=== PATIENT | female | born 1940 | race Caucasian/White ===

== ENCOUNTER 2020-02-20 11:49 | Observation (INO) | payer MEDICARE ==
[~2020-02-20] VITALS: Ht 152 cm; Wt 70.9 kg
[2020-02-20 12:03] LABS: BASOPHILS % (AUTO) 1 % (0-10); EOSINOPHILS # (AUTO) 0.3 10^3/uL (0.0-0.3); EOSINOPHILS % (AUTO) 5 % (0-10); HEMATOCRIT 30 % (35-52); HEMOGLOBIN 9.8 G/DL (11.5-16.0); LYMPHOCYTES # (AUTO) 1.1 X 10^3 (1.0-4.0); LYMPHOCYTES % (AUTO) 20 % (12-44); MEAN CORPUSCULAR HEMOGLOBIN 29 PG (25-34); MEAN CORPUSCULAR HGB CONC 32 G/DL (32-36); MEAN CORPUSCULAR VOLUME 91 FL (80-99); MEAN PLATELET VOLUME 9.4 FL (7.4-10.4); MONOCYTES # (AUTO) 0.6 X 10^3 (0.0-1.0); MONOCYTES % (AUTO) 11 % (0-12); NEUTROPHILS # (AUTO) 3.5 X 10^3 (1.8-7.8); NEUTROPHILS % (AUTO) 64 % (42-75); PLATELET COUNT 289 10^3/uL (130-400); RED CELL DISTRIBUTION WIDTH 12.7 % (10.0-14.5); WHITE BLOOD COUNT 5.5 10^3/uL (4.3-11.0)
[2020-02-20 12:10] LABS: ALBUMIN 3.9 GM/DL (3.2-4.5); CHLORIDE 104 MMOL/L (98-107); POTASSIUM 4.6 MMOL/L (3.6-5.0); SODIUM 136 MMOL/L (135-145)
--- NOTE | 2020-02-20 12:10 | ED Head Injury ---
General Chief Complaint: Trauma-Non Activation Stated Complaint: FALL Nursing Triage Note: FALL AT [facility] AFTER DIZZINESS Source: patient Exam Limitations: no limitations History of Present Illness Date Seen by Provider: Feb 20, 2020 Time Seen by Provider: 12:08 Initial Comments To ER by EMS from [facility] with reports of a fall and subsequent head injury. She was at [facility] when she began to feel hot and dizzy and then collapsed. Reportedly she was unresponsive for about 5 minutes afterwards. Upon EMS arrival she was nauseated. She did vomit in route to the hospital and was given Zofran which resolved her nausea. She does have persistent dizziness. No headache. No neck pain. No other injury. She does not remember falling. She denies any palpitations chest pain or shortness of breath preceding the fall or after the fall. Location Injury Occurred: [facility] Occurred: just prior to arrival Severity: moderate Associated Systoms: Nausea/Vomiting Allergies and Home Medications Allergies Coded Allergies: No Known Drug Allergies (Unverified , 02/20/20) Patient Home Medication List Home Medication List Reviewed: Yes Review of Systems Review of Systems Constitutional: see HPI Eyes: No Symptoms Reported Ears, Nose, Mouth, Throat: no symptoms reported Respiratory: no symptoms reported Cardiovascular: no symptoms reported Gastrointestinal: nausea, vomiting Genitourinary: no symptoms reported Musculoskeletal: no symptoms reported Skin: no symptoms reported Psychiatric/Neurological: No Symptoms Reported; Denies Headache Endocrine: No Symptoms Reported Hematologic/Lymphatic: No Symptoms Reported Past Jobgfst-Jpeejc-Hetcjt Hx Patient Social History Alcohol Use: Denies Use Recreational Drug Use: No Smoking Status: Never a Smoker Recent Hopitalizations: No Physical Abuse: No Sexual Abuse: No Seasonal Allergies Seasonal Allergies: Yes Physical Exam Vital Signs Vital Signs - First Documented 02/20/20 11:49 Temp 36.5 Pulse 67 Resp 17 B/P (MAP) 160/87 (111) Pulse Ox 97 Capillary Refill : Height, Weight, BMI Height: '" Weight: lbs. oz. kg; BMI Method: General Appearance: WD/WN, no apparent distress, other (alert. Converses with us appropriately. No bleeding scalp wound.) HEENT: PERRL/EOMI, normal ENT inspection, TMs normal, other (no Briones sign no hemotympanum) Neck: non-tender, full range of motion; No tender lateral, No tender midline Cardiovascular: regular rate, rhythm, no murmur Respiratory: normal breath sounds, no respiratory distress, no accessory muscle use Gastrointestinal: normal bowel sounds, non tender, soft Extremities: normal range of motion, non-tender Psychiatric: alert, oriented x 3 [place] Coma Score Best Eye Response: (4) Open Spontaneously Best Verbal Response: (5) Oriented Best Motor Response: (6) Obeys Commands [place] Total: 15 Progress/Results/Core Measures Results/Orders Lab Results Laboratory Tests Test 02/20/20 11:55 02/20/20 12:30 Range/Units White Blood Count 5.5 4.3-11.0 10^3/uL Red Blood Count 3.36 L 4.35-5.85 10^6/uL Hemoglobin 9.8 L 11.5-16.0 G/DL Hematocrit 30 L 35-52 % Mean Corpuscular Volume 91 80-99 FL Mean Corpuscular Hemoglobin 29 25-34 PG Mean Corpuscular Hemoglobin Concent 32 32-36 G/DL Red Cell Distribution Width 12.7 10.0-14.5 % Platelet Count 289 130-400 10^3/uL Mean Platelet Volume 9.4 7.4-10.4 FL Neutrophils (%) (Auto) 64 42-75 % Lymphocytes (%) (Auto) 20 12-44 % Monocytes (%) (Auto) 11 0-12 % Eosinophils (%) (Auto) 5 0-10 % Basophils (%) (Auto) 1 0-10 % Neutrophils # (Auto) 3.5 1.8-7.8 X 10^3 Lymphocytes # (Auto) 1.1 1.0-4.0 X 10^3 Monocytes # (Auto) 0.6 0.0-1.0 X 10^3 Eosinophils # (Auto) 0.3 0.0-0.3 10^3/uL Basophils # (Auto) 0.0 0.0-0.1 10^3/uL Sodium Level 136 135-145 MMOL/L Potassium Level 4.6 3.6-5.0 MMOL/L Chloride Level 104 98-107 MMOL/L Carbon Dioxide Level 19 L 21-32 MMOL/L Anion Gap 13 5-14 MMOL/L Blood Urea Nitrogen 29 H 7-18 MG/DL Creatinine 1.89 H 0.60-1.30 MG/DL Estimat Glomerular Filtration Rate 26 BUN/Creatinine Ratio 15 Glucose Level 209 H 70-105 MG/DL Calcium Level 8.9 8.5-10.1 MG/DL Corrected Calcium 9.0 8.5-10.1 MG/DL Total Bilirubin 0.3 0.1-1.0 MG/DL Aspartate Amino Transf (AST/SGOT) 11 5-34 U/L Alanine Aminotransferase (ALT/SGPT) 6 0-55 U/L Alkaline Phosphatase 41 40-136 U/L Troponin I < 0.028 <0.028 NG/ML Total Protein 6.4 6.4-8.2 GM/DL Albumin 3.9 3.2-4.5 GM/DL Urine Color YELLOW Urine Clarity CLEAR Urine pH 6.0 5-9 Urine Specific [place] 1.020 1.016-1.022 Urine Protein NEGATIVE NEGATIVE Urine Glucose (UA) NEGATIVE NEGATIVE Urine Ketones NEGATIVE NEGATIVE Urine Nitrite NEGATIVE NEGATIVE Urine Bilirubin NEGATIVE NEGATIVE Urine Urobilinogen 0.2 < = 1.0 MG/DL Urine Leukocyte Esterase NEGATIVE NEGATIVE Urine RBC (Auto) NEGATIVE NEGATIVE Urine RBC NONE /HPF Urine WBC RARE /HPF Urine Squamous Epithelial Cells 2-5 /HPF Urine Crystals NONE /LPF Urine Bacteria NEGATIVE /HPF Urine Casts NONE /LPF Urine Mucus NEGATIVE /LPF Urine Culture Indicated NO My Orders Orders - RACHELLE BLACKMAN APRN Cbc With Automated Diff (02/20/20 11:56) Comprehensive Metabolic Panel (02/20/20 11:56) Ua Culture If Indicated (02/20/20 11:56) Troponin I (02/20/20 11:56) Ekg Tracing (02/20/20 11:56) Ct Head/Cervical Spine Wo (02/20/20 11:56) Chest 1 View, Ap/Pa Only (02/20/20 11:56) Lactated Ringers (Lr 1000 Ml Iv Solution (02/20/20 12:30) Vital Signs/I&O 02/20/20 11:49 Temp 36.5 Pulse 67 Resp 17 B/P (MAP) 160/87 (111) Pulse Ox 97 Diagnostic Imaging Diagonstic Imaging: Xray, CT Comments NAME: YADI REDDING MED REC#: [id number] PT STATUS: REG ER : 1940 PHYSICIAN: RACHELLE BLACKMAN APRN ADMIT DATE: 02/20/20/ER Draft Date of Exam:02/20/20 CT HEAD/CERVICAL SPINE WO PROCEDURE: CT head and CT cervical spine without contrast. TECHNIQUE: Multiple contiguous axial images were obtained through the brain and cervical spine without the use of intravenous contrast. Sagittal and coronal reformations through the cervical spine were then performed. Auto Exposure Controls were utilized during the CT exam to meet ALARA standards for radiation dose reduction. INDICATION: Fall. Syncope. FINDINGS: CT HEAD: There is mild cortical atrophy. are not dilated. Diffuse bilateral periventricular white matter changes. There is a 10 mm area of decreased density more focally in the mid right centrum semi-ovale. Brainstem appears normal. Pituitary is not enlarged. No intracranial hemorrhage. Basal cisterns are clear. The mastoid air cells are clear. Paranasal sinuses are clear where visualized. IMPRESSION: 1. No acute intracranial abnormalities demonstrated. 2. Diffuse white matter changes with more focal area of decreased signal in the mid centrum semi-ovale measuring 10 mm which may represent old lacunar infarct. No previous studies for comparison. If clinically warranted MRI of the brain with evaluate further for acuity. CT CERVICAL SPINE: Sagittal and coronal reformatted images. There is good alignment. Body height is well-maintained. Advanced degenerative disc disease noted from C3 through C7. There is considerable loss of disc space height at C3-C4, C4-C5 C5-C6 and C6-C7. Mild hypertrophic endplate changes without significant stenosis noted. The odontoid intact with moderate degenerative change. The right lobe of the thyroid does appear to be significantly enlarged, concern of large nodule. IMPRESSION: 1. Advanced degenerative cervical disc disease throughout as described with no acute changes demonstrated. 2. Concern of thyroid nodule on the right. Dictated on workstation # [id number] Dict: 02/20/20 1238 Trans: 02/20/20 1254 CV [id number] Interpreted by: RHODA MCNAMARA MD Electronically signed by: Chest x-ray shows cardiomegaly but no other abnormality. Departure Communication (Admissions) Time/Spoke to Admitting Phy: 13:37 1254-still alert and oriented. Reviewed home med list, not on oral antic oagulants. Labs unremarkable except for some kidney dysfunction which they started on the BUN/creatinine ratio was believed to be chronic likely an effect of diabetes rather than a prerenal cause. No vomiting here. Awaiting CT report. Orthostatic vital signs being obtained now. 1337-there was no orthostatic hypotension during our orthostatic blood pressure checks. Spoke with Dr. Mcdaniels, we'll admit consult Dr. Underwood. Impression Primary Impression: Syncope and collapse Additional Impression: Concussion Disposition: ADMITTED INPATIENT Condition: Stable Admissions Decision to Admit Reason: Admit from ER (General) Decision to Admit/Date: Feb 20, 2020 Time/Decision to Admit Time: 13:37 Departure-Patient Inst. Decision time for Depature: 12:58 Patient Instructions: Syncope (Fainting) (DC) Add. Discharge Instructions: 1. Call your doctor tomorrow to make an appointment to be seen for follow-up. Return to ER for any recurrent symptoms or other concerns. All discharge instructions reviewed with patient and/or family. Voiced understanding. Copy Copies To 1: MADI MCDANIELS PETER J APRN Feb 20, 2020 12:10
[2020-02-20 12:11] LABS: CALCIUM 8.9 MG/DL (8.5-10.1)
[2020-02-20 12:12] LABS: GLUCOSE 209 MG/DL (70-105); TOTAL PROTEIN 6.4 GM/DL (6.4-8.2)
[2020-02-20 12:13] LABS: CARBON DIOXIDE 19 MMOL/L (21-32)
[2020-02-20 12:14] LABS: BILIRUBIN,TOTAL 0.3 MG/DL (0.1-1.0)
[2020-02-20 12:16] LABS: ALKALINE PHOSPHATASE 41 U/L (40-136); CREATININE SERUM 1.89 MG/DL (0.60-1.30); GFR ESTIMATED 26
[2020-02-20 12:17] LABS: BUN/CREATININE RATIO 15
[2020-02-20 12:19] LABS: ALANINE AMINOTRANSFERASE 6 U/L (0-55)
[2020-02-20] MEDS ORDERED: LACTATED RINGERS 1,000 ML IV SCH (12:30)
--- NOTE | 2020-02-20 12:34 | Diagnostic Imaging Report ---
INDICATION: Syncope with fall. FINDINGS: Portable AP chest. The lungs are well-aerated and clear. Heart upper limits of normal. Aorta is atherosclerotic. No evidence of pulmonary edema or hilar adenopathy. No pneumothorax or pleural effusion. No bony abnormalities. IMPRESSION: Mild cardiomegaly without acute change. Dictated by: Dictated on workstation # [id number]
[2020-02-20 12:37] LABS: BILIRUBIN,URINE NEGATIVE (NEGATIVE); CLARITY,URINE CLEAR; COLOR,URINE YELLOW; GLUCOSE, URINE (UA) NEGATIVE (NEGATIVE); KETONES,URINE NEGATIVE (NEGATIVE); LEUKOCYTE ESTERASE ,URINE NEGATIVE (NEGATIVE); NITRITE,URINE NEGATIVE (NEGATIVE); PROTEIN,URINE NEGATIVE (NEGATIVE)
[2020-02-20 12:44] LABS: BACTERIA,URINE NEGATIVE /HPF; WBC,URINE RARE /HPF
--- NOTE | 2020-02-20 12:54 | Diagnostic Imaging Report ---
PROCEDURE: CT head and CT cervical spine without contrast. TECHNIQUE: Multiple contiguous axial images were obtained through the brain and cervical spine without the use of intravenous contrast. Sagittal and coronal reformations through the cervical spine were then performed. Auto Exposure Controls were utilized during the CT exam to meet ALARA standards for radiation dose reduction. INDICATION: Fall. Syncope. FINDINGS: CT HEAD: There is mild cortical atrophy. The ventricles Are not dilated. Diffuse bilateral periventricular white matter changes. There is a 10 mm area of decreased density more focally in the mid right centrum semi-ovale. Brainstem appears normal. Pituitary is not enlarged. No intracranial hemorrhage. Basal cisterns are clear. The mastoid air cells are clear. Paranasal sinuses are clear where visualized. IMPRESSION: 1. No acute intracranial abnormalities demonstrated. 2. Diffuse white matter changes with more focal area of decreased signal in the mid centrum semi-ovale measuring 10 mm which may represent old lacunar infarct. No previous studies for comparison. If clinically warranted MRI of the brain with evaluate further for acuity. CT CERVICAL SPINE: Sagittal and coronal reformatted images. There is good alignment. Body height is well-maintained. Advanced degenerative disc disease noted from C3 through C7. There is considerable loss of disc space height at C3-C4, C4-C5 C5-C6 and C6-C7. Mild hypertrophic endplate changes without significant stenosis noted. The odontoid intact with moderate degenerative change. The right lobe of the thyroid does appear to be significantly enlarged, concern of large nodule. IMPRESSION: 1. Advanced degenerative cervical disc disease throughout as described with no acute changes demonstrated. 2. Concern of thyroid nodule on the right. Dictated by: Dictated on workstation # [id number]
--- NOTE | 2020-02-20 13:20 | NUR ---
DR JUSTIN HERE TO SEE PT
[2020-02-20 13:51] VITALS: BP_SYST 143; BP_SYST 159; BP_DIAS 61; BP_DIAS 70
--- NOTE | 2020-02-20 14:10 | NUR ---
YADI REDDING Rafi admitted to room 421-1, with an admitting diagnosis of SYNCOPE, on 02/20/20 from ED via , accompanied by STAFF. YADI REDDING introduced to surroundings, call light, bed controls, phone, TV, temperature control, lights, meal times, smoking policy, visitor policy, side rail policy, bathrooms and showers. Patient Rights given to patient in the handbook. YADI REDDING verbalizes understanding that [facility] is not responsible for the loss or damage to any personal effects or valuables that are kept in the patients posession during their hospitalization. The following Patient Care Plans were discussed with the PT: Discharge Planning, PAIN, AND SYNCOPE. YADI REDDING verbalizes understanding of Interdisciplinary Patient Education. Patient and/or family were informed about the Rapid Response Team and its purpose.
[2020-02-20 14:13] VITALS: BP 171/72
--- NOTE | 2020-02-20 14:21 | Consultation-Cardiology ---
HPI-Cardiology Cardiology Consultation: Date of Consultation 02/20/20 Date of Admission Attending Physician Sindhu Webster DO Admitting Physician Sindhu Webster DO Consulting Physician Shruthi UNDERWOOD MD HPI: Time Seen by a Provider: 13:00 Chief Complaint: Syncope this is a 79-year-old lady who denies any past cardiac history. She was brought by emergency services from the [facility] where she passed out. According to the patient she hada small breakfast. She was not dehydrated. She was standing in the [employer] and became dizzy and passed out. She denies having any chest pain or shortness of breath before passing out. She does not remember how long she was passed out. Other people told the EMS that she was out for a few minutes. Her blood pressure was stable. She was not orthostatic in the ER. CT scanof the head does not show any acute head or cervical injury. She has history of diabetes. She denies active smoking. Pertinent family history is negative. As mentioned earlier she denied chest pain or shortness of breath. Review of Systems-Cardiology Review of Systems Constitutional: As described under HPI; No As described under HPI, No no symptoms reported, No chills, No fever, No lightheadedness Eyes: No As described under HPI, No no symptoms reported, No blindness, No blurred vision, No contact lenses, No drainage, No decreased acuity, No foreign body sensation, No pain, No vision change Ears/Nose/Throat: No As described under HPI, No no symptoms reported, No chronic hearing loss, No ear discharge, No ear pain, No nasal drainage, No ulcerations Respiratory: No no symptoms reported; As described under HPI; No As described under HPI, No cough, No orthopnea, No shortness of breath, No SOB with excertion Cardiovascular: No no symptoms reported; As described under HPI; No As described under HPI, No chest pain, No edema, No irregular heart rate, No lightheadedness, No palpitations; syncope Gastrointestinal: No no symptoms reported, No As described under HPI, No abdomen distended, No abdominal pain, No blood streaked bowels, No constipation, No diarrhea, No nausea, No vomiting, No stool coloration changes Genitourinary: No As described under HPI, No burning, No dysuria, No discharge, No frequency, No flank pain, No hematuria, No urgency : Yes : No Skin: No rash, No skin related problems, No ulcerations Psychiatric/Neurological: No anxiety, No depression, No seizure, No focal weakness, No syncope Hematologic: No bleeding abnormalities EHY-Afsrhr-Jlufjo Hx Patient Social History Alcohol Use: Denies Use Recreational Drug Use: No Smoking Status: Never a Smoker Recent Foreign Travel: No Recent Infectious Disease Expo: No Hospitalization with Isolation: Denies Past Medical History PMH As described under Assessment. Allergies and Home Medications Allergies Coded Allergies: No Known Drug Allergies (Unverified , 02/20/20) Patient Home Medication List Home Medication List Reviewed: Yes Physical Exam-Cardiology Physical Exam Vital Signs/I&O 02/20/20 02/20/20 02/20/20 11:49 13:44 13:51 Temp 36.5 Pulse 67 64 88 108 95 Resp 17 11 B/P (MAP) 160/87 (111) 159/70 (111) 143/61 (88) 159/70 (99) 159/70 (99) Pulse Ox 97 97 Capillary Refill : Less Than 3 Seconds Constitutional: appears stated age, AAO x 3; No apparent distress; well- developed, well-nourished HEENT: PERRL; No discharge; hearing is well preserved, oral hygience is good; No ulceration, No xanthelasmas are seen Neck: No carotid bruit; carotid pulses are 2 + bilaterally Respiratory: chest is bilaterally symmetric, lungs clear to auscultation Cardiovascular: regular rate-rhythm, S1 and S2; No diastolic murmur, No systolic murmur Gastrointestinal: soft, audible bowel sounds; No spleenomegaly Rectal: deferred Extremities: normal range of motion, non-tender, normal inspection; No clubbing, No cyanosis; no lower extremity edema bilateral; No significant edema Neurologic/Psychiatric: no motor/sensory deficits, alert, normal mood/affect, oriented x 3, power is 5/5 both on sides Skin: normal color, warm/dry; No rash, No ulcerations Data Review Labs Laboratory Tests 02/20/20 11:55: White Blood Count 5.5, Red Blood Count 3.36L, Hemoglobin 9.8L, Hematocrit 30L, Mean Corpuscular Volume 91, Mean Corpuscular Hemoglobin 29, Mean Corpuscular Hemoglobin Concent 32, Red Cell Distribution Width 12.7, Platelet Count 289, Mean Platelet Volume 9.4, Neutrophils (%) (Auto) 64, Lymphocytes (%) (Auto) 20, Monocytes (%) (Auto) 11, Eosinophils (%) (Auto) 5, Basophils (%) (Auto) 1, Neutrophils # (Auto) 3.5, Lymphocytes # (Auto) 1.1, Monocytes # (Auto) 0.6, Eosinophils # (Auto) 0.3, Basophils # (Auto) 0.0, Sodium Level 136, Potassium Level 4.6, Chloride Level 104, Carbon Dioxide Level 19L, Anion Gap 13, Blood Urea Nitrogen 29H, Creatinine 1.89H, Estimat Glomerular Filtration Rate 26, BUN/Creatinine Ratio 15, Glucose Level 209H, Calcium Level 8.9, Corrected Calcium 9.0, Total Bilirubin 0.3, Aspartate Amino Transf (AST/SGOT) 11, Alanine Aminotransferase (ALT/SGPT) 6, Alkaline Phosphatase 41, Troponin I < 0.028, Total Protein 6.4, Albumin 3.9 02/20/20 12:30: Urine Color YELLOW, Urine Clarity CLEAR, Urine pH 6.0, Urine Specific [place] 1.020, Urine Protein NEGATIVE, Urine Glucose (UA) NEGATIVE, Urine Ketones NEGATIVE, Urine Nitrite NEGATIVE, Urine Bilirubin NEGATIVE, Urine Urobilinogen 0.2, Urine Leukocyte Esterase NEGATIVE, Urine RBC (Auto) NEGATIVE, Urine RBC NONE, Urine WBC RARE, Urine Squamous Epithelial Cells 2-5, Urine Crystals NONE, Urine Bacteria NEGATIVE, Urine Casts NONE, Urine Mucus NEGATIVE, Urine Culture Indicated NO ECG Impression ECG Initial ECG Rhythm: Normal Sinus Initial ECG Impression: Normal A/P-Cardiology Assessment/Admission Diagnosis syncope, Head injury, Acute kidney injury, Anemia, Diabetes, Hyperglycemia Plan syncope, orthostatic blood pressure was normal. Normal EKG. Telemetry, echocardiogram, myocardial perfusion imaging. Head injury,negative CT head and neck. Acute kidney injury,unclear etiology. Could be acute on chronic kidney disease due to diabetes. IV fluids. Will likely require nephrology follow-up as an outpatient. Anemia,unclear etiology. Could be secondary to chronic kidney disease. Diabetes, defer to the primary team. Hyperglycemia Thank you for your consultation. Please call me if you have any questions. Earle Underwood MD, FACP, FACC, FSCAI, FHRS, CCDS Interventional Cardiology Cardiac Electrophysiology Vascular Medicine and Endovascular Interventions Shruthi UNDERWOOD MD Feb 20, 2020 14:21
[2020-02-20] MEDS ORDERED: REGADENOSON 0.4 MG/5 ML SYR (LEXISCAN) IV ONE (14:30)
[2020-02-20] MEDS ORDERED: CATHETER FLUSH 10 ML SYR IV PRN (14:30)
[2020-02-20] MEDS ORDERED: ACETAMINOPHEN 325 MG TABLET PO PRN (14:30)
[2020-02-20] MEDS ORDERED: ONDANSETRON 4 MG/2 ML (SDV) Z0FRAN IV PRN (14:30)
[2020-02-20] MEDS ORDERED: MECLIZINE 25 MG (ANTIVERT) TAB PO PRN (14:30)
[2020-02-20] MEDS ORDERED: DOCUSATE SODIUM 100 MG (COLACE) CAP PO PRN (15:00)
[2020-02-20] MEDS ORDERED: diphenhydrAMINE 25 MG TAB (BENADRYL) PO PRN (15:00)
[2020-02-20] MEDS ORDERED: MELATONIN 3 MG TABLET PO PRN (15:00)
[2020-02-20] MEDS ORDERED: amLODIPine 5 MG (NORVASC) TAB PO NR (15:00)
[2020-02-20] MEDS ORDERED: ALPRAZolam 0.25 MG (XANAX) TAB PO PRN (15:00)
[2020-02-20] MEDS ORDERED: CALCIUM CARBONATE 500 MG (TUMS) TAB.CHEW PO PRN (15:00)
[2020-02-20] MEDS: NS IV 1000 ML 1,000 ML IV SCH (15:41)
[2020-02-20] MEDS: inSUlin ASPART (NovoLOG) 1 UNIT/0.01 ML (CHARGE PER UNIT) SC SCH ×2 (15:47→20:27)
[2020-02-20 16:00] VITALS: BP 164/69
[2020-02-20] MEDS ORDERED: ENOXAPARIN 30 MG/0.3 ML (LOVENOX) SYR SC SCH (20:00)
[2020-02-20] MEDS ORDERED: ENOXAPARIN 30 MG/0.3 ML (LOVENOX) SYR ONE (20:07)
[2020-02-20] MEDS: SENNA W/DOCUSATE (SENOKOT S) TABLET PO SCH (20:13)
[2020-02-20 20:21] VITALS: BP 143/70
[2020-02-20] MEDS: CATHETER FLUSH 10 ML SYR IV SCH (20:27)
[2020-02-21 00:15] VITALS: BP 138/68
[2020-02-21] MEDS: CATHETER FLUSH 10 ML SYR IV SCH ×2 (03:20→15:00)
[2020-02-21 03:38] VITALS: BP 132/72
[2020-02-21] MEDS: NS IV 1000 ML 1,000 ML IV SCH (04:35)
--- NOTE | 2020-02-21 05:54 | History & Physical ---
History of Present Illness HPI/Chief Complaint CC: Syncope HPI: This is a 79[facility] Pt of mine who presented after [facility] with a syncopal episode, she was found to have an elevated creatinine above her baseline of 1.5-1.8 and reports that she felt warm before she found herself on the floor. Her blood sugars have been running about the same and it was 200 when it was checked by EMS. She was sent to the ER by EMS, CT scan normal, everything remains stable but I felt like she needed cardiac risk-stratification for syncopal episode. At this current time she reports that she is doing well, she just had a fatmata-scan, I did speak with cardiology and she reports she did have nausea and vomiting Friday and and likely she had some volume depletion causing the syncopal episode several days later. Source: patient, RN/MD Exam Limitations: no limitations Date Seen 02/21/20 Time Seen by a Provider: 09:00 Attending Physician Sindhu Webster DO PCP Sindhu Webster DO Referring Physician Date of Admission Feb 20, 2020 at 13:15 Home Medications & Allergies Home Medications Reviewed patient Home Medication Reconciliation performed by pharmacy medication reconciliations set up technician and/or nursing. Patients Allergies have been reviewed. Allergies Allergies Coded Allergies No Known Drug Allergies (Unverified02/20/20) Past Qgzkexp-Dcljob-Mqpyhp Hx Past Med/Social Hx: Reviewed Nursing Past Med/Soc Hx, Reviewed and Corrections made Patient Social History Marrital Status: single Employed/Student: retired Alcohol Use: Denies Use Recreational Drug Use: No Smoking Status: Never a Smoker Physical Abuse Screen: No Sexual Abuse: No Recent Foreign Travel: No Contact w/other who traveled: No Recent Hopitalizations: No Recent Infectious Disease Expo: No Immunizations Up To Date Date of Pneumonia Vaccine: Jan 21, 2018 Seasonal Allergies Seasonal Allergies: Yes Past Medical History Cardiac: High Cholesterol, Hypertension : No Genitourinary: Renal Failure Musculoskeletal: Degenerate Disk Disease Endocrine: Diabetes, Non-Insulin dep Psychosocial: Depression History of Blood Disorders: No Adverse Reaction to Blood [place]: No Review of Systems Constitutional: dizziness, malaise, weakness Physical Exam Physical Exam Vital Signs Vital Signs - First Documented 02/20/20 02/20/20 11:49 14:13 Temp 36.5 Pulse 67 Resp 17 B/P (MAP) 160/87 (111) Pulse Ox 97 O2 Delivery Room Air Capillary Refill : Less Than 3 SecondsLess Than 3 Seconds Height, Weight, BMI Height: '" Weight: lbs. oz. kg; 30.47 BMI Method: General Appearance: No Apparent Distress, WD/WN Eyes: Bilateral Eye Normal Inspection, Bilateral Eye PERRL HEENT: PERRL/EOMI, TMs Normal, Normal ENT Inspection, Pharynx Normal Neck: Full Range of Motion, Normal Inspection, Non Tender, Supple, Carotid Bruit Respiratory: Chest Non Tender, Lungs Clear, Normal Breath Sounds, No Accessory Muscle Use, No Respiratory Distress Cardiovascular: Regular Rate, Rhythm, No Edema, No Gallop, No JVD, No Murmur, Normal Peripheral Pulses Gastrointestinal: Normal Bowel Sounds, No Organomegaly, No Pulsatile Mass, Non Tender, Soft Back: Normal Inspection, No CVA Tenderness, No Vertebral Tenderness Extremity: Normal Capillary Refill, Normal Inspection, Normal Range of Motion, Non Tender, No Calf Tenderness, No Pedal Edema Neurologic/Psychiatric: Alert, Oriented x3, No Motor/Sensory Deficits, Normal Mood/Affect Skin: Normal Color, Warm/Dry Lymphatic: No Adenopathy Results Results/Procedures Labs Laboratory Tests 02/20/20 11:55 02/21/20 06:00 Patient resulted labs reviewed. Assessment/Plan Admission Diagnosis Assessment: Syncope DM HTN CRI HLP Plan: Stress test per cardiology Appreciate Dr. Underwood Monitor creatinine Admission Status: Observation Diagnosis/Problems Diagnosis/Problems (1) Syncope and collapse Status: Acute (2) Concussion Status: Acute Clinical Quality Measures DVT/VTE Risk/Contraindication: Risk Factor Score Per Nursin RFS Level Per Nursing on Admit: 3=High SINDHU WEBSTER DO Feb 21, 2020 05:54
[2020-02-21 06:26] LABS: BASOPHILS % (AUTO) 0 % (0-10); EOSINOPHILS # (AUTO) 0.2 10^3/uL (0.0-0.3); EOSINOPHILS % (AUTO) 4 % (0-10); HEMATOCRIT 29 % (35-52); HEMOGLOBIN 9.4 G/DL (11.5-16.0); LYMPHOCYTES # (AUTO) 1.4 X 10^3 (1.0-4.0); LYMPHOCYTES % (AUTO) 26 % (12-44); MEAN CORPUSCULAR HGB CONC 33 G/DL (32-36); MEAN CORPUSCULAR VOLUME 91 FL (80-99); MEAN PLATELET VOLUME 9.5 FL (7.4-10.4); MONOCYTES # (AUTO) 0.6 X 10^3 (0.0-1.0); MONOCYTES % (AUTO) 12 % (0-12); NEUTROPHILS % (AUTO) 58 % (42-75); PLATELET COUNT 275 10^3/uL (130-400); RED CELL DISTRIBUTION WIDTH 12.8 % (10.0-14.5); WHITE BLOOD COUNT 5.2 10^3/uL (4.3-11.0)
[2020-02-21 06:28] LABS: MEAN CORPUSCULAR HEMOGLOBIN 29 PG (25-34)
[2020-02-21 06:43] LABS: ALBUMIN 3.7 GM/DL (3.2-4.5)
[2020-02-21] MEDS: inSUlin ASPART (NovoLOG) 1 UNIT/0.01 ML (CHARGE PER UNIT) SC SCH ×3 (06:43→16:00)
[2020-02-21 06:44] LABS: POTASSIUM 4.1 MMOL/L (3.6-5.0)
[2020-02-21 06:45] LABS: CALCIUM 8.6 MG/DL (8.5-10.1)
[2020-02-21 06:48] LABS: BILIRUBIN,TOTAL 0.2 MG/DL (0.1-1.0)
[2020-02-21 06:50] LABS: CREATININE SERUM 1.42 MG/DL (0.60-1.30)
[2020-02-21] MEDS ORDERED: REGADENOSON 0.4 MG/5 ML SYR (LEXISCAN) IV ONE (08:11)
[2020-02-21 08:21] VITALS: BP 156/70
[2020-02-21] MEDS ORDERED: amLODIPine 5 MG (NORVASC) TAB PO SCH (09:00)
[2020-02-21] MEDS: SENNA W/DOCUSATE (SENOKOT S) TABLET PO SCH (09:46)
--- NOTE | 2020-02-21 10:42 | Physical Therapy Evaluation ---
PT Evaluation-General Medical Diagnosis Admission Date Feb 20, 2020 at 13:15 Medical Diagnosis: syncope/collapse concussion Onset Date: Feb 20, 2020 Therapy Diagnosis Therapy Diagnosis: debility Precautions Precautions/Isolations: Fall Prevention, Standard Precautions Referral Physician: Eleanor Reason for Referral: Evaluation/Treatment Medical History Current History EMS from [facility] secondary to syncope (patient reports she hasn't felt well for 3-4 days prior) Reviewed History: Yes Social History Home: Single Level Current Living Status: Alone Entry Into Home: Stairs With Railing PT Steps Into Home: 2 Prior Prior Level of Function SCALE: Activities may be completed with or without assistive devices. 4-Xcpqlurxmi-[id number] completes the activity by him/herself with no assistance from a helper. 5-Set-up or Clean-up Assistance-helper sets up or cleans up; patient completes activity. Underwood assists only prior to or following the activity. 4-Supervision or Touching Assistance-helper provides verbal cues and/or touching/steadying and/or contact guard assistance as patient completes activity. Assistance may be provided throughout the activity or intermittently. 3-Partial/Moderate Assistance-helper does LESS THAN HALF the effort. Underwood lifts, holds or supports trunk or limbs, but provides less than half the effort. 2-Substantial/Maximal Assistance-helper does MORE THAN HALF the effort. Underwood lifts or holds trunk or limbs and provides more than half the effort. 8-Vahqqwnig-zrmxtm does ALL the effort. Patient does none of the effort to complete the activity. Or, the assistance of 2 or more helpers is required for the patient to complete the activity. If activity was not attempted, code reason: 7-Patient Refused. 9-Not Applicable-not attempted and the patient did not perform the activity before the current illness, exacerbation or injury. 10-Not Attempted due to Environmental Limitations-(lack of equipment, weather restraints, etc.). 88-Not Attempted due to Medical Conditions or Safety Concerns. Bed Mobility: 6 Transfers (B,C,W/C): 6 Gait: 6 Stairs: 6 Indoor Mobility (Ambulation): Independent Stairs: Independent Prior Devices Use: None PT Evaluation-Current Subjective Patient reports she is feeling much better today and agrees to PT. Objective Patient Orientation: Normal For Age ROM/Strength ROM Lower Extremities bilateral LE WFL Strength Lower Extremities 4+/5 grossly bilateral LE Integumentary/Posture Integumentary refer to nursing notes Bowel Incontinence: No Bladder Incontinence: No Posture WFL Neuromuscular (Tone, Coordination, Reflexes) grossly intact Sensory Vision: Wears Glasses Hearing: Functional Sensation Right Lower Extremit: Intact Sensation Left Lower Extremity: Intact Transfers Roll Left to Right (QC): 6 Sit to Lying (QC): 6 Lying to Sitting/Side of Bed(Q: 6 Sit to Stand (QC): 6 Gait Does the Patient Walk?: Yes Mode of Locomotion: Walk Anticipated Mode of Locomotion: Walk Walk 10 feet (QC): 6 Walk 50 ft with 2 Turns(QC): 6 Walk 150 ft (QC): 6 Distance: 800' Gait Assistive Device: None Comments/Gait Description safe and functional with no deviation Stairs #of Steps: 12 1 Step (curb) (QC): 6 4 Steps (QC): 6 12 Steps (QC): 6 Balance Sitting Static: Normal Sitting Dynamic: Normal Standing Static: Normal Standing Dynamic: Normal Assessment/Needs 79 y.o. female, is currently at [facility] with all gross motor skills and does not require skilled therapy intervention. Rehab Potential: Good PT Plan Treatment/Plan Treatment Plan: Discontinue PT, goals met Treatment Duration: Feb 21, 2020 Frequency: 1 time per week Estimated Hrs Per Day: .25 hour per day Patient and/or Family Agrees t: Yes Time/GCodes Time In: 1015 Time Out: 1025 Total Billed Treatment Time: 10 Total Billed Treatment 1 visit EVLowC 10 min TARSHA HENRIQUEZ PT Feb 21, 2020 10:42
[2020-02-21 12:00] VITALS: BP 175/74
[2020-02-21] MEDS ORDERED: NF-VITD400 PO (14:17)
[2020-02-21] MEDS ORDERED: CARV25TA PO (14:17)
[2020-02-21] MEDS ORDERED: VITA10007 PO (14:17)
[2020-02-21] MEDS ORDERED: LOSA25TA41 PO (14:17)
[2020-02-21] MEDS ORDERED: METF-399 PO (14:17)
[2020-02-21] MEDS ORDERED: GLIP10TA24 PO (14:17)
[2020-02-21] MEDS ORDERED: CITA20TA9 PO (14:17)
[2020-02-21] MEDS ORDERED: CETI10TA21 PO (14:17)
[2020-02-21] MEDS ORDERED: CARB15DR2 OU (14:17)
[2020-02-21] MEDS ORDERED: ASPI-992 PO (14:17)
[2020-02-21] MEDS ORDERED: PANT40TA3 PO (14:17)
[2020-02-21] MEDS ORDERED: ROSU5TAB13 PO (14:17)
--- NOTE | 2020-02-21 14:17 | NUR ---
"RD ASSESSMENT PMHx: DM; HTN PT INTERACTION: Pt was awake and pleasant during nutrition assessment. Pt states current appetite is not great. Note avg PO intake 25% x1meal, per chart review. Pt states following a regular diet at home, and has no issues with chewing/swallowing food. Pt states no recent issues with nausea, vomiting, constipation, or diarrhea, and that her last BM was 02/19. Note pt currently on bowel regimen of senna BID, per chart review. Pt states no recent wt changes. Note unable to determine recent wt hx, per chart review. Pt states current DM management is pretty good. Note unable to determine recent HbA1c, per chart review. ABNORMAL NUTRITION-RELATED LAB VALUES LOW: HIGH: BUN 22; cr 1.42 Est. kcal needs: 1400 kcal | 20 kcal/kg Est. Pro needs: 56 g Pro | 0.8 g Pro/kg PES STATEMENT: Inadequate oral intake (NI-2.1) related to loss of appetite as evidenced by pt interview | PO intake 25% x1meal INTERVENTION: Continue with current diet order of CHO 60g/m 3snack diet. Add Glucerna (vary) to meals TID, for increasd kcal intake. Provides 220 kcal and 10 g Pro per serving. Offered diet education on DM management, but pt declined at this time. Will attempt to offer again prior to admit. Will continue to follow and reassess as pt needs, intake, and status change. MONITOR/EVALUATE: PO Intake; Plan of Care; Hydration Status; Weight Status; Lab Values Dot Torre, MS, RD, LD"
--- NOTE | 2020-02-21 14:18 | NUR ---
I SPOKE WITH THE PATIENT AND WENT THROUGH THE EXTERNAL MED HISTORY TO COMPLETE THIS MED REC. OTC: ZYRTEC VITAMIN E VITAMIN D EXCEDRIN REFRESH EYE DROPS
--- NOTE | 2020-02-21 14:48 | Occ Therapy Progress Note ---
Therapy Progress Note OT order received, chart reviewed. Pt. in bed. Alert and oriented. Pt. reports that she is feeling much better, and that she has been up twice to bathroom with no difficulty. Pt. having no issues with feeding, toileting, or donning slipper socks. PT ambulated with pt. earlier and reports that she is independent. Pt. reports no OT therapy needs at this time. Thank you for this referral. 1, visit [id number] No further OT warranted. GEOVANNA VEGAS OT Feb 21, 2020 14:48
[2020-02-21] MEDS ORDERED: MECL-149 PO (15:22)
[2020-02-21] MEDS ORDERED: AMLO5TAB9 PO (15:22)
--- NOTE | 2020-02-21 15:22 | Discharge Summary ---
Diagnosis/Chief Complaint Date of Admission Feb 20, 2020 at 13:15 Date of Discharge Discharge Date: Feb 21, 2020 Discharge Diagnosis Syncope Dehydration DM ARF on CRI HTN Discharge Summary Discharge Physical Examination Allergies: Coded Allergies: No Known Drug Allergies (Unverified , 02/20/20) Vitals & I&Os Vital Signs Date Time Temp Pulse Resp B/P (MAP) Pulse Ox O2 Delivery O2 Flow Rate FiO2 02/21/20 17:04 02/21/20 16:00 37.3 70 18 96 Room Air General Appearance: Alert, Oriented X3, Cooperative Respiratory: Clear to Auscultation Cardiovascular: Regular Rate Neuro: Normal Gait, Normal Speech, Strength at 5/5 X4 Ext Psych/Mental Status: Mental Status NL Hospital Course Was the Problem List Reviewed?: Yes Short course after admitted following syncope after adventism. Patient given gentle IVF for elevated creatinine 1.8 above her baseline of 1.4. Cardiology performed EST which revealed no reversible ischemia and ECHO was stable and 30 day event monitor placed and patient was DC in improved condition. Labs (last 24 hrs) Laboratory Tests 02/20/20 11:55: White Blood Count 5.5, Red Blood Count 3.36L, Hemoglobin 9.8L, Hematocrit 30L, Mean Corpuscular Volume 91, Mean Corpuscular Hemoglobin 29, Mean Corpuscular Hemoglobin Concent 32, Red Cell Distribution Width 12.7, Platelet Count 289, Mean Platelet Volume 9.4, Neutrophils (%) (Auto) 64, Lymphocytes (%) (Auto) 20, Monocytes (%) (Auto) 11, Eosinophils (%) (Auto) 5, Basophils (%) (Auto) 1, Neutrophils # (Auto) 3.5, Lymphocytes # (Auto) 1.1, Monocytes # (Auto) 0.6, Eosinophils # (Auto) 0.3, Basophils # (Auto) 0.0, Sodium Level 136, Potassium Level 4.6, Chloride Level 104, Carbon Dioxide Level 19L, Anion Gap 13, Blood Urea Nitrogen 29H, Creatinine 1.89H, Estimat Glomerular Filtration Rate 26, BUN/Creatinine Ratio 15, Glucose Level 209H, Calcium Level 8.9, Corrected Calcium 9.0, Total Bilirubin 0.3, Aspartate Amino Transf (AST/SGOT) 11, Alanine Aminotransferase (ALT/SGPT) 6, Alkaline Phosphatase 41, Troponin I < 0.028, Total Protein 6.4, Albumin 3.9 02/20/20 12:30: Urine Color YELLOW, Urine Clarity CLEAR, Urine pH 6.0, Urine Specific [place]iba 1.020, Urine Protein NEGATIVE, Urine Glucose (UA) NEGATIVE, Urine Ketones NEGATIVE, Urine Nitrite NEGATIVE, Urine Bilirubin NEGATIVE, Urine Urobilinogen 0.2, Urine Leukocyte Esterase NEGATIVE, Urine RBC (Auto) NEGATIVE, Urine RBC NONE, Urine WBC RARE, Urine Squamous Epithelial Cells 2-5, Urine Crystals NONE, Urine Bacteria NEGATIVE, Urine Casts NONE, Urine Mucus NEGATIVE, Urine Culture Indicated NO 02/20/20 15:08: Lactic Acid Level 1.48 02/20/20 15:46: Glucometer 110 02/20/20 20:25: Glucometer 137H 02/21/20 06:00: White Blood Count 5.2, Red Blood Count 3.19L, Hemoglobin 9.4L, Hematocrit 29L, Mean Corpuscular Volume 91, Mean Corpuscular Hemoglobin 29, Mean Corpuscular Hemoglobin Concent 33, Red Cell Distribution Width 12.8, Platelet Count 275, Mean Platelet Volume 9.5, Neutrophils (%) (Auto) 58, Lymphocytes (%) (Auto) 26, Monocytes (%) (Auto) 12, Eosinophils (%) (Auto) 4, Basophils (%) (Auto) 0, Neutrophils # (Auto) 3.0, Lymphocytes # (Auto) 1.4, Monocytes # (Auto) 0.6, Eosinophils # (Auto) 0.2, Basophils # (Auto) 0.0, Sodium Level 139, Potassium Level 4.1, Chloride Level 107, Carbon Dioxide Level 24, Anion Gap 8, Blood Urea Nitrogen 22H, Creatinine 1.42H, Estimat Glomerular Filtration Rate 36, BUN/Creatinine Ratio 15, Glucose Level 88, Calcium Level 8.6, Corrected Calcium 8.8, Total Bilirubin 0.2, Aspartate Amino Transf (AST/SGOT) 13, Alanine Aminotransferase (ALT/SGPT) 6, Alkaline Phosphatase 40, Total Protein 6.0L, Albumin 3.7 02/21/20 10:44: Glucometer 193H 02/21/20 15:53: Glucometer 171H Pending Labs Laboratory Tests 02/20/20 11:55: White Blood Count 5.5, Red Blood Count 3.36, Hemoglobin 9.8, Hematocrit 30, Mean Corpuscular Volume 91, Mean Corpuscular Hemoglobin 29, Mean Corpuscular Hemoglobin Concent 32, Red Cell Distribution Width 12.7, Platelet Count 289, Mean Platelet Volume 9.4, Neutrophils (%) (Auto) 64, Lymphocytes (%) (Auto) 20, Monocytes (%) (Auto) 11, Eosinophils (%) (Auto) 5, Basophils (%) (Auto) 1, Neutrophils # (Auto) 3.5, Lymphocytes # (Auto) 1.1, Monocytes # (Auto) 0.6, Eosinophils # (Auto) 0.3, Basophils # (Auto) 0.0, Sodium Level 136, Potassium Level 4.6, Chloride Level 104, Carbon Dioxide Level 19, Anion Gap 13, Blood Urea Nitrogen 29, Creatinine 1.89, Estimat Glomerular Filtration Rate 26, BUN/Creatinine Ratio 15, Glucose Level 209, Calcium Level 8.9, Corrected Calcium 9.0, Total Bilirubin 0.3, Aspartate Amino Transf (AST/SGOT) 11, Alanine Aminotransferase (ALT/SGPT) 6, Alkaline Phosphatase 41, Troponin I < 0.028, Total Protein 6.4, Albumin 3.9 02/20/20 12:30: Urine Color YELLOW, Urine Clarity CLEAR, Urine pH 6.0, Urine Specific Ceiba 1.020, Urine Protein NEGATIVE, Urine Glucose (UA) NEGATIVE, Urine Ketones NEGATIVE, Urine Nitrite NEGATIVE, Urine Bilirubin NEGATIVE, Urine Urobilinogen 0.2, Urine Leukocyte Esterase NEGATIVE, Urine RBC (Auto) NEGATIVE, Urine RBC NONE, Urine WBC RARE, Urine Squamous Epithelial Cells 2-5, Urine Crystals NONE, Urine Bacteria NEGATIVE, Urine Casts NONE, Urine Mucus NEGATIVE, Urine Culture Indicated NO 02/20/20 15:08: Lactic Acid Level 1.48 02/20/20 15:46: Glucometer 110 02/20/20 20:25: Glucometer 137 02/21/20 06:00: White Blood Count 5.2, Red Blood Count 3.19, Hemoglobin 9.4, Hematocrit 29, Mean Corpuscular Volume 91, Mean Corpuscular Hemoglobin 29, Mean Corpuscular Hemoglobin Concent 33, Red Cell Distribution Width 12.8, Platelet Count 275, Mean Platelet Volume 9.5, Neutrophils (%) (Auto) 58, Lymphocytes (%) (Auto) 26, Monocytes (%) (Auto) 12, Eosinophils (%) (Auto) 4, Basophils (%) (Auto) 0, Neutrophils # (Auto) 3.0, Lymphocytes # (Auto) 1.4, Monocytes # (Auto) 0.6, Eosinophils # (Auto) 0.2, Basophils # (Auto) 0.0, Sodium Level 139, Potassium Level 4.1, Chloride Level 107, Carbon Dioxide Level 24, Anion Gap 8, Blood Urea Nitrogen 22, Creatinine 1.42, Estimat Glomerular Filtration Rate 36, BUN/Creatinine Ratio 15, Glucose Level 88, Calcium Level 8.6, Corrected Calcium 8.8, Iron Level [Pending], Total Bilirubin 0.2, Aspartate Amino Transf (AST/SGOT) 13, Alanine Aminotransferase (ALT/SGPT) 6, Alkaline Phosphatase 40, Total Protein 6.0, Albumin 3.7 02/21/20 10:44: Glucometer 193 02/21/20 15:53: Glucometer 171 Discharge Home Medications: Active Scripts Active Meclizine HCl 25 Mg Tablet 12.5 Mg PO BID PRN Amlodipine Besylate 5 Mg Tablet 5 Mg PO DAILY Reported Refresh Optive Eye Drops (Carboxymethylcellulos/Glycerin) 15 Ml Drops 1 Drop OU PRN PRN Excedrin Extra Strength Caplet (Aspirin/Acetaminophen/Caffeine) 1 Each Tablet 1 Each PO PRN PRN Vitamin D3 (Vitamin D) 10 Mcg Tablet 400 Mcg PO DAILY Vitamin E 1,000 Unit Capsule 1,000 Unit PO DAILY Zyrtec (Cetirizine HCl) 10 Mg Tablet 10 Mg PO DAILY Losartan Potassium 25 Mg Tablet 25 Mg PO DAILY Carvedilol 25 Mg Tablet 25 Mg PO BID Rosuvastatin Calcium 5 Mg Tablet 5 Mg PO DAILY Metformin HCl 1,000 Mg Tablet 1,000 Mg PO BID Citalopram HBr (Citalopram Hydrobromide) 20 Mg Tablet 20 Mg PO DAILY Glipizide ER (Glipizide) 10 Mg Tab.er.24 10 Mg PO BID Pantoprazole Sodium 40 Mg Tablet.dr 40 Mg PO DAILY TAKES BEFORE BREAKFAST Instructions to patient/family Please see electronic discharge instructions given to patient. Clinical Quality Measures DVT/VTE Risk/Contraindication: Risk Factor Score Per Nursin RFS Level Per Nursing on Admit: 3=High MADI MCDANIELS DO Feb 21, 2020 15:22
--- NOTE | 2020-02-21 15:31 | Cardiology Progress Note ---
Cardiology SOAP Progress Note Subjective: No cardiac complaints. Objective: I&O/Vital Signs 02/21/20 02/21/20 02/21/20 02/21/20 03:38 06:44 07:25 08:21 Temp 36.8 Pulse 68 63 67 Resp 17 B/P (MAP) 132/72 (92) 156/70 (98) Pulse Ox 98 97 O2 Delivery Room Air Room Air 02/21/20 02/21/20 12:00 12:38 Temp 36.7 Pulse 79 70 Resp 18 B/P (MAP) 175/74 (107) Pulse Ox 98 O2 Delivery Room Air 02/21/20 00:00 Intake Total 1590 ml Output Total 500 ml Balance 1090 ml Constitutional: appears stated age, AAO x 3; No apparent distress; well- developed, well-nourished Respiratory: chest is bilaterally symmetric, lungs clear to auscultation Cardiovascular: regular rate-rhythm, S1 and S2; No diastolic murmur, No systolic murmur Gastrointestional: soft, audible bowel sounds; No spleenomegaly Extremities: normal range of motion, non-tender, normal inspection; No clubbing, No cyanosis; no lower extremity edema bilateral; No significant edema Neurologic/Psychiatric: no motor/sensory deficits, alert, normal mood/affect, oriented x 3, power is 5/5 both on sides Skin: normal color, warm/dry; No rash, No ulcerations Results/Procedures: Labs Laboratory Tests 02/20/20 15:46: Glucometer 110 02/20/20 20:25: Glucometer 137H 02/21/20 06:00: White Blood Count 5.2, Red Blood Count 3.19L, Hemoglobin 9.4L, Hematocrit 29L, Mean Corpuscular Volume 91, Mean Corpuscular Hemoglobin 29, Mean Corpuscular Hemoglobin Concent 33, Red Cell Distribution Width 12.8, Platelet Count 275, Mean Platelet Volume 9.5, Neutrophils (%) (Auto) 58, Lymphocytes (%) (Auto) 26, Monocytes (%) (Auto) 12, Eosinophils (%) (Auto) 4, Basophils (%) (Auto) 0, Neutrophils # (Auto) 3.0, Lymphocytes # (Auto) 1.4, Monocytes # (Auto) 0.6, Eosinophils # (Auto) 0.2, Basophils # (Auto) 0.0, Sodium Level 139, Potassium Level 4.1, Chloride Level 107, Carbon Dioxide Level 24, Anion Gap 8, Blood Urea Nitrogen 22H, Creatinine 1.42H, Estimat Glomerular Filtration Rate 36, BUN/Creatinine Ratio 15, Glucose Level 88, Calcium Level 8.6, Corrected Calcium 8.8, Total Bilirubin 0.2, Aspartate Amino Transf (AST/SGOT) 13, Alanine Aminotransferase (ALT/SGPT) 6, Alkaline Phosphatase 40, Total Protein 6.0L, Albumin 3.7 02/21/20 10:44: Glucometer 193H A/P: Assessment/Dx: syncope, Head injury, Acute kidney injury, Anemia, Diabetes, Hyperglycemia Plan: syncope, orthostatic blood pressure was normal. Normal EKG. telemetry normal. Echocardiogram within normal limits. No significant valvular heart disease. Normal LVEF. Myocardial perfusion imaging shows no evidence of ischemia. Patient can be discharged on an event monitor for a month. I can follow-up as an outpatient. Head injury,negative CT head and neck. Acute kidney injury,unclear etiology. Could be acute on chronic kidney disease due to diabetes. IV fluids. Will likely require nephrology follow-up as an outpatient. Anemia,unclear etiology. Could be secondary to chronic kidney disease. Diabetes, defer to the primary team. Hyperglycemia Thank you for your consultation. Please call me if you have any questions. Earle Underwood MD, FACP, FACC, FSCAI, FHRS, CCDS Interventional Cardiology Cardiac Electrophysiology Vascular Medicine and Endovascular Interventions Focused Exam Lactate Level 02/20/20 15:08: Lactic Acid Level 1.48 Shruthi UNDERWOOD MD Feb 21, 2020 15:31
--- NOTE | 2020-02-21 15:32 | Cardiology Stress Test Report ---
Stress Test Report Type of NM Stress Test: Test Type: LEXISCAN 0.4MG/5ML Date of Procedure/Referring: Date of Procedure: Feb 21, 2020 PCP Sindhu Webster DO Admitting Physician Sindhu Websetr DO Indications: Syncope Baseline Heart Rate: 67 Baseline Blood Pressure: Blood Pressure Systolic: 175 Blood Pressure Diastolic: 74 Baseline EKG: Baseline EKG: sinus rhythm Summary & Conclusion: Summary: The patient was brought to the stress lab after informed consent was taken. Stress test was performed according to the Lexiscan protocol. 0.4 mg of IV Lexiscan was given. Low-grade exercise was performed. Baseline EKG showed sinus rhythm at 67 BPM, blood pressure 156/70 mmHg. Maximum heart rate of 104 bpm and blood pressure of 202/79 mmHg. Patient did not have any chest pain, arrhythmias or ST segment changes during the stress test. 10.27 mCi of Myoview were given for rest imaging and 30.9 mCi of Myoview given for stress imaging. Transient ischemic dilatation score 1.09, EF 71 percent. Normal wall motion. Normal myocardial perfusion imaging during rest and stress. Conclusion: Pharmacological stress test was negative for ischemia. Normal LV function with no wall motion abnormalities. Normal myocardial perfusion imaging during rest and stress. Shruthi BENITES MD Feb 21, 2020 15:32
[2020-02-21 16:00] VITALS: BP 163/77
== END 2020-02-21 17:05 | disposition home or self-care (01) ==
LOC: ER 11:50 → 4TH 13:15
PROVIDERS: ADMIT Internal Medicine; ATTEND Internal Medicine
DX: R55 Syncope and collapse (principal); S06.0X9A Concussion with loss of consciousness of unspecified duration, initial encounter; E86.0 Dehydration; I12.9 Hypertensive chronic kidney disease with stage 1 through stage 4 chronic kidney disease, or unspecified chronic kidney disease; N18.9 Chronic kidney disease, unspecified; E11.22 Type 2 diabetes mellitus with diabetic chronic kidney disease; I36.1 Nonrheumatic tricuspid (valve) insufficiency; Z79.84 Long term (current) use of oral hypoglycemic drugs; Z79.899 Other long term (current) drug therapy; W19.XXXA Unspecified fall, initial encounter
CPT/HCPCS: 70450; 71045; 72125; 78452; 80053 ×2; 81000; 82962 ×2; 83540; 83605; 84484; 85025 ×2; 93005; 93017; 93306; 97161; 99284; A9502; 36415; G0378

== ENCOUNTER 2020-02-21 17:02 | Outpatient (RCR) | payer MEDICARE ==
[~2020-02-21 17:02] MED LIST: AMLO-250 PO; ASPI-992 PO; CARB15DR2 OU; CARV25TA PO; CETI10TA49 PO; CITA20TA9 PO; GLIP10TA24 PO; LOSA25TA41 PO; MECL-149 PO; METF-399 PO; NF-VITD400 PO; PANT40TA52 PO; ROSU5TAB13 PO; VITA10007 PO
== END 2020-05-21 ==
LOC: CARD 17:02
PROVIDERS: ATTEND Internal Medicine Interventional Cardiology
DX: R55 Syncope and collapse (principal)

== ENCOUNTER 2020-03-20 17:40 | Observation (INO) | payer MEDICARE ==
[~2020-03-20] VITALS: Ht 155 cm; Wt 67.4 kg
[~2020-03-20 17:40] MED LIST changes: -AMLO-250 PO; +AMLO5TAB9 PO
--- NOTE | 2020-03-20 17:54 | ED Head Injury ---
General Chief Complaint: Head/Cervical Problems Stated Complaint: FALL INJURY;HEAD INJURY Source: patient Exam Limitations: no limitations History of Present Illness Date Seen by Provider: Mar 20, 2020 Time Seen by Provider: 17:50 Initial Comments Ambulatory into ER, well dressed and clean with reports of a head injury. States that she was going up 2 or 3 steps into her house when she fell backwards. She was using her right arm to hold the door open and had her left arm holding her purse which she states through off her balance. She was feeling fine before the fall and still feels fine. She has a bit of soreness to the left side of her neck. She believes she might have lost consciousness. No confusion no headache no vomiting. She is not anticoagulated. Occurred: just prior to arrival Severity: moderate Method of Injury: unknown Associated Systoms: Denies Symptoms Allergies and Home Medications Allergies Coded Allergies: No Known Drug Allergies (Unverified , 02/20/20) Home Medications Amlodipine Besylate 5 Mg Tablet, 5 MG PO DAILY Prescribed by: MADI MCDANIELS on 02/21/20 1522 Aspirin/Acetaminophen/Caffeine 1 Each Tablet, 1 EACH PO PRN PRN for HEADACHE, (Reported) Carboxymethylcellulos/Glycerin 15 Ml Drops, 1 DROP OU PRN PRN for ALLERGIES, (Reported) Carvedilol 25 Mg Tablet, 25 MG PO BID, (Reported) Cetirizine HCl 10 Mg Tablet, 10 MG PO DAILY, (Reported) Citalopram Hydrobromide 20 Mg Tablet, 20 MG PO DAILY, (Reported) Glipizide 10 Mg Tab.er.24, 10 MG PO BID, (Reported) Losartan Potassium 25 Mg Tablet, 25 MG PO DAILY, (Reported) Meclizine HCl 25 Mg Tablet, 12.5 MG PO BID PRN for DIZZINESS Prescribed by: MADI MCDANIELS on 02/21/20 1522 Metformin HCl 1,000 Mg Tablet, 1,000 MG PO BID, (Reported) Pantoprazole Sodium 40 Mg Tablet.dr, 40 MG PO DAILY, (Reported) TAKES BEFORE BREAKFAST Rosuvastatin Calcium 5 Mg Tablet, 5 MG PO DAILY, (Reported) Vitamin D 10 Mcg Tablet, 400 MCG PO DAILY, (Reported) Vitamin E 1,000 Unit Capsule, 1,000 UNIT PO DAILY, (Reported) Patient Home Medication List Home Medication List Reviewed: Yes Review of Systems Review of Systems Constitutional: see HPI Eyes: No Symptoms Reported Ears, Nose, Mouth, Throat: no symptoms reported Respiratory: no symptoms reported Cardiovascular: no symptoms reported Genitourinary: no symptoms reported Musculoskeletal: see HPI Skin: no symptoms reported Psychiatric/Neurological: No Symptoms Reported Past Vauvsfe-Rcnttb-Hcwdkn Hx Patient Social History Recent Foreign Travel: No Contact w/Someone Who Travel: No Recent Hopitalizations: No Immunizations Up To Date Date of Pneumonia Vaccine: Jan 21, 2018 Seasonal Allergies Seasonal Allergies: Yes Past Medical History Surgeries: No Respiratory: No Cardiac: Yes Neurological: No Genitourinary: No Gastrointestinal: No Musculoskeletal: Yes Degenerate Disk Disease Endocrine: Yes HEENT: No Cancer: No Psychosocial: Yes Depression Integumentary: No Blood Disorders: No Adverse Reaction/Blood Tranf: No Physical Exam Vital Signs Vital Signs - First Documented 03/20/20 17:49 Temp 37.1 Pulse 72 Resp 18 B/P (MAP) 189/87 (121) Pulse Ox 99 O2 Delivery Room Air Capillary Refill : Height, Weight, BMI Height: '" Weight: lbs. oz. kg; 30.47 BMI Method: General Appearance: WD/WN, no apparent distress, other (alert and oriented clean well appearing.) HEENT: PERRL/EOMI, normal ENT inspection, TMs normal, other (there is a left parietal scalp hematoma with some dried blood in her hair. After I scrubbed this up though I can only see a very small punctate wound that was oozing but is not actively bleeding.) Neck: non-tender, full range of motion Cardiovascular: regular rate, rhythm, no murmur Respiratory: no respiratory distress, no accessory muscle use Gastrointestinal: normal bowel sounds, non tender Extremities: normal range of motion, non-tender Psychiatric: alert, oriented x 3, other (GCS 15) Skin: normal color, warm/dry Wili Coma Score Best Eye Response: (4) Open Spontaneously Best Verbal Response: (5) Oriented Best Motor Response: (6) Obeys Commands Progress/Results/Core Measures Results/Orders Lab Results Laboratory Tests Test 03/20/20 18:09 Range/Units White Blood Count 10.5 4.3-11.0 10^3/uL Red Blood Count 3.42 L 4.35-5.85 10^6/uL Hemoglobin 10.0 L 11.5-16.0 G/DL Hematocrit 30 L 35-52 % Mean Corpuscular Volume 88 80-99 FL Mean Corpuscular Hemoglobin 29 25-34 PG Mean Corpuscular Hemoglobin Concent 33 32-36 G/DL Red Cell Distribution Width 12.5 10.0-14.5 % Platelet Count 275 130-400 10^3/uL Mean Platelet Volume 9.3 7.4-10.4 FL Neutrophils (%) (Auto) 80 H 42-75 % Lymphocytes (%) (Auto) 11 L 12-44 % Monocytes (%) (Auto) 7 0-12 % Eosinophils (%) (Auto) 2 0-10 % Basophils (%) (Auto) 0 0-10 % Neutrophils # (Auto) 8.4 H 1.8-7.8 X 10^3 Lymphocytes # (Auto) 1.1 1.0-4.0 X 10^3 Monocytes # (Auto) 0.8 0.0-1.0 X 10^3 Eosinophils # (Auto) 0.3 0.0-0.3 10^3/uL Basophils # (Auto) 0.0 0.0-0.1 10^3/uL Sodium Level 136 135-145 MMOL/L Potassium Level 4.5 3.6-5.0 MMOL/L Chloride Level 105 98-107 MMOL/L Carbon Dioxide Level 23 21-32 MMOL/L Anion Gap 8 5-14 MMOL/L Blood Urea Nitrogen 18 7-18 MG/DL Creatinine 1.34 H 0.60-1.30 MG/DL Estimat Glomerular Filtration Rate 38 BUN/Creatinine Ratio 13 Glucose Level 183 H 70-105 MG/DL Calcium Level 9.0 8.5-10.1 MG/DL My Orders Orders - RACHELLE BLACKMAN APRN Ct Head/Cervical Spine Wo (03/20/20 17:43) Cbc With Automated Diff (03/20/20 18:04) Basic Metabolic Panel (03/20/20 18:04) Ed Iv/Invasive Line Start (03/20/20 18:04) Vital Signs/I&O 03/20/20 17:49 Temp 37.1 Pulse 72 Resp 18 B/P (MAP) 189/87 (121) Pulse Ox 99 O2 Delivery Room Air Diagnostic Imaging Diagonstic Imaging: CT Comments NAME: YADI REDDING [facility] REC#: [id number] PT STATUS: REG ER : 1940 PHYSICIAN: RACHELLE BLACKMAN APRN ADMIT DATE: 03/20/20/ER Draft Date of Exam:03/20/20 CT HEAD/CERVICAL SPINE WO PROCEDURE: CT head and CT cervical spine without contrast. TECHNIQUE: Multiple contiguous axial images were obtained through the brain and cervical spine without the use of intravenous contrast. Sagittal and coronal reformations through the cervical spine were then performed. Auto Exposure Controls were utilized during the CT exam to meet ALARA standards for radiation dose reduction. INDICATION: Syncope with fall, head and neck injury. COMPARISON: 02/20/2020. FINDINGS: CT head: The ventricles and cortical sulci demonstrate mild parenchymal volume loss. There are scattered areas of hypoattenuation in the white matter which are likely from chronic microvascular disease. No acute intracranial hemorrhage is seen. There is no CT evidence of acute territorial ischemia. There is no midline shift or mass effect. The calvarium appears intact. There is a very large left parietal scalp hematoma which measures 8 x 2.9 x 7.6 cm in size. There is a focus of soft tissue air suggestive of laceration. CT cervical spine: There is minimal anterolisthesis at C3-C4 and at C7-T1. There are advanced degenerative changes at C3-C4, C4-C5 and at C7-T1. No acute fracture is seen. There is facet arthropathy on the left at C3-C4. Soft tissues about the cervical spine demonstrate no acute abnormality. IMPRESSION: 1. Very large left parietal scalp hematoma. Small focus of air likely from laceration. No calvarium fracture or intracranial hemorrhage is seen. 2. Extensive white matter hypodensities, most likely from chronic microvascular disease. 3. Degenerative changes in the cervical spine with no acute fracture seen. Dictated on workstation # [id number] Dict: 03/20/20 1816 Trans: 03/20/20 1830 [facility] [id number] Interpreted by: CRISTÓBAL MACIAS MD Electronically signed by: Departure Communication (Admissions) Time/Spoke to Admitting Phy: 19:17 Impression Primary Impression: Closed head injury Qualified Codes: S09.90XA - Unspecified injury of head, initial encounter Additional Impression: Scalp hematoma Qualified Codes: S00.03XA - Contusion of scalp, initial encounter Disposition: ADMITTED INPATIENT Condition: Stable Admissions Decision to Admit Reason: Admit from ER (General) Decision to Admit/Date: Mar 20, 2020 Time/Decision to Admit Time: 19:17 Departure-Patient Inst. Decision time for Depature: 18:33 Referrals: MADI MCDANIELS DO (PCP/Family) Primary Care Physician Patient Instructions: Closed Head Injury Add. Discharge Instructions: 1. Follow-up with Dr. Mcdaniels as scheduled 2. Return to ER for any worsening or other concerns such as severe headache nausea vomiting confusion. All discharge instructions reviewed with patient and/or family. Voiced understanding. RACHELLE BLACKMAN APRN Mar 20, 2020 17:53
[2020-03-20 18:14] LABS: BASOPHILS % (AUTO) 0 % (0-10); EOSINOPHILS # (AUTO) 0.3 10^3/uL (0.0-0.3); EOSINOPHILS % (AUTO) 2 % (0-10); HEMATOCRIT 30 % (35-52); LYMPHOCYTES # (AUTO) 1.1 X 10^3 (1.0-4.0); LYMPHOCYTES % (AUTO) 11 % (12-44); MEAN CORPUSCULAR HEMOGLOBIN 29 PG (25-34); MEAN CORPUSCULAR HGB CONC 33 G/DL (32-36); MEAN CORPUSCULAR VOLUME 88 FL (80-99); MEAN PLATELET VOLUME 9.3 FL (7.4-10.4); MONOCYTES # (AUTO) 0.8 X 10^3 (0.0-1.0); MONOCYTES % (AUTO) 7 % (0-12); NEUTROPHILS # (AUTO) 8.4 X 10^3 (1.8-7.8); NEUTROPHILS % (AUTO) 80 % (42-75); PLATELET COUNT 275 10^3/uL (130-400); WHITE BLOOD COUNT 10.5 10^3/uL (4.3-11.0)
[2020-03-20 18:30] LABS: POTASSIUM 4.5 MMOL/L (3.6-5.0)
--- NOTE | 2020-03-20 18:31 | Diagnostic Imaging Report ---
PROCEDURE: CT head and CT cervical spine without contrast. TECHNIQUE: Multiple contiguous axial images were obtained through the brain and cervical spine without the use of intravenous contrast. Sagittal and coronal reformations through the cervical spine were then performed. Auto Exposure Controls were utilized during the CT exam to meet ALARA standards for radiation dose reduction. INDICATION: Syncope with fall, head and neck injury. COMPARISON: 02/20/2020. FINDINGS: CT head: The ventricles and cortical sulci demonstrate mild parenchymal volume loss. There are scattered areas of hypoattenuation in the white matter which are likely from chronic microvascular disease. No acute intracranial hemorrhage is seen. There is no CT evidence of acute territorial ischemia. There is no midline shift or mass effect. The calvarium appears intact. There is a very large left parietal scalp hematoma which measures 8 x 2.9 x 7.6 cm in size. There is a focus of soft tissue air suggestive of laceration. CT cervical spine: There is minimal anterolisthesis at C3-C4 and at C7-T1. There are advanced degenerative changes at C3-C4, C4-C5 and at C7-T1. No acute fracture is seen. There is facet arthropathy on the left at C3-C4. Soft tissues about the cervical spine demonstrate no acute abnormality. IMPRESSION: 1. Very large left parietal scalp hematoma. Small focus of air likely from laceration. No calvarium fracture or intracranial hemorrhage is seen. 2. Extensive white matter hypodensities, most likely from chronic microvascular disease. 3. Degenerative changes in the cervical spine with no acute fracture seen. Dictated by: Dictated on workstation # [id number]
[2020-03-20 18:35] LABS: CREATININE SERUM 1.34 MG/DL (0.60-1.30)
[2020-03-20 20:15] VITALS: BP 166/76
--- NOTE | 2020-03-20 20:15 | NUR ---
YADI REDDING admitted to room 416-1, with an admitting diagnosis of CLOSED HEAD INJURY, on 03/20/20 from [facility] ER via WHEELCHAIR, accompanied by ER PCT. YADI REDDING introduced to surroundings, call light, bed controls, phone, TV, temperature control, lights, meal times, smoking policy, visitor policy, side rail policy, bathrooms and showers. Patient Rights given to patient in the handbook. YADI REDDING verbalizes understanding that [facility] is not responsible for the loss or damage to any personal effects or valuables that are kept in the patients possession during their hospitalization.
[2020-03-20 20:27] VITALS: BP 166/76
[2020-03-20] MEDS ORDERED: CATHETER FLUSH 10 ML SYR IV PRN (20:30)
[2020-03-20] MEDS ORDERED: DOCUSATE SODIUM 100 MG (COLACE) CAP PO PRN (20:30)
[2020-03-20] MEDS ORDERED: MECLIZINE 25 MG (ANTIVERT) TAB PO PRN ×3 (20:30→22:30)
[2020-03-20] MEDS ORDERED: LOPERAMIDE 2 MG (IMODIUM) TABLET PO PRN (20:30)
[2020-03-20] MEDS ORDERED: ONDANSETRON 4 MG/2 ML (SDV) Z0FRAN IVP PRN (20:30)
[2020-03-20] MEDS ORDERED: diphenhydrAMINE 25 MG TAB (BENADRYL) PO PRN (20:30)
[2020-03-20] MEDS ORDERED: CALCIUM CARBONATE 500 MG (TUMS) TAB.CHEW PO PRN (20:30)
[2020-03-20] MEDS ORDERED: ONDANSETRON 4 MG (ZOFRAN) ORAL DISSOLVE TAB PO PRN (20:30)
[2020-03-20] MEDS ORDERED: ACETAMINOPHEN 500 MG TAB (TYLENOL) PO PRN (20:30)
--- NOTE | 2020-03-20 20:34 | History & Physical ---
History of Present Illness HPI/Chief Complaint CC: Fall with head injury HPI: This is a 79yoWF clinic patient of mine who was just admitted after a syncopal episode earlier this month who presents after a fall getting into her door with her arms full and striking her head with LOC for uncertain amount of time. Decision was made to admit for observation due to LOC and her dizziness when she was in CT scan. PT will be consulted to evaluate her balance. Creat 1.3. Source: patient, RN/MD Exam Limitations: no limitations Date Seen 03/20/20 Time Seen by a Provider: 18:30 Attending Physician iSndhu Webster DO PCP Sindhu Webster DO Referring Physician Date of Admission Mar 20, 2020 at 18:40 Home Medications & Allergies Home Medications Reviewed patient Home Medication Reconciliation performed by pharmacy medication reconciliations robotics testing technician and/or nursing. Patients Allergies have been reviewed. Allergies Allergies Coded Allergies No Known Drug Allergies (Unverified02/20/20) Past Zmjncao-Jzrrne-Rwyuzx Hx Past Med/Social Hx: Reviewed Nursing Past Med/Soc Hx, Reviewed and Corrections made Patient Social History Marrital Status: single Employed/Student: retired Alcohol Use: Denies Use Recreational Drug Use: No Smoking Status: Former Smoker Former Smoker, Quit: Feb 21, 1961 Recent Foreign Travel: No Contact w/other who traveled: No Recent Hopitalizations: Yes (01/2020 FOR A FALL) Recent Infectious Disease Expo: No Immunizations Up To Date Date of Pneumonia Vaccine: Jan 21, 2018 Seasonal Allergies Seasonal Allergies: Yes Past Medical History Cardiac: High Cholesterol, Hypertension Genitourinary: Renal Failure Musculoskeletal: Degenerate Disk Disease Endocrine: Diabetes, Non-Insulin dep Psychosocial: Depression History of Blood Disorders: No Adverse Reaction to Blood Riley: No Review of Systems Constitutional: see HPI, dizziness Psychiatric/Neurological: Headache Physical Exam Physical Exam Vital Signs Vital Signs - First Documented 03/20/20 17:49 Temp 37.1 Pulse 72 Resp 18 B/P (MAP) 189/87 (121) Pulse Ox 99 O2 Delivery Room Air Capillary Refill : Less Than 3 Seconds Height, Weight, BMI Height: '" Weight: lbs. oz. kg; 28.05 BMI Method: General Appearance: No Apparent Distress, WD/WN, Chronically ill Eyes: Bilateral Eye Normal Inspection, Bilateral Eye PERRL HEENT: PERRL/EOMI, Normal ENT Inspection, Pharynx Normal Neck: Full Range of Motion, Normal Inspection, Non Tender, Supple, Carotid Bruit Respiratory: Chest Non Tender, Lungs Clear, Normal Breath Sounds, No Accessory Muscle Use, No Respiratory Distress Cardiovascular: Regular Rate, Rhythm, No Edema, No Gallop, No JVD, No Murmur, Normal Peripheral Pulses Gastrointestinal: Normal Bowel Sounds, No Organomegaly, No Pulsatile Mass, Non Tender, Soft Back: Normal Inspection, No CVA Tenderness, No Vertebral Tenderness Extremity: Normal Capillary Refill, Normal Inspection, Normal Range of Motion, Non Tender, No Calf Tenderness, No Pedal Edema Neurologic/Psychiatric: Alert, Oriented x3, No Motor/Sensory Deficits, Normal Mood/Affect, cytometry technologist II-XII Norm as Tested Skin: Normal Color, Warm/Dry Lymphatic: No Adenopathy Results Results/Procedures Labs Laboratory Tests 03/20/20 18:09 03/21/20 04:13 Patient resulted labs reviewed. Assessment/Plan Admission Diagnosis Assessment: Closed head injury with LOC Falls DM HTN CRI Plan: Supportive care Neuro checks Monitor sugar Check labs in am PT OT Admission Status: Observation Diagnosis/Problems Diagnosis/Problems (1) Closed head injury Status: Acute Qualifiers: Encounter type: initial encounter Qualified Codes: S09.90XA - Unspecified injury of head, initial encounter (2) LOC (loss of consciousness) (3) Scalp hematoma Status: Acute Qualifiers: Encounter type: initial encounter Qualified Codes: S00.03XA - Contusion of scalp, initial encounter Clinical Quality Measures DVT/VTE Risk/Contraindication: Contraindications-Pharm: Other *list below* Other: head injury SINDHU WEBSTER DO Mar 20, 2020 20:34
[2020-03-20] MEDS: polyethylene glycoL POWDER 17 GM (MIRALAX) PACK PO SCH (22:08)
[2020-03-20] MEDS: inSUlin ASPART (NovoLOG) 1 UNIT/0.01 ML (CHARGE PER UNIT) SC SCH (22:08)
[2020-03-20] MEDS: SENNA W/DOCUSATE (SENOKOT S) TABLET PO SCH (22:08)
[2020-03-20] MEDS: CATHETER FLUSH 10 ML SYR IV SCH (22:09)
[2020-03-20] MEDS: HYDROcodone/APAP 5 MG/325 MG (LORTAB) TAB PO PRN (22:11)
[2020-03-20 23:05] VITALS: BP 172/69
[2020-03-21 03:36] VITALS: BP 177/78
[2020-03-21 04:48] LABS: BASOPHILS % (AUTO) 0 % (0-10); EOSINOPHILS # (AUTO) 0.1 10^3/uL (0.0-0.3); EOSINOPHILS % (AUTO) 1 % (0-10); HEMATOCRIT 29 % (35-52); HEMOGLOBIN 9.6 g/dL (11.5-16.0); LYMPHOCYTES # (AUTO) 0.8 10^3/uL (1.0-4.0); LYMPHOCYTES % (AUTO) 13 % (12-44); MEAN CORPUSCULAR HEMOGLOBIN 29 pg (25-34); MEAN CORPUSCULAR HGB CONC 33 g/dL (32-36); MEAN CORPUSCULAR VOLUME 88 fL (80-99); MEAN PLATELET VOLUME 9.8 fL (9.0-12.2); MONOCYTES # (AUTO) 0.6 10^3/uL (0.0-1.0); MONOCYTES % (AUTO) 10 % (0-12); NEUTROPHILS # (AUTO) 4.9 10^3/uL (1.8-7.8); NEUTROPHILS % (AUTO) 76 % (42-75); PLATELET COUNT 243 10^3/uL (130-400); WHITE BLOOD COUNT 6.5 10^3/uL (4.3-11.0)
[2020-03-21 04:59] LABS: POTASSIUM 4.1 MMOL/L (3.6-5.0)
[2020-03-21 05:00] LABS: CALCIUM 9.1 MG/DL (8.5-10.1)
[2020-03-21 05:02] LABS: TOTAL PROTEIN 6.6 GM/DL (6.4-8.2)
[2020-03-21 05:03] LABS: BILIRUBIN,TOTAL 0.5 MG/DL (0.1-1.0)
[2020-03-21 05:05] LABS: CREATININE SERUM 1.25 MG/DL (0.60-1.30)
[2020-03-21] MEDS: CATHETER FLUSH 10 ML SYR IV SCH (06:39)
[2020-03-21] MEDS: inSUlin ASPART (NovoLOG) 1 UNIT/0.01 ML (CHARGE PER UNIT) SC SCH ×2 (06:39→12:03)
--- NOTE | 2020-03-21 08:09 | Occupational Therapy Eval ---
OT Evaluation-General/PLF Medical Diagnosis Admission Date Mar 20, 2020 at 18:40 Medical Diagnosis: syncope with head/ neck injury Onset Date: Mar 20, 2020 Therapy Diagnosis Therapy Diagnosis: Decreased ADL status Precautions Precautions/Isolations: Fall Prevention, Standard Precautions Weight Bear Status Weight Bearing Restriction: Full Weight Bearing Referral Physician: Eleanor Referral Reason: Activity Tolerance, Self Care, Evaluation/Treatment, Strengthening/ROM Medical History Pertinent Medical History: DM, HTN Additional Medical History HTN, renal insufficiency, DDD, NID DM, depression Current History Pt pushed open front door and lost balance, falling backwards striking L head/ neck with LOC. Reviewed History: Yes Social History Home: Single Level Current Living Status: Alone Entry Into Home: Stairs With Railing Steps Into Home: 3 Steps Inside Home: 0 ADL-Prior Level of Function SCALE: Activities may be completed with or without assistive devices. 6-Hbosiasibr-mucjphc completes the activity by him/herself with no assistance from a helper. 5-Set-up or Clean-up Assistance-helper sets up or cleans up; patient completes activity. [place] assists only prior to or following the activity. 4-Supervision or Touching Assistance-helper provides verbal cues and/or touchi ng/steadying and/or contact guard assistance as patient completes activity. Assistance may be provided throughout the activity or intermittently. 3-Partial/Moderate Assistance-helper does LESS THAN HALF the effort. [place] lifts, holds or supports trunk or limbs, but provides less than half the effort. 2-Substantial/Maximal Assistance-helper does MORE THAN HALF the effort. [place] lifts or holds trunk or limbs and provides more than half the effort. 7-Tqojuvrom-tmsfrf does ALL the effort. Patient does none of the effort to complete the activity. Or, the assistance of 2 or more helpers is required for the patient to complete the activity. If activity was not attempted, code reason: 7-Patient Refused. 9-Not Applicable-not attempted and the patient did not perform the activity before the current illness, exacerbation or injury. 10-Not Attempted due to Environmental Limitations-(lack of equipment, weather restraints, etc.). 88-Not Attempted due to Medical Conditions or Safety Concerns. ADL PLOF Comments IND with I/ADL tasks Self Care: Independent Functional Cognition: Independent DME/Equipment: Bath Chair, Grab Bars, Shower DME/Equipment Comments sc, gbs Occupation: retired Drive Self: Yes OT Current Status Subjective Pt seen in bed, supine/ asleep. Pt states pain in L side of back/ head. Pt has slight bruising of L eye. Pt agrees to OT eval/ treat. Pt denies dizziness in stance. Mental Status/Objective Patient Orientation: Person, Place, Time, Situation, Normal For Age Current Glasses/Contacts: Yes Hearing Aids: No Hand Dominance: Right (ambidextrous) Upper Extremity ROM Decreased shoulder scaption- requiring increased time. all distal joints WFL Upper Extremity Coordination WFL BUE Upper Extremity Sensation WFL per pt. Upper Extremity Strength WFL (4/5 shoulder flexion and elbow flexion) ADL-Treatment Eating (QC): 6 (per pt.) Toileting Hygiene (QC): 7 (denies, stating utilized bathroom with SUP this am.) Other Treatments Pt seen in bed, supine to sit with IND. Reaches EOB with IND, sit to stand without AD SBA, ambulates to chair ~5 feet with no LOB/ no c/o dizziness. Pt states slight dizziness this am from supine to stance/ during toileting. Pt sits with control. Completes MMT/ ROM as outlined. Pt tracks finger in all planes. Main complaint pain in L/ upper back. Pt able to complete ADLs per pt, pt educat ed on no need for skilled OT tx while here in acute. Pt agrees, all needs met, call light on lap, pt sitting in recliner. Education OT Patient Education: Correct positioning, Progress toward Goal/Update tx plan, Purpose of tx/functional activities, Safety issues Teaching Recipient: Patient Teaching Methods: Demonstration, Discussion Response to Teaching: Verbalize Understanding, Return Demonstration OT Web Design Intern Goals Web Design Intern Goals 1=Demonstrate adherence to instructed precautions during ADL tasks. 2=Patient will verbalize/demonstrate understanding of assistive devices/modifications for ADL. 3=Patient will improve strength/tolerance for activity to enable patient to perform ADL's. OT Education/Plan Problem List/Assessment Assessment: No Skilled OT Needs ID'd Discharge Recommendations Plan/Recommendations: Discharge/Goals Met Therapy Discharge Recommendati: Home & Family Treatment Plan/Plan of Care Treatment,Training & Education: Yes Patient would benefit from OT for education, treatment and training to promote independence in ADL's, mobility, safety and/or upper extremity function for ADL's. Plan of Care: OTHER (eval and d/c. ) Treatment Duration: Mar 21, 2020 Frequency: 1 time per week (eval and d/c.) Time/GCodes Start Time: 07:58 Stop Time: 08:07 Total Time Billed (hr/min): 9 Billed Treatment Time 1, EVL (9) ZOE LEYVA OTR Mar 21, 2020 08:09
[2020-03-21 08:16] VITALS: BP 169/68
[2020-03-21] MEDS: HYDROcodone/APAP 5 MG/325 MG (LORTAB) TAB PO PRN (08:16)
[2020-03-21] MEDS: polyethylene glycoL POWDER 17 GM (MIRALAX) PACK PO SCH (09:13)
[2020-03-21] MEDS: SENNA W/DOCUSATE (SENOKOT S) TABLET PO SCH (09:13)
--- NOTE | 2020-03-21 09:25 | Discharge Summary ---
Diagnosis/Chief Complaint Date of Admission Mar 20, 2020 at 18:40 Date of Discharge Discharge Date: Mar 21, 2020 Discharge Diagnosis Fall with head injury and LOC Discharge Summary Discharge Physical Examination Allergies: Coded Allergies: No Known Drug Allergies (Unverified , 02/20/20) Vitals & I&Os Vital Signs Date Time Temp Pulse Resp B/P (MAP) Pulse Ox O2 Delivery O2 Flow Rate FiO2 03/21/20 13:07 36.5 73 16 154/69 94 Room Air General Appearance: Alert, Oriented X3, Cooperative Respiratory: Clear to Auscultation Cardiovascular: Regular Rate Hospital Course Was the Problem List Reviewed?: Yes Hospital course: Pt had a short overnight hospital course after she was admitted for observation and neuro-checks every hour due to closed head injury with a scalp hematoma after she fell trying to get in her door, fell down two steps and hit her head on the concrete and had loss of consciousness. Overall she did well and no abnormalities on CT scan, labs remained stable, she was restarted on all of her home medications. PT and OT worked with her, had no concerns about her safety returning home and she was discharged in improved condition and she will maintain her appointment with me on 03/30/20 already scheduled. Labs (last 24 hrs) Laboratory Tests 03/20/20 18:09: White Blood Count 10.5, Red Blood Count 3.42L, Hemoglobin 10.0L, Hematocrit 30L, Mean Corpuscular Volume 88, Mean Corpuscular Hemoglobin 29, Mean Corpuscular Hemoglobin Concent 33, Red Cell Distribution Width 12.5, Platelet Count 275, Mean Platelet Volume 9.3, Neutrophils (%) (Auto) 80H, Lymphocytes (%) (Auto) 11L , Monocytes (%) (Auto) 7, Eosinophils (%) (Auto) 2, Basophils (%) (Auto) 0, Neutrophils # (Auto) 8.4H, Lymphocytes # (Auto) 1.1, Monocytes # (Auto) 0.8, Eosinophils # (Auto) 0.3, Basophils # (Auto) 0.0, Sodium Level 136, Potassium Level 4.5, Chloride Level 105, Carbon Dioxide Level 23, Anion Gap 8, Blood Urea Nitrogen 18, Creatinine 1.34H, Estimat Glomerular Filtration Rate 38, BUN/Creatinine Ratio 13, Glucose Level 183H, Calcium Level 9.0 03/20/20 21:03: Glucometer 233H 03/21/20 04:13: White Blood Count 6.5, Red Blood Count 3.27L, Hemoglobin 9.6L, Hematocrit 29L, Mean Corpuscular Volume 88, Mean Corpuscular Hemoglobin 29, Mean Corpuscular Hemoglobin Concent 33, Red Cell Distribution Width 12.2, Platelet Count 243, Mean Platelet Volume 9.8, Neutrophils (%) (Auto) 76H, Lymphocytes (%) (Auto) 13, Monocytes (%) (Auto) 10, Eosinophils (%) (Auto) 1, Basophils (%) (Auto) 0, Neutrophils # (Auto) 4.9, Lymphocytes # (Auto) 0.8L, Monocytes # (Auto) 0.6, Eosinophils # (Auto) 0.1, Basophils # (Auto) 0.0, Sodium Level 135, Potassium Level 4.1, Chloride Level 104, Carbon Dioxide Level 22, Anion Gap 9, Blood Urea Nitrogen 20H, Creatinine 1.25, Estimat Glomerular Filtration Rate 41, BUN/Creatinine Ratio 16, Glucose Level 205H, Calcium Level 9.1, Immature Granulocyte % (Auto) 0, Immature Granulocyte # (Auto) 0.0, Corrected Calcium 9.1, Total Bilirubin 0.5, Aspartate Amino Transf (AST/SGOT) 13, Alanine Aminotransferase (ALT/SGPT) 9, Alkaline Phosphatase 57, Total Protein 6.6, Albumin 4.0 03/21/20 11:28: Glucometer 214H Pending Labs Laboratory Tests 03/20/20 18:09: White Blood Count 10.5, Red Blood Count 3.42, Hemoglobin 10.0, Hematocrit 30, Mean Corpuscular Volume 88, Mean Corpuscular Hemoglobin 29, Mean Corpuscular Hemoglobin Concent 33, Red Cell Distribution Width 12.5, Platelet Count 275, Mean Platelet Volume 9.3, Neutrophils (%) (Auto) 80, Lymphocytes (%) (Auto) 11, Monocytes (%) (Auto) 7, Eosinophils (%) (Auto) 2, Basophils (%) (Auto) 0, Neutrophils # (Auto) 8.4, Lymphocytes # (Auto) 1.1, Monocytes # (Auto) 0.8, Eosinophils # (Auto) 0.3, Basophils # (Auto) 0.0, Sodium Level 136, Potassium Level 4.5, Chloride Level 105, Carbon Dioxide Level 23, Anion Gap 8, Blood Urea Nitrogen 18, Creatinine 1.34, Estimat Glomerular Filtration Rate 38, BUN/Creatinine Ratio 13, Glucose Level 183, Calcium Level 9.0 03/20/20 21:03: Glucometer 233 03/21/20 04:13: White Blood Count 6.5, Red Blood Count 3.27, Hemoglobin 9.6, Hematocrit 29, Mean Corpuscular Volume 88, Mean Corpuscular Hemoglobin 29, Mean Corpuscular Hemoglobin Concent 33, Red Cell Distribution Width 12.2, Platelet Count 243, Mean Platelet Volume 9.8, Neutrophils (%) (Auto) 76, Lymphocytes (%) (Auto) 13, Monocytes (%) (Auto) 10, Eosinophils (%) (Auto) 1, Basophils (%) (Auto) 0, Neutrophils # (Auto) 4.9, Lymphocytes # (Auto) 0.8, Monocytes # (Auto) 0.6, Eosinophils # (Auto) 0.1, Basophils # (Auto) 0.0, Sodium Level 135, Potassium Level 4.1, Chloride Level 104, Carbon Dioxide Level 22, Anion Gap 9, Blood Urea Nitrogen 20, Creatinine 1.25, Estimat Glomerular Filtration Rate 41, BUN/Creatinine Ratio 16, Glucose Level 205, Calcium Level 9.1, Immature Granulocyte % (Auto) 0, Immature Granulocyte # (Auto) 0.0, Corrected Calcium 9.1, Total Bilirubin 0.5, Aspartate Amino Transf (AST/SGOT) 13, Alanine Aminotra nsferase (ALT/SGPT) 9, Alkaline Phosphatase 57, Total Protein 6.6, Albumin 4.0 03/21/20 11:28: Glucometer 214 Discharge Home Medications: Active Scripts Active Meclizine HCl 25 Mg Tablet 12.5 Mg PO BID PRN Amlodipine Besylate 5 Mg Tablet 5 Mg PO DAILY Reported Refresh Optive Eye Drops (Carboxymethylcellulos/Glycerin) 15 Ml Drops 1 Drop OU PRN PRN Excedrin Extra Strength Caplet (Aspirin/Acetaminophen/Caffeine) 1 Each Tablet 1 Each PO PRN PRN Vitamin D3 (Vitamin D) 10 Mcg Tablet 400 Mcg PO DAILY Vitamin E 1,000 Unit Capsule 1,000 Unit PO DAILY Zyrtec (Cetirizine HCl) 10 Mg Tablet 10 Mg PO DAILY Losartan Potassium 25 Mg Tablet 25 Mg PO DAILY Carvedilol 25 Mg Tablet 25 Mg PO BID Rosuvastatin Calcium 5 Mg Tablet 5 Mg PO DAILY Metformin HCl 1,000 Mg Tablet 1,000 Mg PO BID Citalopram HBr (Citalopram Hydrobromide) 20 Mg Tablet 20 Mg PO DAILY Glipizide ER (Glipizide) 10 Mg Tab.er.24 10 Mg PO BID Pantoprazole Sodium 40 Mg Tablet.dr 40 Mg PO DAILY TAKES BEFORE BREAKFAST Instructions to patient/family Please see electronic discharge instructions given to patient. Diagnosis/Problems Diagnosis/Problems (1) Closed head injury Status: Acute Qualifiers: Qualified Codes: S09.90XA - Unspecified injury of head, initial encounter (2) LOC (loss of consciousness) (3) Scalp hematoma Status: Acute Qualifiers: Qualified Codes: S00.03XA - Contusion of scalp, initial encounter Clinical Quality Measures DVT/VTE Risk/Contraindication: Risk Factor Score Per Nursin RFS Level Per Nursing on Admit: 2=Moderate Contraindications-Pharm: Other *list below* Other: head injury MADI MCDANIELS DO Mar 21, 2020 09:25
--- NOTE | 2020-03-21 09:34 | Physical Therapy Evaluation ---
PT Evaluation-General Medical Diagnosis Admission Date Mar 20, 2020 at 18:40 Medical Diagnosis: syncope with head/ neck injury Onset Date: Mar 20, 2020 Therapy Diagnosis Therapy Diagnosis: debility Precautions Precautions/Isolations: Fall Prevention, Standard Precautions Referral Physician: Eleanor Reason for Referral: Evaluation/Treatment Medical History Pertinent Medical History: DM, HTN, Renal Insufficiency Current History ambulated into ER secondary to fall backward down 2 steps Reviewed History: Yes Social History Home: Single Level Current Living Status: Alone Entry Into Home: Stairs With Railing PT Steps Into Home: 3 PT Steps Inside Home: 0 Prior Prior Level of Function SCALE: Activities may be completed with or without assistive devices. 0-Jsoutmietm-ayrydhb completes the activity by him/herself with no assistance from a helper. 5-Set-up or Clean-up Assistance-helper sets up or cleans up; patient completes activity. [place] assists only prior to or following the activity. 4-Supervision or Touching Assistance-helper provides verbal cues and/or touching /steadying and/or contact guard assistance as patient completes activity. Assistance may be provided throughout the activity or intermittently. 3-Partial/Moderate Assistance-helper does LESS THAN HALF the effort. [place] lifts, holds or supports trunk or limbs, but provides less than half the effort. 2-Substantial/Maximal Assistance-helper does MORE THAN HALF the effort. [place] lifts or holds trunk or limbs and provides more than half the effort. 5-Mcuahvwzb-hoftqt does ALL the effort. Patient does none of the effort to complete the activity. Or, the assistance of 2 or more helpers is required for the patient to complete the activity. If activity was not attempted, code reason: 7-Patient Refused. 9-Not Applicable-not attempted and the patient did not perform the activity before the current illness, exacerbation or injury. 10-Not Attempted due to Environmental Limitations-(lack of equipment, weather restraints, etc.). 88-Not Attempted due to Medical Conditions or Safety Concerns. Bed Mobility: 6 Transfers (B,C,W/C): 6 Gait: 6 Stairs: 6 Indoor Mobility (Ambulation): Independent Stairs: Independent Prior Devices Use: None PT Evaluation-Current Subjective Patient reports she is going home today. Agrees to PT. Objective Patient Orientation: Normal For Age ROM/Strength ROM Lower Extremities bilateral LE WFL Strength Lower Extremities 4+/5 grossly bilateral LE Integumentary/Posture Integumentary refer to nursing notes Bowel Incontinence: No Bladder Incontinence: No Posture WFL Neuromuscular (Tone, Coordination, Reflexes) grossly intact Sensory Vision: Functional Hearing: Functional Hand Dominance: Right (ambidextrous) Sensation Right Lower Extremit: Intact Sensation Left Lower Extremity: Intact Transfers Roll Left to Right (QC): 6 Sit to Lying (QC): 6 Lying to Sitting/Side of Bed(Q: 6 Sit to Stand (QC): 6 Gait Does the Patient Walk?: Yes Mode of Locomotion: Walk Anticipated Mode of Locomotion: Walk Walk 10 feet (QC): 6 Walk 50 ft with 2 Turns(QC): 6 Walk 150 ft (QC): 6 Distance: >500' Gait Assistive Device: None Comments/Gait Description safe and functional with no deviation Wheelchair Training Does the Pt Use a Wheelchair?: No Stairs #of Steps: 4 1 Step (curb) (QC): 6 4 Steps (QC): 6 Balance Sitting Static: Normal Sitting Dynamic: Normal Standing Static: Normal Standing Dynamic: Normal Assessment/Needs 79 y.o. female, is currently at [facility] with all gross motor skills safely and does not require skilled therapy intervention. Rehab Potential: Good PT Plan Treatment/Plan Treatment Plan: Discontinue PT, goals met Treatment Duration: Mar 21, 2020 Frequency: 1 time per week Estimated Hrs Per Day: .25 hour per day Patient and/or Family Agrees t: Yes Time/GCodes Time In: 851 Time Out: 902 Total Billed Treatment Time: 11 Total Billed Treatment 1 visit [facility] 11 min TARSHA HENRIQUEZ PT Mar 21, 2020 09:34
--- NOTE | 2020-03-21 10:05 | NUR ---
CM/SS visited with the patient for discharge planning. Plan: Patient will return home at time of discharge. Patient's son is picking her up. No needs. Home: The patient lives alone. She states that she has 2 stairs at the front of the house. According to the patient's nurse, PT worked with patient and she did well with stairs. Equipment: None. Home Health Caregivers: None. Supports: Patient reports that she has a good support system with her son/family and friends that she could ask for help if needed. No further needs at this time.
[2020-03-21 12:28] VITALS: BP 154/69
[2020-03-21 13:07] VITALS: BP 154/69
--- NOTE | 2020-03-23 13:31 | Consultation-Cardiology ---
HPI-Cardiology Cardiology Consultation: Date of Consultation 03/23/20 Time Seen by a Provider: 13:05 Date of Admission 03-23-2020 Attending Physician Sindhu Mcdaniels DO Admitting Physician Sindhu Mcdaniels DO Consulting Physician Theron Ames MD HPI: Chief Complaint: Near syncope Ms. Liao is a 79 yr old female admitted to [facility] from the ED. She reports she has been having syncopal, near syncopal episodes for the last month. She reports she was seen in the ED on Friday for a fall. Review of the records show she was walking up the stairs at her house became dizzy and fell backwards s triking her head. She reports she did lose consciousness at that time. The episode today she had finished eating breakfast and began to feel dizzy and weak. She reports she has Meclizine at home that she takes for the dizziness. She got up and was going to the other room to get her Meclizine when she fell backwards on the couch. She reports the sensation last for approx 20-30 minutes. She reports dizziness when changing positions. She denies any c/o CP, palpitations. She denies any LE swelling. She reports she has been wearing a heart monitor, but took it off for an MRI today, but she reports the battery is not working on the monitor. No c/o LE swelling. No c/o n/v/d. No c/o fever or chills. Review of Systems-Cardiology Review of Systems Constitutional: No chills, No fever, No weight loss, No weight gain Eyes: No vision change Ears/Nose/Throat: No epistaxis, No nasal drainage, No recent hearing loss Respiratory: As described under HPI Cardiovascular: As described under HPI Gastrointestinal: No constipation, No diarrhea, No nausea, No vomiting Genitourinary: No dysuria, No hematuria Musculoskeletal: no symptoms reported Skin: No rash on exposed areas, No ulcerations on exposed areas Psychiatric/Neurological: syncope; No anxiety, No depression, No seizure, No fo eric weakness Hematologic: No bleeding abnormalities PAJ-Dyzbju-Vdyygt Hx Patient Social History Marrital Status: single Employed/Student: retired Alcohol Use: Denies Use Recreational Drug Use: No Smoking Status: Former Smoker Recent Foreign Travel: No Recent Infectious Disease Expo: No Immunizations Up To Date Date of Pneumonia Vaccine: Jan 21, 2018 Past Medical History PMH As described under Assessment. Family Medical History Family Medical History: She reports her father and mother had HTN and stroke Family History: Completed stroke 19 FATHER 19 MOTHER Diabetes mellitus SON Hypertension 19 FATHER 19 MOTHER Allergies and Home Medications Allergies Coded Allergies: No Known Drug Allergies (Unverified , 02/20/20) Home Medications Amlodipine Besylate 5 Mg Tablet, 5 MG PO DAILY Prescribed by: SINDHU MCDANIELS on 02/21/20 1522 Aspirin/Acetaminophen/Caffeine 1 Each Tablet, 1 EACH PO PRN PRN for HEADACHE, (Reported) Carboxymethylcellulos/Glycerin 15 Ml Drops, 1 DROP OU PRN PRN for ALLERGIES, (Reported) Carvedilol 25 Mg Tablet, 25 MG PO BID, (Reported) Cetirizine HCl 10 Mg Tablet, 10 MG PO DAILY, (Reported) Citalopram Hydrobromide 20 Mg Tablet, 20 MG PO DAILY, (Reported) Glipizide 10 Mg Tab.er.24, 10 MG PO BID, (Reported) Losartan Potassium 25 Mg Tablet, 25 MG PO DAILY, (Reported) Meclizine HCl 25 Mg Tablet, 12.5 MG PO BID PRN for DIZZINESS Prescribed by: SINDHU MCDANIELS on 02/21/20 1522 Metformin HCl 1,000 Mg Tablet, 1,000 MG PO BID, (Reported) Pantoprazole Sodium 40 Mg Tablet.dr, 40 MG PO DAILY, (Reported) TAKES BEFORE BREAKFAST Rosuvastatin Calcium 5 Mg Tablet, 5 MG PO DAILY, (Reported) Vitamin D 10 Mcg Tablet, 400 MCG PO DAILY, (Reported) Vitamin E 1,000 Unit Capsule, 1,000 UNIT PO DAILY, (Reported) Physical Exam-Cardiology Physical Exam Vital Signs/I&O Capillary Refill : Less Than 3 Seconds Constitutional: AAO x 3, well-developed, well-nourished HEENT: PERRL, hearing is well preserved, oral hygience is good Neck: No carotid bruit; carotid pulses are 2 + bilaterally Respiratory: No accessory muscle use, No respiratory distress; chest expansion is symmetric, chest is bilaterally symmetric, lungs clear to auscultation Cardiovascular: regular rate-rhythm; No JVD; S1 and S2 Gastrointestinal: No tender; soft, round, audible bowel sounds Extremities: no lower extremity edema bilateral Neurologic/Psychiatric: grossly intact (moves all extremities) Skin: No rash on exposed areas, No ulcerations on exposed areas; other (bruising to LACW, left side of neck and left upper back) Clinical Quality Measures DVT/VTE Risk/Contraindication: Risk Factor Score Per Nursin RFS Level Per Nursing on Admit: 2=Moderate Contraindications-Pharm: Other *list below* Other: head injury ISABELLA FARIAS Mar 23, 2020 13:31
== END 2020-03-21 13:07 | disposition home or self-care (01) ==
LOC: EDUNIT# 17:40 → ER 17:41 → 4TH 18:40
PROVIDERS: ADMIT Internal Medicine; ATTEND Internal Medicine
DX: S06.9X9A Unspecified intracranial injury with loss of consciousness of unspecified duration, initial encounter (principal); S00.03XA Contusion of scalp, initial encounter; F32.9 Major depressive disorder, single episode, unspecified; E78.00 Pure hypercholesterolemia, unspecified; I12.9 Hypertensive chronic kidney disease with stage 1 through stage 4 chronic kidney disease, or unspecified chronic kidney disease; E11.22 Type 2 diabetes mellitus with diabetic chronic kidney disease; N18.9 Chronic kidney disease, unspecified; Z79.84 Long term (current) use of oral hypoglycemic drugs; Z79.82 Long term (current) use of aspirin; Z79.899 Other long term (current) drug therapy; Z87.891 Personal history of nicotine dependence; W10.8XXA Fall (on) (from) other stairs and steps, initial encounter
CPT/HCPCS: 70450; 72125; 80048; 80053; 82962 ×2; 85025 ×2; 97162; 97165; 99284; G0378; 36415

== ENCOUNTER 2020-03-23 10:53 | Inpatient (IN) | payer MEDICARE ==
[~2020-03-23] VITALS: Ht 154.9 cm; Wt 68.5 kg
[2020-03-23 11:30] VITALS: BP 124/59
--- NOTE | 2020-03-23 11:30 | NUR ---
YADI REDDING admitted to room 224-1, with an admitting diagnosis of CLOSED HEAD INJURY WITH LOC , on 03/23/20 from ED via WHEELCHAIR, accompanied by STAFF. YADI REDDING introduced to surroundings, call light, bed controls, phone, TV, temperature control, lights, meal times, smoking policy, visitor policy, side rail policy, bathrooms and showers. Patient Rights given to patient in the handbook.YADI REDDING verbalizes understanding that [facility] is not responsible for the loss or damage to any personal effects or valuables that are kept in the patients posession during their hospitalization. The following Patient Care Plans were discussed with the PT: Discharge Planning AND FALLS. YADI REDDING verbalizes understanding of Interdisciplinary Patient Education. Patient received Patient Rights Booklet, which includes Privacy Act Statement and Data Collection Information Summary. IV INTACT LEFT AC. DENIES PAIN. ADMITS TO MILD DIZZINESS.
--- NOTE | 2020-03-23 11:37 | PM&R Post Admission Assessment ---
PM&R HP Date of Visit: Mar 23, 2020 Time of Visit: 11:45 History of Present Illness CC: Recurrent falls resulting in closed head injury with LOC HPI: This is a 79yoWF clinic patient of mine with h/o DM, CRI, HTN, HLP who presents to IRF as a direct admit from ER after waking up today with severe dizziness and increased risk for falls on top of the several falls she has had recently including on Friday which required hospital stay with closed head injury with LOC for several minutes. She has received 500cc IVF in ER for elevated creat of 1.8. Home meds will be initiated and patient will require Cardiology consultation in the meantime for w/u. PLOF was independent without the use of assistive devices. HPI: Patient is a 79yo female who presented to the ED due to a fall. She has a history of falls and she recently spent a day in the hospital for a fall. During her recent visit cardiology was consulted and an echo and stress test were performed, which were normal. She then had a 30 day loop recorder placed. She has no history of CAD or stroke. She also has a history of dizziness and vertigo. While in the ED she had a CT done, which revealed no acute findings. When she had another episode of dizziness in the ED, she was given meclizine and 500 of saline, which improved the dizziness. PMH: Cardiac: High Cholesterol, Hypertension Genitourinary: Renal Failure Musculoskeletal: Degenerate Disk Disease Endocrine: Diabetes, Non-Insulin dep Psychosocial: Depression History of Blood Disorders: No SH: Former smoker, quit 1960 Retired Allergies: NKMA Home Medications Amlodipine Besylate (Amlodipine Besylate), 5 MG PO DAILY Carvedilol (Carvedilol), 25 MG PO BID, (Reported) Cetirizine HCl (Zyrtec), 10 MG PO DAILY, (Reported) Citalopram Hydrobromide (Citalopram HBr), 20 MG PO DAILY, (Reported) Glipizide (Glipizide ER), 10 MG PO BID, (Reported) Losartan Potassium (Losartan Potassium), 25 MG PO DAILY, (Reported) Metformin HCl (Metformin HCl), 1,000 MG PO BID, (Reported) Pantoprazole Sodium (Pantoprazole Sodium), 40 MG PO DAILY, (Reported) Rosuvastatin Calcium (Rosuvastatin Calcium), 5 MG PO DAILY, (Reported) Vitamin D (Vitamin D3), 400 MCG PO DAILY, (Reported) Vitamin E (Vitamin E), 1,000 UNIT PO DAILY, (Reported) Review of Systems Constitutional: No chills, No diaphoresis Eyes: Denies Blindness, Denies Blurred Vision Ears, Nose, Mouth, Throat: denies ear pain, denies ear discharge Respiratory: No cough, No short of breath Cardiovascular: No chest pain, No edema, No Hx of Intervention, No palpitations Gastrointestinal: No abdominal pain, No constipation, No diarrhea, No nausea Genitourinary: No discharge, No dysuria Musculoskeletal: No back pain, No joint pain Physical Exam: General Appearance: WD/WN, no apparent distress HEENT: PERRL/EOMI, normal ENT inspection Neck: non-tender, full range of motion, supple, normal inspection Respiratory: lungs clear, normal breath sounds, no respiratory distress, no accessory muscle use Cardiovascular: normal peripheral pulses, regular rate, rhythm Peripheral Pulses: 2+ Radial Pulses (R), 2+ Radial Pulses (L) Gastrointestinal: normal bowel sounds, non tender, soft Neurologic/Psychiatric: space officer II-XII nml as tested, no motor/sensory deficits, alert, normal mood/affect, oriented x 3 Motor/Sensory: no motor deficit, no sensory deficit Skin: normal color, warm/dry Assessment: 1. BPPV 2. Closed head injury w/o LOC 3. Recurrent falls 4. Hypertension 5. Hyperlipidemia 6. NIDDM 7. Degenerative disk disease 8. Renal insufficiency Plan: Due to this patient's history of dizziness and recurrent falls, she will be admitted to the IRF to work with PT and OT. Prior to presentation she lived independently at home and could care for herself. She was able to transfer from sitting to standing, to and from the toilet, transfer to a car, from lying to sitting, and could walk on uneven surfaces. During her stay her goals will be to improve strength and balance in order to return to ambulating safely with assistive device to safely return home and care for herself independently. Cardiology was consulted due to her syncopal and near-syncopal episodes. ISRAEL GRANDE,MED STUDENT Past Uzogouj-Xepotl-Zddmmp Hx Past Med/Social Hx: Reviewed Nursing Past Med/Soc Hx, Reviewed and Corrections made Patient Social History Marrital Status: (2004) Employed/Student: retired Smoking Status: Former Smoker (quit 1960) Former Smoker, Quit: Feb 21, 1961 Recent Hopitalizations: Yes (01/2020 FOR A FALL) Immunizations Up To Date Date of Pneumonia Vaccine: Jan 21, 2018 Seasonal Allergies Seasonal Allergies: Yes Past Medical History Cardiac: High Cholesterol, Hypertension Genitourinary: Renal Failure Musculoskeletal: Degenerate Disk Disease Endocrine: Diabetes, Non-Insulin dep Psychosocial: Depression History of Blood Disorders: No Adverse Reaction to Blood Riley: No Occupation: retired PM&R Allergy/Meds/Data Review Allergies Coded Allergies: No Known Drug Allergies (Unverified , 02/20/20) Home Medications Scheduled Amlodipine Besylate (Amlodipine Besylate), 5 MG PO DAILY Carvedilol (Carvedilol), 25 MG PO BID, (Reported) Cetirizine HCl (Zyrtec), 10 MG PO DAILY, (Reported) Citalopram Hydrobromide (Citalopram HBr), 20 MG PO DAILY, (Reported) Glipizide (Glipizide ER), 10 MG PO BID, (Reported) Losartan Potassium (Losartan Potassium), 25 MG PO DAILY, (Reported) Metformin HCl (Metformin HCl), 1,000 MG PO BID, (Reported) Pantoprazole Sodium (Pantoprazole Sodium), 40 MG PO DAILY, (Reported) Rosuvastatin Calcium (Rosuvastatin Calcium), 5 MG PO DAILY, (Reported) Vitamin D (Vitamin D3), 10 MCG PO DAILY, (Reported) Vitamin E (Vitamin E), 1,000 UNIT PO DAILY, (Reported) Scheduled PRN Aspirin/Acetaminophen/Caffeine (Excedrin Extra Strength Caplet), 1 EACH PO PRN PRN for HEADACHE, (Reported) Carboxymethylcellulos/Glycerin (Refresh Optive Eye Drops), 1 DROP OU PRN PRN for ALLERGIES, (Reported) Meclizine HCl (Meclizine HCl), 12.5 MG PO BID PRN for DIZZINESS Current Medications Current Medications Reviewed Review of Systems Constitutional: see HPI, dizziness, malaise, weakness EENTM: no symptoms reported Respiratory: no symptoms reported Cardiovascular: no symptoms reported Gastrointestinal: no symptoms reported Genitourinary: no symptoms reported Musculoskeletal: no symptoms reported Skin: no symptoms reported Psychiatric/Neurological: Anxiety, Depressed All Other Systems Reviewed Negative Unless Noted: Yes Physical Exam Physical Exam Vital Signs Capillary Refill : Height, Weight, BMI Height: '" Weight: lbs. oz. kg; 29.00 BMI Method: General Appearance: No Apparent Distress, WD/WN, Chronically ill Eyes: Bilateral Eye Normal Inspection, Bilateral Eye PERRL HEENT: PERRL/EOMI, Normal ENT Inspection, Pharynx Normal Neck: Full Range of Motion, Normal Inspection, Non Tender, Supple, Carotid Bruit Respiratory: Chest Non Tender, Lungs Clear, Normal Breath Sounds, No Accessory Muscle Use, No Respiratory Distress Cardiovascular: Regular Rate, Rhythm, No Edema, No Gallop, No JVD, No Murmur, Normal Peripheral Pulses Gastrointestinal: Normal Bowel Sounds, No Organomegaly, No Pulsatile Mass, Non Tender, Soft Back: Normal Inspection, No CVA Tenderness, No Vertebral Tenderness Extremity: Normal Capillary Refill, Normal Inspection, Normal Range of Motion, Non Tender, No Calf Tenderness, No Pedal Edema Neurologic/Psychiatric: Alert, Oriented x3, No Motor/Sensory Deficits, Normal Mood/Affect, space officer II-XII Norm as Tested, Abnormal Gait, Motor Weakness (generalized legs) Skin: Normal Color, Warm/Dry Lymphatic: No Adenopathy PM&R Medical Assessment & Plan REHAB/MEDICAL ASSESSMENT AND PLAN: REHAB IMPAIRMENT GROUP: CHI with LOC ETIOLOGIC DIAGNOSIS: CHI with LOC The comorbidities that impact the patients function and/or functional outcome by: renal insufficiency, lives alone, recent CHI with LOC will increase risk of balance dysfunction REHAB PLAN: The patient is being admitted to our comprehensive inpatient rehabilitation facility and can tolerate the intensity of service consisting of at least: 180 minutes of therapy a day, 5 out of 7 days a week Rehab treatment will consist of: PT OT will focus on regaining good balance and teach fall prevention with use of assistive devices and will help patient work through dizziness The patient/family has a good understanding of our discharge process and will benefit from an interdisciplinary inpatient rehabilitation program. The patient has potential to make improvement and is in need of at least two of the following multidisciplinary therapies including but not limited to physical, occupational, speech, and prosthetics and orthotics. Additionally the patient will need services from respiratory, nutritional services, wound care, psychology, etc. (Customize this to each patient). Given the patients complex condition and risk of further medical complications, rehabilitation services cannot be safely or effectively provided at a lower level of care such as a [facility]. BARRIERS TO DISCHARGE: Lives alone with 4 falls of recent time frame ESTIMATED LOS: 7 days DISPOSITION: Home RELEVANT CHANGES SINCE PREADMISSION SCREENING: I have compared the patients medical and functional status at the time of the preadmission screening and there are: no changes PROGNOSIS: Good REHABILITATION GOALS: 1.PT OT will focus on regaining good balance and teach fall prevention with use of assistive devices and will help patient work through dizziness All the above goals were reviewed with the patient and he/she is in agreement. By signing this document, I acknowledge that I have personally performed a full physical examination on this patient within 24 hours of admission to this inpatient rehabilitation facility and have determined the patient to be able to tolerate the above course of treatment at an intensive level for a reasonable period of time. I will be completing a detailed individualized Plan of Care for this patient by day #4 of the patients stay based upon the Preadmission Screen, the Post-Admission Evaluation, and the therapy evaluations. Admission Dx/Comorbidities: (1) LOC (loss of consciousness) ICD Codes: R40.20 - Unspecified coma (2) Closed head injury Status: Acute ICD Codes: S09.90XA - Unspecified injury of head, initial encounter (3) Diabetes mellitus ICD Codes: E11.9 - Type 2 diabetes mellitus without complications (4) Renal insufficiency ICD Codes: N28.9 - Disorder of kidney and ureter, unspecified (5) Hyperlipemia ICD Codes: E78.5 - Hyperlipidemia, unspecified (6) Hypertension ICD Codes: I10 - Essential (primary) hypertension (7) Scalp hematoma Status: Acute ICD Codes: S00.03XA - Contusion of scalp, initial encounter (8) Arm paresthesia, right Status: Acute ICD Codes: R20.2 - Paresthesia of skin (9) Vertigo Status: Acute ICD Codes: R42 - Dizziness and giddiness (10) Concussion Status: Acute ICD Codes: S06.0X9A - Concussion with loss of consciousness of unspecified duration, initial encounter (11) Syncope and collapse Status: Acute ICD Codes: R55 - Syncope and collapse Assessment/Plan Assessment and Plan Assess & Plan/Chief Complaint Assessment: Closed head injury with LOC now with recurrent falls Dizziness CRI DM HTN HLP Plan: MRI IRF protocol Home meds Fall risk prevention MADI MCDANIELS DO Mar 23, 2020 11:37
[2020-03-23] MEDS ORDERED: diphenhydrAMINE 25 MG TAB (BENADRYL) PO PRN (11:45)
[2020-03-23] MEDS ORDERED: DOCUSATE SODIUM 100 MG (COLACE) CAP PO PRN (11:45)
[2020-03-23] MEDS ORDERED: LACTULOSE SYRUP 10GM/15ML (ENULOSE) 30ML UDC PO PRN (11:45)
[2020-03-23] MEDS ORDERED: MELATONIN 3 MG TABLET PO PRN (11:45)
[2020-03-23] MEDS ORDERED: ALPRAZolam 0.25 MG (XANAX) TAB PO PRN (11:45)
[2020-03-23] MEDS ORDERED: FLEET ENEMA ADULT 1 EA BTL PR PRN (11:45)
[2020-03-23] MEDS ORDERED: ONDANSETRON 4 MG (ZOFRAN) ORAL DISSOLVE TAB PO PRN (11:45)
[2020-03-23] MEDS ORDERED: BISACODYL 10 MG SUPP (DULCOLAX) PR PRN (11:45)
[2020-03-23] MEDS ORDERED: CALCIUM CARBONATE 500 MG (TUMS) TAB.CHEW PO PRN (11:45)
[2020-03-23] MEDS ORDERED: guaiFENesin/CODEINE (ROBITUSSIN AC) 10ML UDC PO PRN (11:45)
[2020-03-23] MEDS ORDERED: LOPERAMIDE 2 MG (IMODIUM) TABLET PO PRN (11:45)
--- NOTE | 2020-03-23 12:13 | Occupational Therapy Eval ---
OT Evaluation-General/PLF Medical Diagnosis Admission Date Mar 23, 2020 at 11:39 Medical Diagnosis: closed head injury with LOC Onset Date: Mar 20, 2020 Therapy Diagnosis Therapy Diagnosis: decreased ADLs/functional mobility, weakness Referral Physician: Eleanor Medical History Pertinent Medical History: DM, HTN, Renal Insufficiency Additional Medical History Cardiac: High Cholesterol, Hypertension Genitourinary: Renal Failure Musculoskeletal: Degenerate Disk Disease Endocrine: Diabetes, Non-Insulin dep Psychosocial: Depression Current History ER due to dizziness, fall on couch this AM. Recent falls Reviewed History: Yes Social History Home: Single Level Current Living Status: Alone Entry Into Home: Stairs With Railing Steps Into Home: 2 ADL-Prior Level of Function SCALE: Activities may be completed with or without assistive devices. 7-Mjegqwgtez-lenkruz completes the activity by him/herself with no assistance from a helper. 5-Set-up or Clean-up Assistance-helper sets up or cleans up; patient completes activity. [place] assists only prior to or following the activity. 4-Supervision or Touching Assistance-helper provides verbal cues and/or touching/steadying and/or contact guard assistance as patient completes activity. Assistance may be provided throughout the activity or intermittently. 3-Partial/Moderate Assistance-helper does LESS THAN HALF the effort. [place] lifts, holds or supports trunk or limbs, but provides less than half the effort. 2-Substantial/Maximal Assistance-helper does MORE THAN HALF the effort. [place] lifts or holds trunk or limbs and provides more than half the effort. 0-Wepwhzwym-xxxoql does ALL the effort. Patient does none of the effort to complete the activity. Or, the assistance of 2 or more helpers is required for the patient to complete the activity. If activity was not attempted, code reason: 7-Patient Refused. 9-Not Applicable-not attempted and the patient did not perform the activity before the current illness, exacerbation or injury. 10-Not Attempted due to Environmental Limitations-(lack of equipment, weather restraints, etc.). 88-Not Attempted due to Medical Conditions or Safety Concerns. ADL PLOF Comments Pt reports independent being independent with all ADLs and functional mobility at PLOF, no AD/AE. Pt has a walk in shower with a built in bench. Self Care: Independent Functional Cognition: Independent DME/Equipment: Bath Bench, Shower Drive Self: Yes OT Current Status Subjective Pt seated in chair following PT, agreeable to OT evaluation. Pt reports slight pain in L shoulder with ROM Mental Status/Objective Patient Orientation: Person, Place, Time, Situation Current Glasses/Contacts: Yes Hearing Aids: No Dentures/Partials: No Hand Dominance: Right Upper Extremity ROM WFL RUE, LUE shoulder flexion to appox 90 degrees, increased pain. Pt indicates it has been sore since she feel a few days ago. Upper Extremity Coordination WFL Upper Extremity Sensation pt denies tingling/numbness at this time. Pt did have tingling in R fingertips this AM Upper Extremity Strength grossly 3+/5 MMT RUE, 3/5 LUE (increased pain) ADL-Treatment Eating (QC): 7 Oral Hygiene (QC): 7 Shower/Bathe Self (QC): 7 Upper Body Dressing (QC): 7 Lower Body Dressing (QC): 7 On/Off Footwear (QC): 7 Toileting Hygiene (QC): 7 Other Treatments Pt seated in chair, OT educate pt on purpose and benefits of OT, she verbalized understanding. Pt then provided information about PLOF and home set up, then participated in UE screen. OT educated pt on OT POC while admitted, including goals of returning to independent LOF to safely return home, pt verbalized understanding and agreement. Post OT tx, pt seated in recliner, call light in reach and all needs met. Education OT Patient Education: Correct positioning, Progress toward Goal/Update tx plan, Purpose of tx/functional activities, Rehab process Teaching Recipient: Patient Teaching Methods: Discussion Response to Teaching: Verbalize Understanding OT Short Term Goals Short Term Goals Time Frame: Mar 30, 2020 Shower/bathe self: 4 Upper body dressin Lower body dressin Putting on/taking off footwear: 4 OT Prison Goals Prison Goals Time Frame: Apr 14, 2020 Eating (QC): 6 Oral Hygiene (QC): 6 Toileting Hygiene (QC): 6 Shower/Bathe Self (QC): 6 Upper Body Dressing (QC): 6 Lower Body Dressing (QC): 6 On/Off Footwear (QC): 6 Additional Goals: 1-Demonstrate ADL Tasks, 2-Verbalize Understanding, 3- ImproveStrength/Alicia 1=Demonstrate adherence to instructed precautions during ADL tasks. 2=Patient will verbalize/demonstrate understanding of assistive devices/modifications for ADL. 3=Patient will improve strength/tolerance for activity to enable patient to perform ADL's. OT Education/Plan Problem List/Assessment Assessment: Decreased Activ Tolerance, Decreased UE Strength, Impaired I ADL's, Impaired Self-Care Skills Discharge Recommendations Plan/Recommendations: Continue POC Treatment Plan/Plan of Care Patient would benefit from OT for education, treatment and training to promote independence in ADL's, mobility, safety and/or upper extremity function for ADL's. Plan of Care: ADL Retraining, Functional Mobility, Group Exercise/Act as Ind, UE Funct Exercise/Act, UE Neuromus Re-Ed/Coord Treatment Duration: Apr 14, 2020 Frequency: At least 5 of 7 days/Wk (IRF) Estimated Hrs Per Day: 1.5 hours per day Agreement: Yes Rehab Potential: Good Time/GCodes Start Time: 12:00 Stop Time: 12:10 Total Time Billed (hr/min): 10 Billed Treatment Time 1ANAID ADDISON OT Mar 23, 2020 12:13
[2020-03-23] MEDS ORDERED: FLU QUAD HIGH DOSE 240 MCG/0.7 ML 2020-21 (FLUZONE) IM ONE (12:15)
--- NOTE | 2020-03-23 12:24 | Occupational Ther Daily Note ---
OT Current Status-Daily Note Subjective Pt alert, sitting in recliner when OT entered. Pt agreed to therapy. No c/o pain reported. Mental Status/Objective Patient Orientation: Person, Place, Time, Situation Attachments: IV, Telemetry ADL-Treatment OT services were explained to pt. Pt verbalized understanding. Pt agreed to taking shower. Lunch was served when OT was in room. Pt was able to complete eating by self. Pt was then taken for MRI, will continue when she arrives back. ([id number]) ([id number]) Pt back from MRI. Sit-stand from w/c to FWW, CGA. Verbal cues to push up from w/c and maneuver throughout the room. Pt stated that she is unable to see up close without her glasses. Pt ambulated to recliner using FWW, CGA. Pt finishing up meal independently. Hot pack applied to L shldr due to pain and ROM limitations. Pt sit-stand from recliner to FWW, CGA and verbal cue to push off from armrest. Pt stated she needed to use the restroom. Pt ambulated to bathroom using FWW, CGA. Transferred to toilet with CGA and completed toilet hygiene, close SBA. While seated at toilet, pt doffed underwear. Pt ambulated to shower bench using FWW, CGA. Pt was able to doff upper body dressing by self. Pt required shower bench, hand held shower head, grabbars, and SBA for safety to complete shower. Pt was able to cleanse B UE, chest, abdomen, upper/lower legs, ashish area, and buttocks (SBA when standing to cleanse). After shower, pt SPT from shower bench to chair, with CGA. After set up, pt able to thread B feet into underwear. While standing, pt able to hike underwear over hips, CGA. After set up, pt able to don nightgown by self. After set up, pt able to don socks. Pt sit-stand from chair to FWW, CGA and ambulated to sink. Pt completed oral hygiene while standing with CGA. Pt then ambulated back to recliner using FWW, CGA. Therapy Code Descriptions/Definitions Functional [place] Measure: 0=Not Assessed/NA 4=Minimal Assistance 1=Total Assistance 5=Supervision or Setup 2=Maximal Assistance 6=Modified [place] 3=Moderate Assistance 7=Complete IndependenceSCALE: Activities may be completed with or without assistive devices. 3-Ubqrgipxvn-tstnggo completes the activity by him/herself with no assistance from a helper. 5-Set-up or Clean-up Assistance-helper sets up or cleans up; patient completes activity. [place] assists only prior to or following the activity. 4-Supervision or Touching Assistance-helper provides verbal cues and/or touching/steadying and/or contact guard assistance as patient completes activity. Assistance may be provided throughout the activity or intermittently. 3-Partial/Moderate Assistance-helper does LESS THAN HALF the effort. [place] lifts, holds or supports trunk or limbs, but provides less than half the effort. 2-Substantial/Maximal Assistance-helper does MORE THAN HALF the effort. [place] l ifts or holds trunk or limbs and provides more than half the effort. 0-Vtgsrxtou-ggrmwa does ALL the effort. Patient does none of the effort to complete the activity. Or, the assistance of 2 or more helpers is required for the patient to complete the activity. If activity was not attempted, code reason: 7-Patient Refused. 9-Not Applicable-not attempted and the patient did not perform the activity before the current illness, exacerbation or injury. 10-Not Attempted due to Environmental Limitations-(lack of equipment, weather restraints, etc.). 88-Not Attempted due to Medical Conditions or Safety Concerns. Eating (QC): 6 Oral Hygiene (QC): 4 Bathing Location: L Arm, R Arm, L Upper Leg, R Upper Leg, L Lower Leg (including foot), R Lower Leg (including foot), Chest, Abdomen, Buttocks (SBA), Perineal Area Shower/Bathe Self (QC): 4 (SBA for safety) Upper Body Dressing (QC): 5 Lower Body Dressing (QC): 4 On/Off Footwear: 5 Toileting Hygiene (QC): 4 Toilet Transfer (QC): 4 Other Treatment Co-treat with PT( [id number] ), requires skills of 2 clinicians for instruction and modifications during mobility, ADLs and energy conservation due to decreased balance during functional tasks, need of energy conservation techniques during functional tasks and weakness. PT focusing on transfers, mobility and B LE strengthening. OT focusing on functional tasks during mobility, transfers and B UE strengthening. Pt educated on description of ARU, acknowledge understanding verbally. After OT session, pt left in care of PT. Education OT Patient Education: Rehab process Teaching Recipient: Patient Teaching Methods: Discussion Response to Teaching: Verbalize Understanding OT Short Term Goals Short Term Goals Time Frame: Mar 30, 2020 Shower/bathe self: 4 Upper body dressin Lower body dressin Putting on/taking off footwear: 4 OT Concrete Spreader Goals Half-Way Goals Time Frame: Apr 14, 2020 Eating (QC): 6 Oral Hygiene (QC): 6 Toileting Hygiene (QC): 6 Shower/Bathe Self (QC): 6 Upper Body Dressing (QC): 6 Lower Body Dressing (QC): 6 On/Off Footwear (QC): 6 Additional Goals: 1-Demonstrate ADL Tasks, 2-Verbalize Understanding, 3-I mproveStrength/Alicia 1=Demonstrate adherence to instructed precautions during ADL tasks. 2=Patient will verbalize/demonstrate understanding of assistive devices/modifications for ADL. 3=Patient will improve strength/tolerance for activity to enable patient to perform ADL's. OT Education/Plan Problem List/Assessment Assessment: Decreased Activ Tolerance, Decreased Safety Aware, Decreased UE Strength, Impaired Coordination, Impaired Funct Balance, Impaired Self-Care Skills, Restricted Funct UE ROM (L shldr pain) Discharge Recommendations Plan/Recommendations: Continue POC Treatment Plan/Plan of Care Patient would benefit from OT for education, treatment and training to promote independence in ADL's, mobility, safety and/or upper extremity function for ADL's. Plan of Care: ADL Retraining, Functional Mobility, Group Exercise/Act as Ind, UE Funct Exercise/Act, UE Neuromus Re-Ed/Coord Treatment Duration: Apr 14, 2020 Frequency: At least 5 of 7 days/Wk (IRF) Estimated Hrs Per Day: 1.5 hours per day Agreement: Yes Rehab Potential: Good Time/GCodes Start Time: 12:10 ([id number]) Stop Time: 14:00 ([id number]) Total Time Billed (hr/min): 80 Billed Treatment Time 1 visit-ADL 1 (10 min [id number]), 1 visit- ADL 5 (70 mins [id number]) CO-Treat PT 30 mins ([id number]) Individual 40 mins ([id number]) GERI OROZCO Mar 23, 2020 12:24
[2020-03-23 12:30] VITALS: BP 124/59
[2020-03-23] MEDS ORDERED: ENOXAPARIN 30 MG/0.3 ML (LOVENOX) SYR SC SCH (13:00)
[2020-03-23] MEDS ORDERED: ENOXAPARIN 40 MG/0.4 ML (LOVENOX) SYR SC SCH (13:00)
[2020-03-23] MEDS ORDERED: MECLIZINE 25 MG (ANTIVERT) TAB PO PRN (13:15)
--- NOTE | 2020-03-23 13:16 | Diagnostic Imaging Report ---
PROCEDURE: MR imaging of the brain without contrast. TECHNIQUE: Multiplanar, multisequence MR imaging of the brain was performed without contrast. INDICATION: Syncopal episode. Dizziness and right-sided weakness. Fell 3 days ago and hit back of head. COMPARISON: CT head on 03/23/2020, 03/20/2020. Findings: A small focus of restricted diffusion is seen in the anterior medial aspect of the right frontal lobe adjacent to the interhemispheric fissure. More faint restricted diffusion is seen in the left basal ganglia and left thalamus. No associated mass effect or hemorrhage is seen. Focal and confluent areas of T2 hyperintense signal are seen in the periventricular and subcortical white matter. The ventricles and cortical sulci are mildly prominent. The basilar cisterns are symmetric and unremarkable. The sellar and suprasellar regions have a normal appearance. The brainstem and posterior fossa are unremarkable. The paranasal sinuses and mastoid air cells demonstrate normal signal characteristics. Bilateral lens implants are noted. The globes and orbits are symmetric and unremarkable. Prominent scalp hematoma is seen overlying the left parietal region. The calvarium is intact. IMPRESSION: 1. Small punctate focus of restricted diffusion in the anterior medial aspect of the right frontal lobe with more faint areas of restricted diffusion in the left basal ganglia and left thalamus, which may represent foci of acute/subacute ischemia. No associated mass effect or hemorrhage is seen. Given the multiplicity this may be embolic in etiology. Recommend further evaluation with carotid ultrasound and echocardiogram if indicated and correlation with patient history. 2. Prominent scalp hematoma overlying the left parietal region. 3. Mild parenchymal volume loss with focal and confluent areas of chronic microvascular disease in the periventricular and subcortical white matter. Dictated by: Dictated on workstation # [id number]
--- NOTE | 2020-03-23 13:40 | Consultation-Cardiology ---
HPI-Cardiology Cardiology Consultation: Date of Consultation 03/23/20 Time Seen by a Provider: 13:10 Date of Admission 03-23-2020 Attending Physician Sindhu Mcdaniels DO Admitting Physician Sindhu Mcdaniels DO Consulting Physician Theron Ames MD HPI: Chief Complaint: Near syncope Ms. Redding is a 79 yr old female admitted to 224 from the ED. She reports she has been having syncopal, near syncopal episodes for the last month. She reports she was seen in the ED on Friday for a fall. Review of the records show she was walking up the stairs at her house became dizzy and fell backwards s triking her head. She reports she did lose consciousness at that time. The episode today she had finished eating breakfast and began to feel dizzy and weak. She reports she has Meclizine at home that she takes for the dizziness. She got up and was going to the other room to get her Meclizine when she fell backwards on the couch. She reports the sensation last for approx 20-30 minutes. She reports dizziness when changing positions. She denies any c/o CP, palpitations. She denies any LE swelling. She reports she has been wearing a heart monitor, but took it off for an MRI today, but she reports the battery is not working on the monitor. No c/o LE swelling. No c/o n/v/d. No c/o fever or chills. Review of Systems-Cardiology Review of Systems Constitutional: No chills, No fever, No malaise, No weight loss, No weight gain Eyes: No vision change Ears/Nose/Throat: No epistaxis, No recent hearing loss Respiratory: As described under HPI Cardiovascular: As described under HPI Gastrointestinal: No constipation, No diarrhea, No nausea, No vomiting Genitourinary: No dysuria, No hematuria Musculoskeletal: no symptoms reported Skin: No rash on exposed areas, No ulcerations on exposed areas Psychiatric/Neurological: syncope; No focal weakness Hematologic: No bleeding abnormalities TRG-Emmrup-Omqooh Hx Patient Social History Alcohol Use: Denies Use Recreational Drug Use: No Smoking Status: Former Smoker Type Used: Cigarettes Recent Foreign Travel: No Recent Infectious Disease Expo: No Physical Abuse Screen: No Sexual Abuse: No Immunizations Up To Date Date of Pneumonia Vaccine: Jan 21, 2018 Past Medical History PMH As described under Assessment. Family Medical History Family Medical History: She reports her mother and father had HTN and CVA Family History: Completed stroke 19 FATHER 19 MOTHER Diabetes mellitus SON Hypertension 19 FATHER 19 MOTHER Allergies and Home Medications Allergies Coded Allergies: No Known Drug Allergies (Unverified , 02/20/20) Home Medications Amlodipine Besylate 5 Mg Tablet, 5 MG PO DAILY Prescribed by: SINDHU MCDANIELS on 02/21/20 1522 Aspirin/Acetaminophen/Caffeine 1 Each Tablet, 1 EACH PO PRN PRN for HEADACHE, (Reported) Carboxymethylcellulos/Glycerin 15 Ml Drops, 1 DROP OU PRN PRN for ALLERGIES, (Reported) Carvedilol 25 Mg Tablet, 25 MG PO BID, (Reported) Cetirizine HCl 10 Mg Tablet, 10 MG PO DAILY, (Reported) Citalopram Hydrobromide 20 Mg Tablet, 20 MG PO DAILY, (Reported) Glipizide 10 Mg Tab.er.24, 10 MG PO BID, (Reported) Losartan Potassium 25 Mg Tablet, 25 MG PO DAILY, (Reported) Meclizine HCl 25 Mg Tablet, 12.5 MG PO BID PRN for DIZZINESS Prescribed by: ISNDHU MCDANIELS on 02/21/20 1522 Metformin HCl 1,000 Mg Tablet, 1,000 MG PO BID, (Reported) Pantoprazole Sodium 40 Mg Tablet.dr, 40 MG PO DAILY, (Reported) TAKES BEFORE BREAKFAST Rosuvastatin Calcium 5 Mg Tablet, 5 MG PO DAILY, (Reported) Vitamin D 10 Mcg Tablet, 10 MCG PO DAILY, (Reported) 400 UNITS Vitamin E 1,000 Unit Capsule, 1,000 UNIT PO DAILY, (Reported) Patient Home Medication List Home Medication List Reviewed: Yes Physical Exam-Cardiology Physical Exam Vital Signs/I&O 03/27/20 03/27/20 03/27/20 03/27/20 01:00 06:00 06:47 09:17 Temp 36.9 Pulse 64 67 74 Resp 16 B/P (MAP) 140/65 (90) Pulse Ox 97 O2 Delivery Room Air Room Air 03/27/20 00:00 Intake Total 1140 ml Balance 1140 ml Capillary Refill : Constitutional: AAO x 3, well-developed, well-nourished HEENT: PERRL, hearing is well preserved, oral hygience is good Neck: No carotid bruit; carotid pulses are 2 + bilaterally Respiratory: No accessory muscle use, No respiratory distress; chest expansion is symmetric, chest is bilaterally symmetric, lungs clear to auscultation Cardiovascular: regular rate-rhythm; No JVD; S1 and S2 Gastrointestinal: No tender; soft, round, audible bowel sounds Extremities: no lower extremity edema bilateral Neurologic/Psychiatric: grossly intact (moves all extremities) Skin: No rash on exposed areas, No ulcerations on exposed areas; other (brusing to left side of neck, LACW and back shoulder left side) Data Review Labs Laboratory Tests 03/26/20 16:55: Glucometer 148H 03/26/20 20:58: Glucometer 275H 03/27/20 05:25: White Blood Count 4.6, Red Blood Count 2.93L, Hemoglobin 8.5L, Hematocrit 26L, Mean Corpuscular Volume 89, Mean Corpuscular Hemoglobin 29, Mean Corpuscular Hemoglobin Concent 32, Red Cell Distribution Width 12.3, Platelet Count 308, Mean Platelet Volume 10.0, Immature Granulocyte % (Auto) 0, Neutrophils (%) (Auto) 59, Lymphocytes (%) (Auto) 25, Monocytes (%) (Auto) 12, Eosinophils (%) (Auto) 4, Basophils (%) (Auto) 0, Neutrophils # (Auto) 2.7, Lymphocytes # (Auto) 1.1, Monocytes # (Auto) 0.5, Eosinophils # (Auto) 0.2, Basophils # (Auto) 0.0, Immature Granulocyte # (Auto) 0.0, Sodium Level 139, Potassium Level 4.4, Chloride Level 106, Carbon Dioxide Level 22, Anion Gap 11, Blood Urea Nitrogen 24H, Creatinine 1.48H, Estimat Glomerular Filtration Rate 34, BUN/Creatinine Ratio 16, Glucose Level 75, Calcium Level 9.1, Corrected Calcium 9.3, Total Bilirubin 0.5, Aspartate Amino Transf (AST/SGOT) 12, Alanine Aminotransferase (ALT/SGPT) 8, Alkaline Phosphatase 58, Total Protein 6.4, Albumin 3.7 03/27/20 05:42: Glucometer 91 03/27/20 11:09: Glucometer 288H Radiology NAME: YADI REDDING [facility] REC#: [id number] PT STATUS: ADM IN : 1940 PHYSICIAN: SINDHU MCDANIELS DO ADMIT DATE: 03/23/20/IRF Signed Date of Exam:03/23/20 MRI BRAIN W/O CONTRAST PROCEDURE: MR imaging of the brain without contrast. TECHNIQUE: Multiplanar, multisequence MR imaging of the brain was performed without contrast. INDICATION: Syncopal episode. Dizziness and right-sided weakness. Fell 3 days ago and hit back of head. COMPARISON: CT head on 03/23/2020, 03/20/2020. Findings: A small focus of restricted diffusion is seen in the anterior medial aspect of the right frontal lobe adjacent to the interhemispheric fissure. More faint restricted diffusion is seen in the left basal ganglia and left thalamus. No associated mass effect or hemorrhage is seen. Focal and confluent areas of T2 hyperintense signal are seen in the periventricular and subcortical white matter. The ventricles and cortical sulci are mildly prominent. The basilar cisterns are symmetric and unremarkable. The sellar and suprasellar regions have a normal appearance. The brainstem and posterior fossa are unremarkable. The paranasal sinuses and mastoid air cells demonstrate normal signal characteristics. Bilateral lens implants are noted. The globes and orbits are symmetric and unremarkable. Prominent scalp hematoma is seen overlying the left parietal region. The calvarium is intact. IMPRESSION: 1. Small punctate focus of restricted diffusion in the anterior medial aspect of the right frontal lobe with more faint areas of restricted diffusion in the left basal ganglia and left thalamus, which may represent foci of acute/subacute ischemia. No associated mass effect or hemorrhage is seen. Given the multiplicity this may be embolic in etiology. Recommend further evaluation with carotid ultrasound and echocardiogram if indicated and correlation with patient history. 2. Prominent scalp hematoma overlying the left parietal region. 3. Mild parenchymal volume loss with focal and confluent areas of chronic microvascular disease in the periventricular and subcortical white matter. Dictated by: Dictated on workstation # [id number] Dict: 03/23/20 1304 Trans: 03/23/20 1320 [facility] [id number] Interpreted by: NEGRITA CARVER DO Electronically signed by: NEGRITA CARVER DO 03/23/20 1321 A/P-Cardiology Assessment/Admission Diagnosis Syncope, near syncope of undetermined etiology Per MRI of the brain on 2019: Small punctate focus of restricted diffusion in the anterior medial aspect of the right frontal lobe with more faint areas of restricted diffusion in the left basal ganglia and left thalamus, which may represent foci of acute/subacute ischemia. No associated mass effect or hemorrhage is seen. - Management per stroke team MPI of 02-21-[address] Underwood: Pharmacological stress test was negative for ischemia. Normal LV function with no wall motion abnormalities. Normal myocardial perfusion imaging during rest and stress. Echocardiogram of 02-21-[address] Underwood showed concentric LVH. LVEF 65-70%. Grade 1 diastolic dysfunction. PASP 25-30mmHg DM 2 HTN GERD Discussion and Recomendations Continue telemetry If no significant arrhythmia detected on tele, then ILR Monitor labs from time to time Physician Assessment Physician Assessment Pt interviewed and examined on the date of this note Updates made as indicated by italics Pt's questions answered ISABELLA FARIAS Mar 23, 2020 13:40 THERON AMES MD FACP FAC CCDS Mar 27, 2020 12:19
[2020-03-23] MEDS ORDERED: ARTIFICAL TEARS 0.4 ML UNIT DOSE (REFRESH PLUS) OU PRN (14:00)
--- NOTE | 2020-03-23 14:00 | NUR ---
HERB HERE TO SEE PATIENT. TELEMETRY STARTED. CLARIFIED WITH DR. MCDANIELS RE: TO GIVE LOVENOX WITH HEMATOMA. ORDER TO HOLD LOVENOX AT THIS TIME. PATIENT STATES 30 DAY MONITOR'S BATTERY IS AND EXTERNAL DEVICE REMOVED.
--- NOTE | 2020-03-23 14:39 | Physical Therapy Evaluation ---
PT Evaluation-General Medical Diagnosis Admission Date Mar 23, 2020 at 11:39 Medical Diagnosis: closed head injury with LOC Onset Date: Mar 20, 2020 Therapy Diagnosis Therapy Diagnosis: weakness Precautions Precautions/Isolations: Fall Prevention, Standard Precautions Referral Physician: Eleanor Reason for Referral: Evaluation/Treatment Medical History Pertinent Medical History: DM, HTN, Renal Insufficiency Additional Medical History DDD, depression, renal failure Current History Pt admitted to ARU post presentation to ED after a fall to her couch at home. She was recently discharged from this hospital, she had been admitted for a fall. After the first fall, it was reported that she did have a LOC post syncopal episode. She denies LOC this date. Reviewed History: Yes Social History Home: Single Level Current Living Status: Alone Entry Into Home: Stairs With Railing PT Steps Into Home: 2 Prior Prior Level of Function SCALE: Activities may be completed with or without assistive devices. 2-Wxoyfrtqmj-uwxwrag completes the activity by him/herself with no assistance f rom a helper. 5-Set-up or Clean-up Assistance-helper sets up or cleans up; patient completes activity. [place] assists only prior to or following the activity. 4-Supervision or Touching Assistance-helper provides verbal cues and/or touching/steadying and/or contact guard assistance as patient completes activity. Assistance may be provided throughout the activity or intermittently. 3-Partial/Moderate Assistance-helper does LESS THAN HALF the effort. [place] lifts, holds or supports trunk or limbs, but provides less than half the effort. 2-Substantial/Maximal Assistance-helper does MORE THAN HALF the effort. [place] lifts or holds trunk or limbs and provides more than half the effort. 1-Clnqylkpz-wdgfrx does ALL the effort. Patient does none of the effort to complete the activity. Or, the assistance of 2 or more helpers is required for the patient to complete the activity. If activity was not attempted, code reason: 7-Patient Refused. 9-Not Applicable-not attempted and the patient did not perform the activity before the current illness, exacerbation or injury. 10-Not Attempted due to Environmental Limitations-(lack of equipment, weather restraints, etc.). 88-Not Attempted due to Medical Conditions or Safety Concerns. Bed Mobility: 6 Transfers (B,C,W/C): 6 Gait: 6 Stairs: 6 Indoor Mobility (Ambulation): Independent Stairs: Independent Prior Devices Use: None Pt still drives and ambulated community distances. 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 PT Evaluation-Current Subjective Pt is agreeable to PT. Reports she has had a few episodes of dizziness that have resulted in falls. Reports she is tired today and intermittently during treatment, reports she feels "woozy". Pt/Family Goals Her goal is to return home alone as before. Objective Patient Orientation: Person, Place, Time, Situation ROM/Strength ROM Lower Extremities WNL Strength Lower Extremities B LE strength is grossly 4/5 Integumentary/Posture Integumentary intact and functional Bowel Incontinence: No Bladder Incontinence: No Posture normal and symmetrical Neuromuscular (Tone, Coordination, Reflexes) intact and functional Sensory Vision: Wears Glasses Hearing: Functional Hand Dominance: Right Sensation Right Lower Extremit: Intact Sensation Left Lower Extremity: Intact Transfers Roll Left to Right (QC): 4 Sit to Lying (QC): 3 Lying to Sitting/Side of Bed(Q: 3 (min assist iwth cues for sequencing. ) Sit to Stand (QC): 3 (CGA for balance and safety. ) Chair/Bqw-ck-Clsnp Xfer(QC): 3 Toilet Transfer (QC): 3 Car Transfer (QC): 4 Takes extra time and typically does not push up from the chair with her hands. Gait Does the Patient Walk?: Yes Mode of Locomotion: Walk Anticipated Mode of Locomotion: Walk Walk 10 feet (QC): 3 Walk 50 ft with 2 Turns(QC): 3 Walk 150 ft (QC): 3 Walking 10ft/uneven surface-QC: 3 Distance: 150 ft x 3 reps Gait Assistive Device: FWW Comments/Gait Description Slow gait that is slightly unsteady at times; she tends to veer left and has some difficulty avoiding obstacles. Wheelchair Training Does the Pt Use a Wheelchair?: No Wheel 50 ft with 2 turns (QC): 9 Wheel 150 ft (QC): 9 Stairs 1 Step (curb) (QC): 3 4 Steps (QC): 3 12 Steps (QC): 88 reciprocal gait and uses B handrails; slightly unsteady on steps. Balance Sitting Static: Normal Sitting Dynamic: Normal Standing Static: Fair Standing Dynamic: Fair Picking up an Object (QC): 3 Treatment Functional mobility training to include multiple transfers from multiple surfaces with skilled cues for sequencing and correct hand placement; safety training. Bed mobility training; functional transfers in the bathroom and high level balance activities -- co treat with OT x 30 minutes; skill of 2 clinicians indicated as OT addressed ADL skills as PT addressed shower and toilet transfer and static/dynamic balance. Functional gait training with education on walker use and avoidance of obstacles. Assessment/Needs Pt presents post presentation to ED after a recent hospital stay. she presents with falls at home with decreased functional safety and ability to mobilize. She has balance and strength deficits that impair safe bed mobility, transfer and gait. She is unsteady with gait and is currently using a FWW for safety. She will benefit from skilled PT services to address these deficits and work to ambulate with least restrictive AD. Her goal is to return home at an indep level and care for herself and she has excellent potential to achieve this. Rehab Potential: Good PT Short Term Goals Short Term Goals Time Frame: Mar 30, 2020 Sit to lyin Lying to sitting on side of be: 4 Walk 150 feet: 4 4 steps: 4 PT Brilliandeer Lopper Goals [facility] Goals PT Brilliandeer Lopper Goals Time Frame: Apr 10, 2020 Roll Left & Right (QC): 6 Sit to Lying (QC): 6 Lying-Sitting on Side/Bed(QC): 6 Sit to Stand (QC): 6 Chair/Uvm-zs-Ovwad Xfer(QC): 6 Toilet Transfer (QC): 6 Car Transfer (QC): 6 Does the Patient Walk: Yes Walk 10 feet (QC): 6 Walk 50ft with 2 Turns (QC): 6 Walk 150 ft (QC): 6 Walking 10ft on Uneven Surface: 6 1 Step (curb) (QC): 6 4 Steps (QC): 6 12 Steps (QC): 5 Picking up an Object (QC): 5 Does the Pt use WC or Scooter?: No Wheel 50 feet with 2 turns (QC: 9 Wheel 150 feet: 9 PT Plan Problem List Problem List: Activity Tolerance, Functional Strength, Safety, Balance, Gait, Transfer, Bed Mobility Treatment/Plan Treatment Plan: Continue Plan of Care Treatment Plan: Bed Mobility, Education, Functional Activity Alicia, Functional Strength, Group Therapy, Gait, Safety, Therapeutic Exercise, Transfers Treatment Duration: Apr 10, 2020 Frequency: At least 5 of 7 days/Wk (IRF) Estimated Hrs Per Day: 1.5 hours per day Patient and/or Family Agrees t: Yes Safety Risks/Education Patient Education: Transfer Techniques, Safety Issues Teaching Recipient: Patient Teaching Methods: Demonstration, Discussion Response to Teaching: Reinforcement Needed Discharge Recommendations Therapy Discharge Recommendati: Post Acute PT Time/GCodes Time In: 1130 Time Out: 1200 ([id number]) Total Billed Treatment Time: 90 Total Billed Treatment visit x 2 EVM 15 FA 60 GT 15 Co treat with OT 30 min [id number] GERI ROBLEDO PT Mar 23, 2020 14:39
--- NOTE | 2020-03-23 14:42 | Progress Note ---
ISRAEL GRANDE,MED STUDENT 03/23/20 1442: Progress Note HPI: Patient is a 79yo female who presented to the ED due to a fall. She has a history of falls and she recently spent a day in the hospital for a fall. During her recent visit cardiology was consulted and an echo and stress test were performed, which were normal. She then had a 30 day loop recorder placed. She has no history of CAD or stroke. She also has a history of dizziness and vertigo. While in the ED she had a CT done, which revealed no acute findings. When she had another episode of dizziness in the ED, she was given meclizine and 500 of saline, which improved the dizziness. PMH: Cardiac: High Cholesterol, Hypertension Genitourinary: Renal Failure Musculoskeletal: Degenerate Disk Disease Endocrine: Diabetes, Non-Insulin dep Psychosocial: Depression History of Blood Disorders: No SH: Former smoker, quit 1960 Retired Allergies: NKMA Home Medications Amlodipine Besylate (Amlodipine Besylate), 5 MG PO DAILY Carvedilol (Carvedilol), 25 MG PO BID, (Reported) Cetirizine HCl (Zyrtec), 10 MG PO DAILY, (Reported) Citalopram Hydrobromide (Citalopram HBr), 20 MG PO DAILY, (Reported) Glipizide (Glipizide ER), 10 MG PO BID, (Reported) Losartan Potassium (Losartan Potassium), 25 MG PO DAILY, (Reported) Metformin HCl (Metformin HCl), 1,000 MG PO BID, (Reported) Pantoprazole Sodium (Pantoprazole Sodium), 40 MG PO DAILY, (Reported) Rosuvastatin Calcium (Rosuvastatin Calcium), 5 MG PO DAILY, (Reported) Vitamin D (Vitamin D3), 400 MCG PO DAILY, (Reported) Vitamin E (Vitamin E), 1,000 UNIT PO DAILY, (Reported) Review of Systems Constitutional: No chills, No diaphoresis Eyes: Denies Blindness, Denies Blurred Vision Ears, Nose, Mouth, Throat: denies ear pain, denies ear discharge Respiratory: No cough, No short of breath Cardiovascular: No chest pain, No edema, No Hx of Intervention, No palpitations Gastrointestinal: No abdominal pain, No constipation, No diarrhea, No nausea Genitourinary: No discharge, No dysuria Musculoskeletal: No back pain, No joint pain Physical Exam: General Appearance: WD/WN, no apparent distress HEENT: PERRL/EOMI, normal ENT inspection Neck: non-tender, full range of motion, supple, normal inspection Respiratory: lungs clear, normal breath sounds, no respiratory distress, no accessory muscle use Cardiovascular: normal peripheral pulses, regular rate, rhythm Peripheral Pulses: 2+ Radial Pulses (R), 2+ Radial Pulses (L) Gastrointestinal: normal bowel sounds, non tender, soft Neurologic/Psychiatric: portal developer II-XII nml as tested, no motor/sensory deficits, alert, normal mood/affect, oriented x 3 Motor/Sensory: no motor deficit, no sensory deficit Skin: normal color, warm/dry Assessment: 1. BPPV 2. Closed head injury w/o LOC 3. Recurrent falls 4. Hypertension 5. Hyperlipidemia 6. NIDDM 7. Degenerative disk disease 8. Renal insufficiency Plan: Due to this patient's history of dizziness and recurrent falls, she will be admitted to the IRF to work with PT and OT. Prior to presentation she lived independently at home and could care for herself. She was able to transfer from sitting to standing, to and from the toilet, transfer to a car, from lying to sitting, and could walk on uneven surfaces. During her stay her goals will be to improve strength and balance in order to return to ambulating safely with assistive device to safely return home and care for herself independently. Cardiology was consulted due to her syncopal and near-syncopal episodes. SINDHU MCDANIELS DO 03/24/20 1633: Supervisory-Addendum Brief Verification & Attestation Participated in pt care: history, MDM, physical Personally performed: exam, history, MDM, supervision of care Care discussed with: Medical Student Procedures: n/a Results interpretation: Verified all documentation Verification and Attestation of Medical Student E/M Service A medical student performed and documented this service in my presence. I reviewed and verified all information documented by the medical student and made modifications to such information, when appropriate. I personally performed the physical exam and medical decision making. Sindhu Mcdaniels, Mar 24, 2020,16:33 ISRAEL GRANDE,MED STUDENT Mar 23, 2020 14:42 SINDHU MCDANIELS DO Mar 24, 2020 16:33
--- NOTE | 2020-03-23 15:00 | NUR ---
US CAROTID DONE.
[2020-03-23] MEDS ORDERED: ASPIRIN 325 MG (5 GR) TABLET PO PRN (15:30)
[2020-03-23] MEDS ORDERED: ACETAMINOPHEN 500 MG TAB (TYLENOL) PO PRN (15:30)
--- NOTE | 2020-03-23 15:30 | Diagnostic Imaging Report ---
PROCEDURE: US carotid duplex, bilateral. TECHNIQUE: Multiple real-time grayscale images were obtained over the carotid arteries in various projections, bilaterally. Additional spectral analysis and color Doppler duplex images were also obtained. INDICATION: CVA Parameters based on the consensus panel Velazquez-Scale and Doppler ultrasound criteria published April 2003, Radiology, Volume 229. DOPPLER (peak systolic velocity M/S Right Left CCA 0.63 0.60 ICA Proximal 0.43 0.36 ICA Mid 0.51 0.54 ICA Distal 0.51 0.59 RATIO 0.82 0.98 ECA 1.14 0.72 VERT 0.33 0.32 Normal antegrade flow within both vertebral arteries. Waveforms are normal. No significant plaque is seen. IMPRESSION: No hemodynamically significant stenosis of the bilateral internal carotid arteries by velocity and ratio criteria. Dictated by: Dictated on workstation # [id number]
--- NOTE | 2020-03-23 17:00 | NUR ---
STATES NUMBNESS/TINGLING RIGHT LEG AND RIGHT FINGERS EARLIER THIS MORNING, BUT ONLY RIGHT FINGERS NOW. VSS.
[2020-03-23] MEDS: inSUlin ASPART (NovoLOG) 1 UNIT/0.01 ML (CHARGE PER UNIT) SC SCH ×2 (17:36→21:44)
--- NOTE | 2020-03-23 18:00 | NUR ---
MEDICATED WITH ASPIRIN AND TYLENOL FOR LEFT SHOULDER PAIN AND HEADACHE.
[2020-03-23 18:09] VITALS: BP 119/59
--- NOTE | 2020-03-23 20:04 | NUR ---
PATIENT UP IN CHAIR AT THIS TIME. REPORTS MINIMAL TINGLING IN TIPS OF FINGERS ON RIGHT AND RIGHT EAR SLIGHTLY NUMB. STATES IT IS UNCHANGED SENSATION THAT SHE BEGAN EXPERIENCING THIS MORNING. DENIES ANY FURTHER C/O OR SYMPTOMS. A/O AND PLEASANT. NEURO ASSESSMENT WNL. (SEE SOC FOR DETAILS). PATIENT EDUCATED ON STROKE SYMPTOMS AND TO NOTIFY NURSING OF ANY C/O OR NEW SYMPTOM ONSET. VERBALIZES UNDERSTANDING. CONT TO MONITOR.
[2020-03-23] MEDS: CARVEDILOL 12.5 MG (COREG) TABLET PO SCH (21:44)
[2020-03-23] MEDS: polyethylene glycoL POWDER 17 GM (MIRALAX) PACK PO SCH (21:44)
[2020-03-23] MEDS: DOCUSATE SODIUM 100 MG (COLACE) CAP PO SCH (21:44)
[2020-03-23] MEDS: SENNA W/DOCUSATE (SENOKOT S) TABLET PO SCH (21:44)
[2020-03-23] MEDS: glipiZIDE XL 10 MG (GLUCOTROL XL) TAB PO SCH (21:44)
[2020-03-24] MEDS: inSUlin ASPART (NovoLOG) 1 UNIT/0.01 ML (CHARGE PER UNIT) SC SCH ×4 (05:43→21:07)
[2020-03-24 06:08] VITALS: BP 138/84
[2020-03-24 06:46] LABS: BASOPHILS % (AUTO) 0 % (0-10); EOSINOPHILS # (AUTO) 0.2 10^3/uL (0.0-0.3); EOSINOPHILS % (AUTO) 3 % (0-10); HEMATOCRIT 26 % (35-52); HEMOGLOBIN 8.4 g/dL (11.5-16.0); LYMPHOCYTES # (AUTO) 1.3 10^3/uL (1.0-4.0); LYMPHOCYTES % (AUTO) 25 % (12-44); MEAN CORPUSCULAR HEMOGLOBIN 29 pg (25-34); MEAN CORPUSCULAR HGB CONC 33 g/dL (32-36); MEAN CORPUSCULAR VOLUME 89 fL (80-99); MEAN PLATELET VOLUME 9.9 fL (9.0-12.2); MONOCYTES # (AUTO) 0.6 10^3/uL (0.0-1.0); MONOCYTES % (AUTO) 11 % (0-12); NEUTROPHILS # (AUTO) 3.2 10^3/uL (1.8-7.8); NEUTROPHILS % (AUTO) 60 % (42-75); PLATELET COUNT 258 10^3/uL (130-400); WHITE BLOOD COUNT 5.3 10^3/uL (4.3-11.0)
[2020-03-24 06:56] LABS: ALBUMIN 3.8 GM/DL (3.2-4.5)
[2020-03-24 06:58] LABS: TOTAL PROTEIN 6.3 GM/DL (6.4-8.2)
[2020-03-24 07:00] LABS: BILIRUBIN,TOTAL 0.5 MG/DL (0.1-1.0)
[2020-03-24 07:02] LABS: CREATININE SERUM 1.6 MG/DL (0.60-1.30)
[2020-03-24] MEDS ORDERED: amLODIPine 5 MG (NORVASC) TAB PO SCH (09:00)
--- NOTE | 2020-03-24 09:02 | Physical Therapy Daily Note ---
PT Daily Note-Current Subjective Pt. is up in recliner and agrees to Rx. No c/o dizziness or pain this morning Pain Location: No Pain Reported Mental Status Patient Orientation: Person, Place, Time, Situation Attachments: Other-See Comments (mask while out of room) Transfers SCALE: Activities may be completed with or without assistive devices. 2-Luzyqyyiwv-apemtzs completes the activity by him/herself with no assistance from a helper. 5-Set-up or Clean-up Assistance-helper sets up or cleans up; patient completes activity. [place] assists only prior to or following the activity. 4-Supervision or Touching Assistance-helper provides verbal cues and/or touching/steadying and/or contact guard assistance as patient completes activity. Assistance may be provided throughout the activity or intermittently. 3-Partial/Moderate Assistance-helper does LESS THAN HALF the effort. [place] lifts, holds or supports trunk or limbs, but provides less than half the effort. 2-Substantial/Maximal Assistance-helper does MORE THAN HALF the effort. [place] lifts or holds trunk or limbs and provides more than half the effort. 6-Tgscygjld-mspyer does ALL the effort. Patient does none of the effort to complete the activity. Or, the assistance of 2 or more helpers is required for the patient to complete the activity. If activity was not attempted, code reason: 7-Patient Refused. 9-Not Applicable-not attempted and the patient did not perform the activity before the current illness, exacerbation or injury. 10-Not Attempted due to Environmental Limitations-(lack of equipment, weather restraints, etc.). 88-Not Attempted due to Medical Conditions or Safety Concerns. Roll Left & Right (QC): 6 Sit to Lying (QC): 6 Lying to Sitting/Side of Bed(Q: 6 Sit to Stand (QC): 6 Chair/Ajh-uc-Lkuai Xfer(QC): 6 Toilet Transfer (QC): 6 pt. rolls and moves slowly and gingerly as she states she has some discomfort on left side of head if she lays on it so she avoids that position Gait Training Does the Patient Walk?: Yes Walk 10 feet (QC): 4 Walk 50 ft with 2 Turns(QC): 4 Walk 150 ft (QC): 4 Gait Persons Needed: 1 Gait Assistive Device: FWW pt. requires CGA as she had one incident early in gait this Rx requiring cuing and CGA min to recover, this happened with a turn in the bathroom Exercises Supine Ex: Bridging, Ankle pumps, Rolling, Heel Slides Supine Reps: 10 Seated Therapy Exercises: Ankle pumps, Sit to stand, Long arc quads, Hip flexion, Hip abd/add Seated Reps: 12 NuStep Minutes: 8 NuStep Workload: 4 Neuromuscular balance challenges derived from SOLIS : 360 degree turns, turn/twists, narrow based stance, 90 degree SPTs not using hands etc, no LOB but very slow and some shakiness with this Treatments toileted with one near LOB while pulling pants up at toilet Assessment Current Status: Good Progress PT Short Term Goals Short Term Goals Time Frame: Mar 30, 2020 Sit to lyin Lying to sitting on side of be: 4 Walk 150 feet: 4 4 steps: 4 PT Detention Goals Heel Burnisher Goals PT Heel Burnisher Goals Time Frame: Apr 10, 2020 Roll Left & Right (QC): 6 Sit to Lying (QC): 6 Lying-Sitting on Side/Bed(QC): 6 Sit to Stand (QC): 6 Chair/Wzg-pg-Gbjfr Xfer(QC): 6 Toilet Transfer (QC): 6 Car Transfer (QC): 6 Does the Patient Walk: Yes Walk 10 feet (QC): 6 Walk 50ft with 2 Turns (QC): 6 Walk 150 ft (QC): 6 Walking 10ft on Uneven Surface: 6 1 Step (curb) (QC): 6 4 Steps (QC): 6 12 Steps (QC): 5 Picking up an Object (QC): 5 Does the Pt use WC or Scooter?: No Wheel 50 feet with 2 turns (QC: 9 Wheel 150 feet: 9 PT Plan Treatment/Plan Treatment Plan: Continue Plan of Care Treatment Plan: Bed Mobility, Education, Functional Activity Alicia, Functional Strength, Group Therapy, Gait, Safety, Therapeutic Exercise, Transfers Treatment Duration: Apr 10, 2020 Frequency: At least 5 of 7 days/Wk (IRF) Estimated Hrs Per Day: 1.5 hours per day Patient and/or Family Agrees t: Yes Safety Risks/Education Patient Education: Gait Training, Transfer Techniques, Correct Positioning, Disease Process, Safety Issues Teaching Recipient: Patient Teaching Methods: Demonstration, Discussion Response to Teaching: Verbalize Understanding, Return Demonstration, Reinforcement Needed Time/GCodes Time In: 800 Time Out: 900 Total Billed Treatment Time: 60 Total Billed Treatment 1,NM15m,EX25m,GT20m GRIS 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
[2020-03-24] MEDS: VITAMIN E 180 MG (400 UNITS) CAP PO SCH (09:16)
[2020-03-24] MEDS: SENNA W/DOCUSATE (SENOKOT S) TABLET PO SCH ×2 (09:16→21:06)
[2020-03-24] MEDS: LORATADINE (CLARITIN) 10 MG TAB PO SCH (09:17)
[2020-03-24] MEDS: LOSARTAN 25 MG (COZAAR) TAB PO SCH (09:17)
[2020-03-24] MEDS: DOCUSATE SODIUM 100 MG (COLACE) CAP PO SCH ×2 (09:17→21:07)
[2020-03-24] MEDS: ROSUVASTATIN 5 MG (CRESTOR) TABLET PO SCH (09:17)
[2020-03-24] MEDS: polyethylene glycoL POWDER 17 GM (MIRALAX) PACK PO SCH ×2 (09:17→21:06)
[2020-03-24] MEDS: CARVEDILOL 12.5 MG (COREG) TABLET PO SCH ×2 (09:17→21:06)
[2020-03-24] MEDS: PANTOPRAZOLE 40 MG (PROTONIX) TAB PO SCH (09:17)
[2020-03-24] MEDS: glipiZIDE XL 10 MG (GLUCOTROL XL) TAB PO SCH ×2 (09:17→21:06)
[2020-03-24] MEDS: VITAMIN D3 10 MCG (400 UNITS) TABLET PO SCH (09:20)
--- NOTE | 2020-03-24 09:21 | Progress Note ---
ISRAEL GRANDEMED STUDENT 03/24/20 0921: Progress Note Progress note: 03/24/20 No questions or concerns this morning Denies dizziness, MENESES, n/v/d Has not had a bm yet today Awake and sitting in chair, and is alert and oriented Carotid u/s 03/23 revealed no significant stenosis Plan: Begin working with PT and OT, focusing on improving balance Continue home medications Fall prevention precautions SINDHU MCDANIELS DO 03/24/20 1633: Supervisory-Addendum Brief Verification & Attestation Participated in pt care: history, MDM, physical Personally performed: exam, history, MDM, supervision of care Care discussed with: Medical Student Procedures: n/a Results interpretation: Verified all documentation Verification and Attestation of Medical Student E/M Service A medical student performed and documented this service in my presence. I reviewed and verified all information documented by the medical student and made modifications to such information, when appropriate. I personally performed the physical exam and medical decision making. Sindhu Mcdaniels Mar 24, 2020,16:33 ISRAEL GRANDE MED STUDENT Mar 24, 2020 09:21 SINDHU MCDANIELS DO Mar 24, 2020 16:33
--- NOTE | 2020-03-24 09:45 | Individualized Plan of Care ---
Individualized Plan of Care Rehab Nursing IPOC Order Admission Date Mar 23, 2020 at 11:39 Current Orders Orders Admission Order(Inpt,Obs,Sdc) (03/23/20 11:35) Vital Signs: Per Unit Policy ( 08,16,00 (03/23/20 11:35) Kirk Escalona 09,21 (03/23/20 11:35) Sequential Compression Device Q4H (03/23/20 11:35) Podiatric Aide-Inpt Rehab Con (03/23/20 11:35) Rehab Nursing Orders-Ipoc (03/23/20 11:35) Physical Therapy Rehab Orders (03/23/20 11:35) Occupational Therapy Rehab Ord (03/23/20 11:35) Speech Therapy Rehab Orders (03/23/20 11:35) Cbc With Automated Diff (03/24/20 06:00) Comprehensive Metabolic Panel (03/24/20 06:00) Intake & Output 06,14,22 (03/23/20 11:35) Precautions (Aru) (03/23/20 11:35) Rehab-Intensity Of Therapy (03/23/20 11:35) Initiate Admission Nursing Pro .admission (03/23/20 11:35) Alprazolam Tablet (Xanax Tablet) (03/23/20 11:45) Calcium Carbonate Chew Tablet (Antacid C (03/23/20 11:45) Diphenhydramine Tablet (Benadryl Tablet) (03/23/20 11:45) Docusate Sodium Capsule (Colace Capsule) (03/23/20 21:00) Docusate Sodium Capsule (Colace Capsule) (03/23/20 11:45) Bisacodyl Suppository (Dulcolax Supposit (03/23/20 11:45) Lactulose Oral Solution (Enulose Oral So (03/23/20 11:45) Na Phos/Na Biphos Enema (Fleet Enema Az (03/23/20 11:45) Guaifenesin/Codeine Syrup (Robitussin Ac (03/23/20 11:45) Loperamide Tablet (Imodium Tablet) (03/23/20 11:45) Enoxaparin Injection (Lovenox Injection) (03/23/20 13:00) Melatonin Tablet (Melatonin Tablet) (03/23/20 11:45) Polyethylene Glycol Powder Pkt (Miralax (03/23/20 21:00) Ondansetron Oral Dissolve Tab (Zofran (03/23/20 11:45) Senna S Tablet (Senokot S Tablet) (03/23/20 21:00) Code/Resuscitation (03/23/20 11:35) Initiate Admission Nursing Pro .admission (03/23/20 11:35) Mri Brain W/O Contrast (03/23/20 11:35) Cho 60g/M 3snack (16-2000 Jeovany) (03/23/20 Lunch) Flu Quad High Dose 8148-0922 (Fluzone Hi (03/23/20 12:15) Enoxaparin Injection (Lovenox Injection) (03/23/20 13:00) Amlodipine Tablet (Norvasc Tablet) (03/24/20 09:00) Citalopram Tablet (Celexa Tablet) (03/24/20 09:00) Glipizide Xl Tablet (Glucotrol Xl Tablet (03/23/20 21:00) Losartan Tablet (Cozaar Tablet) (03/24/20 09:00) Meclizine Tablet (Antivert Tablet) (03/23/20 13:15) Pantoprazole Tablet (Protonix Tablet) (03/24/20 09:00) Rosuvastatin Tablet (Crestor Tablet) (03/24/20 09:00) Cholecalciferol Capsule/Tablet (Vitamin (03/24/20 09:00) Carboxymethylcell Ophth Soln (Refresh Pl (03/23/20 14:00) Carvedilol Tablet (Coreg Tablet) (03/23/20 21:00) Loratadine Tablet (Claritin Tablet) (03/24/20 09:00) Dl-Alpha Tochopheryl Capsule (Vitamin E (03/24/20 09:00) Accucheck Achs ACHS (03/23/20 13:16) Insulin Aspart (Novolog) (Novolog (Charg (03/23/20 16:00) Us Carotid Yoel Complete [id number] (03/23/20 13:39) Telemetry (03/23/20 13:39) Telemetry Nursing Assessment ( (03/23/20 13:39) Ambulate 08,12,20 (03/23/20 14:22) Sequential Compression Device Q4H (03/23/20 14:22) Dvt/Vte Risk - Notifiy Physici Q4H (03/23/20 14:22) Patient Visit (03/23/20 ) Pt Eval Moderate Complexity (03/23/20 ) Functional Activities, Ea 15 (03/23/20 ) Gait Training, Ea 15 Min (03/23/20 ) Acetaminophen Tablet (Tylenol Tablet) (03/23/20 15:30) Aspirin Tablet (Aspirin Tablet) (03/23/20 15:30) Consult Cardiology (03/24/20 09:44) Request Pt Additional Orders (03/24/20 10:00) Orthostatic Vital Signs (Adult (03/24/20 10:58) Patient Visit (03/24/20 ) Speech Sound Lang Comp (03/24/20 ) Patient Visit (03/24/20 ) Ex Neuromuscular, Ea 15 Min (03/24/20 ) Exercise Therap, Ea 15 Min (03/24/20 ) Gait Training, Ea 15 Min (03/24/20 ) Patient Visit (03/24/20 ) Ex Neuromuscular, Ea 15 Min (03/24/20 ) Rehab Nursing Orders: Ongoing Assess. of Cognitive Status, Ongoing Assess. of Function Status, Bladder Management, Bladder Scan, Bladder Training, Bowel Management, Bowel Training, Disease Management & Educaiton, DVT Prophylaxis, Fall Prevention, Fluid/Electrolyte/Nutrition Mgmt, Infection Prevention, Medication Management & Education, Management of Risks & Complications, Nutrition Management, Pain Management, Patient/Family Support, Safety Management Intensity of Therapy to be met Patient to be seen: Min.3h per day/5 of 7d PT IPOC Problem List: Activity Tolerance, Functional Strength, Safety, Balance, Gait, Transfer, Bed Mobility Treatment Plan: Continue Plan of Care Bed Mobility, Education, Functional Activity Alicia, Functional Strength, Group Therapy, Gait, Safety, Therapeutic Exercise, Transfers Treatment Duration: Apr 10, 2020 Frequency: At least 5 of 7 days/Wk (IRF) Estimated Hrs Per Day: 1.5 hours per day OT IPOC Problems: Decreased Activ Tolerance, Decreased Safety Aware, Decreased UE Strength, Impaired Coordination, Impaired Funct Balance, Impaired Self-Care Skills, Restricted Funct UE ROM (L shldr pain) OT Treatment, Training and Edu: Yes Plan of Care: ADL Retraining, Functional Mobility, Group Exercise/Act as Ind, UE Funct Exercise/Act, UE Neuromus Re-Ed/Coord Treatment Duration: Apr 14, 2020 Frequency: At least 5 of 7 days/Wk (IRF) Estimated Hrs Per Day: 1.[address] [facility] Speech Therapy Treatment Plan: Modify Plan, See Comments Treatment Duration: Mar 24, 2020 Frequency: Modified Program (IRF) Estimated Hrs Per Day: Other Podiatric Aide/Case Mgmt Podiatric Aide/Case Managemen: Discharge Planning Dietitian/Mechanical Maintenance Instructor Dietitian/Mechanical Maintenance Instructor to monitor nutritional status and make changes and/or recommendations as needed and work with speech pathology on dietary upgrades as the occur. 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 Medical Issues: Bowel/Bladder Function, DVT Prophylaxis, Falls Precautions, Fluid/Electrolyte/Nutrition Balance, Infection Protection, Pain Management Brief Synthesis of Preadmission Screen, Post-Admission Evaluation, and Therapy Evaluations: PT OT will focus on ambulatory skills and balance and help inner ear dysfunction with special exercises in order to resolve issues and allow patient to return home Medical Prognosis: Good Anticipated Length of Stay: 6 days MADI MCDANIELS DO Mar 24, 2020 09:45
--- NOTE | 2020-03-24 09:45 | PM&R Progress Note ---
Subjective HPI/CC On Admission Date Seen by Provider: Mar 24, 2020 Time Seen by Provider: 10:00 Subjective/Events-last exam Cardiology monitoring patient Telemetry reveals NSR no pauses of any other abnormality to cause falls No pain reported MRI reviewed Not as dizzy today Working on inner ear dysfunction today with PT Checked meds and labs Conferred with RN reviewed therapy notes Review of Systems General: Fatigue, Malaise Objective Exam Vital Signs Vital Signs Date Time Temp Pulse Resp B/P (MAP) Pulse Ox O2 Delivery O2 Flow Rate FiO2 03/25/20 01:00 73 03/24/20 20:05 97 Room Air 03/24/20 16:00 37.2 16 144/68 (93) Capillary Refill : Greater Than 3 Seconds General Appearance: No Apparent Distress, WD/WN, Chronically ill HEENT: PERRL/EOMI, Normal ENT Inspection, Pharynx Normal Neck: Full Range of Motion, Normal Inspection, Non Tender, Supple, Carotid Bruit Respiratory: Chest Non Tender, Lungs Clear, Normal Breath Sounds, No Accessory Muscle Use, No Respiratory Distress Cardiovascular: Regular Rate, Rhythm, No Edema, No Gallop, No JVD, No Murmur, Normal Peripheral Pulses Gastrointestinal: Normal Bowel Sounds, No Organomegaly, No Pulsatile Mass, Non Tender, Soft Back: Normal Inspection, No CVA Tenderness, No Vertebral Tenderness Extremity: Normal Capillary Refill, Normal Inspection, Normal Range of Motion, Non Tender, No Calf Tenderness, No Pedal Edema Neurologic/Psychiatric: Alert, Oriented x3, No Motor/Sensory Deficits, Normal Mood/Affect, checkout operator II-XII Norm as Tested, Abnormal Gait, Motor Weakness (generalized legs) Skin: Normal Color, Warm/Dry Lymphatic: No Adenopathy Results/Procedures Lab Laboratory Tests 03/24/20 06:30 Patient resulted labs reviewed. FIM Transfers Therapy Code Descriptions/Definitions Functional [place] Measure: 0=Not Assessed/NA 4=Minimal Assistance 1=Total Assistance 5=Supervision or Setup 2=Maximal Assistance 6=Modified [place] 3=Moderate Assistance 7=Complete IndependenceSCALE: Activities may be completed with or without assistive devices. 9-Otqfwjovbn-dnakdei completes the activity by him/herself with no assistance from a helper. 5-Set-up or Clean-up Assistance-helper sets up or cleans up; patient completes activity. [place] assists only prior to or following the activity. 4-Supervision or Touching Assistance-helper provides verbal cues and/or touching/steadying and/or contact guard assistance as patient completes activity. Assistance may be provided throughout the activity or intermittently. 3-Partial/Moderate Assistance-helper does LESS THAN HALF the effort. [place] lifts, holds or supports trunk or limbs, but provides less than half the effort. 2-Substantial/Maximal Assistance-helper does MORE THAN HALF the effort. [place] lifts or holds trunk or limbs and provides more than half the effort. 7-Ipfkqcqjx-dpxgnd does ALL the effort. Patient does none of the effort to complete the activity. Or, the assistance of 2 or more helpers is required for the patient to complete the activity. If activity was not attempted, code reason: 7-Patient Refused. 9-Not Applicable-not attempted and the patient did not perform the activity before the current illness, exacerbation or injury. 10-Not Attempted due to Environmental Limitations-(lack of equipment, weather restraints, etc.). 88-Not Attempted due to Medical Conditions or Safety Concerns. Roll Left to Right (QC): 6 Sit to Lying (QC): 6 Sit to Stand (QC): 6 Chair/Qmt-ir-Apfbl Xfer(QC): 6 Car Transfer (QC): 4 Gait Training Does the Patient Walk?: Yes Walk 10 feet (QC): 4 Walk 50 ft with 2 Turns(QC): 4 Walk 150 ft (QC): 4 Walking 10ft/uneven surface-QC: 3 Gait Persons Needed: 1 Gait Assistive Device: FWW Wheelchair Training Does the Pt Use a Wheelchair?: No Wheel 50 ft with 2 turns (QC): 9 Wheel 150 ft (QC): 9 Stair Training 1 Step (curb) (QC): 3 4 Steps (QC): 3 12 Steps (QC): 88 Balance Picking up an Object (QC): 3 ADL-Treatment Eating (QC): 6 Oral Hygiene (QC): 4 Bathing Location: L Arm, R Arm, L Upper Leg, R Upper Leg, L Lower Leg (including foot), R Lower Leg (including foot), Chest, Abdomen, Buttocks (SBA), Perineal Area Shower/Bathe Self (QC): 4 (SBA for safety) Upper Body Dressing (QC): 5 Lower Body Dressing (QC): 4 On/Off Footwear (QC): 5 Toileting Hygiene (QC): 4 Toilet Transfer (QC): 4 Assessment/Plan Assessment and Plan Assess & Plan/Chief Complaint Assessment: Closed head injury with LOC now with recurrent falls Dizziness CRI DM HTN HLP Plan: MRI IRF protocol Home meds Fall risk prevention 03/24/20: Inner ear dysfunction exercises Monitor Tely for pauses Monitor closely (1) LOC (loss of consciousness) (2) Closed head injury Status: Acute (3) Diabetes mellitus (4) Renal insufficiency (5) Hyperlipemia (6) Hypertension (7) Scalp hematoma Status: Acute (8) Arm paresthesia, right Status: Acute (9) Vertigo Status: Acute (10) Concussion Status: Acute (11) Syncope and collapse Status: Acute MADI MCDANIELS DO Mar 24, 2020 09:45
--- NOTE | 2020-03-24 10:37 | Progress Note - Cardiology ---
Cardiology SOAP Progress Note Subjective: Up with PT. Reports previous c/o numbness in her fingertips has resolved. No c/o syncope or near syncope. No c/o CP, palpitations or dyspnea. Objective: I&O/Vital Signs 03/27/20 03/27/20 03/27/20 03/27/20 01:00 06:00 06:47 09:17 Temp 36.9 Pulse 64 67 74 Resp 16 B/P (MAP) 140/65 (90) Pulse Ox 97 O2 Delivery Room Air Room Air 03/27/20 00:00 Intake Total 1140 ml Balance 1140 ml Constitutional: AAO x 3, well-developed, well-nourished Respiratory: chest expansion is symmetric, chest is bilaterally symmetric, lungs clear to auscultation Cardiovascular: regular rate-rhythm, S1 and S2 Gastrointestional: soft, round, audible bowel sounds Extremities: no lower extremity edema bilateral Neurologic/Psychiatric: grossly intact Skin: other Results/Procedures: Labs Laboratory Tests 03/26/20 11:20: Glucometer 185H 03/26/20 16:55: Glucometer 148H 03/26/20 20:58: Glucometer 275H 03/27/20 05:25: White Blood Count 4.6, Red Blood Count 2.93L, Hemoglobin 8.5L, Hematocrit 26L, Mean Corpuscular Volume 89, Mean Corpuscular Hemoglobin 29, Mean Corpuscular Hemoglobin Concent 32, Red Cell Distribution Width 12.3, Platelet Count 308, Mean Platelet Volume 10.0, Immature Granulocyte % (Auto) 0, Neutrophils (%) (Auto) 59, Lymphocytes (%) (Auto) 25, Monocytes (%) (Auto) 12, Eosinophils (%) (Auto) 4, Basophils (%) (Auto) 0, Neutrophils # (Auto) 2.7, Lymphocytes # (Auto) 1.1, Monocytes # (Auto) 0.5, Eosinophils # (Auto) 0.2, Basophils # (Auto) 0.0, Immature Granulocyte # (Auto) 0.0, Sodium Level 139, Potassium Level 4.4, Chloride Level 106, Carbon Dioxide Level 22, Anion Gap 11, Blood Urea Nitrogen 24H, Creatinine 1.48H, Estimat Glomerular Filtration Rate 34, BUN/Creatinine Ratio 16, Glucose Level 75, Calcium Level 9.1, Corrected Calcium 9.3, Total Bilirubin 0.5, Aspartate Amino Transf (AST/SGOT) 12, Alanine Aminotransferase (ALT/SGPT) 8, Alkaline Phosphatase 58, Total Protein 6.4, Albumin 3.7 03/27/20 05:42: Glucometer 91 Procedures NAME: YADI REDDING [facility] REC#: [id number] PT STATUS: ADM IN : 1940 PHYSICIAN: ISABELLA FARIAS ADMIT DATE: 03/23/20/[facility] Draft Date of Exam:03/23/20 US CAROTID ROSALINDA COMPLETE [id number] PROCEDURE: US carotid duplex, bilateral. TECHNIQUE: Multiple real-time grayscale images were obtained over the carotid arteries in various projections, bilaterally. Additional spectral analysis and color Doppler duplex images were also obtained. INDICATION: CVA Parameters based on the consensus panel Velazquez-Scale and Doppler ultrasound criteria published April 2003, Radiology, Volume 229. DOPPLER (peak systolic velocity M/S Right Left CCA 0.63 0.60 ICA Proximal 0.43 0.36 ICA Mid 0.51 0.54 ICA Distal 0.51 0.59 RATIO 0.82 0.98 ECA 1.14 0.72 VERT 0.33 0.32 Normal antegrade flow within both vertebral arteries. Waveforms are normal. No significant plaque is seen. IMPRESSION: No hemodynamically significant stenosis of the bilateral internal carotid arteries by velocity and ratio criteria. Dictated on workstation # [id number] Dict: 03/23/20 1528 Trans: 03/23/20 1530 CVB [id number] Interpreted by: TIMBO PETERSEN DO Electronically signed by: A/P: Assessment: Syncope, near syncope of undetermined etiology Per MRI of the brain on 2019: Small punctate focus of restricted diffusion in the anterior medial aspect of the right frontal lobe with more faint areas of restricted diffusion in the left basal ganglia and left thalamus, which may represent foci of acute/subacute ischemia. No associated mass effect or hemorrhage is seen. - Management per Dr. Webster MPI of 02-21-[address] Underwood: Pharmacological stress test was negative for ischemia. Normal LV function with no wall motion abnormalities. Normal myocardial perfusion imaging during rest and stress. Echocardiogram of 02-21-[address] Khalid showed concentric LVH. LVEF 65-70%. Grade 1 diastolic dysfunction. PASP 25-30mmHg No hemodynamically significant stenosis of the bilateral internal carotid arteries per u/s of 03-23-2020 DM 2 HTN GERD Plan: Continue telemetry Consider ILR implant to eval for occult arrhythmia/bradyarrhythmia Orthostatic v/s Have already reduced antihypertensive regimen (stopped Norvasc) Monitor lab ISABELLA FARIAS Mar 24, 2020 10:37
--- NOTE | 2020-03-24 10:39 | NUR ---
CM/SS ADMISSION Patient was admitted to ARU directly from [facility] Emergency Department for closed head injury with LOC after presenting there for vertigo. Patient was OBS admit for syncope and collapse and OBS admit 03/20- due to backward fall off outdoor steps with closed head injury/scalp hematoma. Patient resides home alone and has been completely independent, including driving. She fully intends to return home, hopeful she can get relief from vertigo and subsequent fall risk. PCP: Dr. Sindhu Webster DO [place] [facility]: [facility] INSURANCE: Medicare, [email or web address] [facility] Supplement DME: Patient has never needed any assistive devices. BARRIERS TO DISCHARGE: No psychosocial barriers, patient's medical compromise is her only howie as it pertains to functional safety and daily independence. CONTACTS: Anderson Liao, Son [address] [place], [place] [address] Patient indicates she has on other children and any other contacts would be friends/acquaintances. Patient understands the purpose and process of weekly patient care conference and that her first review will be Sunday, March 29, 2020. She may be ready for discharge prior to that date, depending on her overall response to interventions.
--- NOTE | 2020-03-24 11:26 | ST Cognitive Linguistic Eval ---
Speech Evaluation-General Medical Diagnosis closed head injury with LOC Onset Date: Mar 20, 2020 Therapy Diagnosis Therapy Diagnosis: Cognitive-communication Referral Referring Physician: Dr. Webster Medical History Pertinent Medical History: DM, HTN, Renal Insufficiency Reviewed History: Yes Social History Current Living Status: Alone Speech PLF-Current Status Prior Level of Function Patient lives alone in her own home where she is independent for her daily needs. Subjective Patient was pleasant and cooperative with the cognitive assessment. Language Eval: Auditory Comprehends Simple Yes/No Ques: Functional Indent/Objects Multiple Yeung: Functional Ident/Pics in Multiple Yeung: Functional Follows 1-Step Commands: Functional Follows Complex Directions: Functional Follows General Conversations: Functional Language Eval: Verbal Language Completes Spontaneous Greeting: Functional Produces Auto, Serial Info: Functional Imitates Simple Words/Phrases: Functional Word Finding: Functional Requests Basic Needs: Functional States Basic Personal Info: Functional Expresses Complex Ideas: Functional Objective Cognitive Domain Attention: WNL Memory: WNL Problem Solving: Functional Executive Functions: WNL Visuospatial Skills: WNL Composite Severity Rating: WNL Clock Drawing Severity Rating: WNL Objective Formal/Standardized Tests [facility] Mental Status ([facility]) Results 28/30, within normal range of function Oral Motor/Speech Production Within Normal Limits Impression Patient is a pleasant 79 y/o female who was admitted to the ARU due to recent falls. Patient was given the UMS with a score of 28/30 obtained. This score is within the normal range of function and does not indicate a need for further ST services. Speech Patient Assess Expression of Ideas/Wants: Expression (4) Understanding Verbal Content: Understands (4) Brief Interview-Mental Status: Yes Repetition of Three Words: Three (3) Temporal Orientation: Year: Correct (3) Temporal Orientation: Month: Accurate within 5 days(2) Temporal Orientation: Day: Correct (1) Recall : Wear to say "Sock": Yes,after cueing (1) Recall : Color: Yes, no cue required (2) Recall : Bed: Yes, no cue required (2) Memory/Recall Ability: Current season, That he or she is in a hsp/hsp unit Speech-Plan Patient/Family Goals Patient/Family Goals: Patient plans on returning to her home upon discharge. Treatment Plan Speech Therapy Treatment Plan: Discontinue ST Treatment Duration: Mar 24, 2020 Frequency: 1 time per week Estimated Hrs Per Day: .5 hour per day Rehab Potential: Good Barriers to Learning: recent falls, age Pt/Family Agrees to Plan: Yes Safety Risks/Education Teaching Recipient: Patient Teaching Methods: Discussion Response to Teaching: Verbalize Understanding Education Topics Provided: Safety within her room and communication of wants/needs Time Speech Therapy Time In: 09:00 Speech Therapy Time Out: 09:30 Total Billed Time: 30 Billed Treatment Time 1, NORMA Ordoñez Mar 24, 2020 11:26
--- NOTE | 2020-03-24 11:43 | Occupational Ther Daily Note ---
OT Current Status-Daily Note Subjective Pt alert, laying in bed when ALVES entered. Pt agreed to therapy. No c/o pain reported. Mental Status/Objective Patient Orientation: Person, Place, Time, Situation Attachments: IV, Telemetry ADL-Treatment Pt declined shower, but agreed to change clothing. Pt was able to doff night gown by self. While standing, pt hiked underwear down hips, SBA. After set up, p t was able to don shirt by self. After set up, pt was able to thread lower body dressing through feet. While standing, pt hiked lower body dressing over hips, SBA. After set up, pt donned socks by self. Pt then stated she needed to use the restroom. Sit-stand from EOB to FWW, SBA. Pt then ambulated to bathroom using FWW with SBA. Transferred to toilet, SBA. Pt was able to complete toilet hygiene by self, with SBA. Pt then ambulated to sink using FWW with SBA. Pt completed oral hygiene while standing with SBA. Pt ambulated to gym using FWW, SBA. Therapy Code Descriptions/Definitions Functional [place] Measure: 0=Not Assessed/NA 4=Minimal Assistance 1=Total Assistance 5=Supervision or Setup 2=Maximal Assistance 6=Modified [place] 3=Moderate Assistance 7=Complete IndependenceSCALE: Activities may be completed with or without assistive devices. 9-Ahnejgbyik-gbxeywt completes the activity by him/herself with no assistance from a helper. 5-Set-up or Clean-up Assistance-helper sets up or cleans up; patient completes activity. [place] assists only prior to or following the activity. 4-Supervision or Touching Assistance-helper provides verbal cues and/or t ouching/steadying and/or contact guard assistance as patient completes activity. Assistance may be provided throughout the activity or intermittently. 3-Partial/Moderate Assistance-helper does LESS THAN HALF the effort. [place] lifts, holds or supports trunk or limbs, but provides less than half the effort. 2-Substantial/Maximal Assistance-helper does MORE THAN HALF the effort. [place] lifts or holds trunk or limbs and provides more than half the effort. 4-Oaamofwvg-ctmcmp does ALL the effort. Patient does none of the effort to complete the activity. Or, the assistance of 2 or more helpers is required for the patient to complete the activity. If activity was not attempted, code reason: 7-Patient Refused. 9-Not Applicable-not attempted and the patient did not perform the activity before the current illness, exacerbation or injury. 10-Not Attempted due to Environmental Limitations-(lack of equipment, weather restraints, etc.). 88-Not Attempted due to Medical Conditions or Safety Concerns. Oral Hygiene (QC): 4 Shower/Bathe Self (QC): 7 Upper Body Dressing (QC): 5 Lower Body Dressing (QC): 4 On/Off Footwear: 5 Toileting Hygiene (QC): 4 Toilet Transfer (QC): 4 Other Treatment Once in gym, pt participated in 15 mins of no resistance arm strengthening activity on arm bike to strengthen B UE for daily task. Pt required resting breaks to complete exercise. Pt then completed 2 sets x10 reps of 3 wrist flexion/extension exercises on inclined surface to increase ROM of hand for functional task. Pt required skilled instruction for exercises. Pt completed 4 sequencing task by matching different colored patterns to follow directions safe and functional ADL completion. Pt then ambulated back to room using FWW with close SBA due to pt stating she feels more wobbly. Pt transferred to EOB with close SBA. EOB-supine, independently. After therapy, pt laying in bed. Call light/phone in reach. All needs met. Education OT Patient Education: Exercise program Teaching Recipient: Patient Teaching Methods: Demonstration, Discussion Response to Teaching: Verbalize Understanding, Return Demonstration OT Short Term Goals Short Term Goals Time Frame: Mar 30, 2020 Shower/bathe self: 4 Upper body dressin Lower body dressin Putting on/taking off footwear: 4 OT Long-Term Goals Long-Term Goals Time Frame: Apr 14, 2020 Eating (QC): 6 Oral Hygiene (QC): 6 Toileting Hygiene (QC): 6 Shower/Bathe Self (QC): 6 Upper Body Dressing (QC): 6 Lower Body Dressing (QC): 6 On/Off Footwear (QC): 6 Additional Goals: 1-Demonstrate ADL Tasks, 2-Verbalize Understanding, 3- ImproveStrength/Alicia 1=Demonstrate adherence to instructed precautions during ADL tasks. 2=Patient will verbalize/demonstrate understanding of assistive devices/modifications for ADL. 3=Patient will improve strength/tolerance for activity to enable patient to perform ADL's. OT Education/Plan Problem List/Assessment Assessment: Decreased Activ Tolerance, Decreased Safety Aware, Impaired Coordination, Impaired I ADL's, Impaired Self-Care Skills Discharge Recommendations Plan/Recommendations: Continue POC Treatment Plan/Plan of Care Patient would benefit from OT for education, treatment and training to promote independence in ADL's, mobility, safety and/or upper extremity function for ADL's. Plan of Care: ADL Retraining, Functional Mobility, Group Exercise/Act as Ind, UE Funct Exercise/Act, UE Neuromus Re-Ed/Coord Treatment Duration: Apr 14, 2020 Frequency: At least 5 of 7 days/Wk (IRF) Estimated Hrs Per Day: 1.5 hours per day Agreement: Yes Rehab Potential: Good Time/GCodes Start Time: 10:15 Stop Time: 11:45 Total Time Billed (hr/min): 90 Billed Treatment Time 1 visit-ADL (15 ) FA 2 (30) EX 3(45) GERI OROZCO Mar 24, 2020 11:43
--- NOTE | 2020-03-24 14:27 | Physical Therapy Daily Note ---
PT Daily Note-Current Subjective Pt reports intermittent vertigo with position change, sit to stand, and rolling in bed. Symptoms began 1-2 weeks ago. Mental Status Patient Orientation: Person, Place, Time, Situation Transfers SCALE: Activities may be completed with or without assistive devices. 6-Jsvpkdrmhn-ymeuert completes the activity by him/herself with no assistance from a helper. 5-Set-up or Clean-up Assistance-helper sets up or cleans up; patient completes activity. [place] assists only prior to or following the activity. 4-Supervision or Touching Assistance-helper provides verbal cues and/or touching/steadying and/or contact guard assistance as patient completes activity. Assistance may be provided throughout the activity or intermittently. 3-Partial/Moderate Assistance-helper does LESS THAN HALF the effort. [place] lifts, holds or supports trunk or limbs, but provides less than half the effort. 2-Substantial/Maximal Assistance-helper does MORE THAN HALF the effort. [place] lifts or holds trunk or limbs and provides more than half the effort. 0-Fqribecbt-zhyyoz does ALL the effort. Patient does none of the effort to complete the activity. Or, the assistance of 2 or more helpers is required for the patient to complete the activity. If activity was not attempted, code reason: 7-Patient Refused. 9-Not Applicable-not attempted and the patient did not perform the activity before the current illness, exacerbation or injury. 10-Not Attempted due to Environmental Limitations-(lack of equipment, weather restraints, etc.). 88-Not Attempted due to Medical Conditions or Safety Concerns. Roll Left & Right (QC): 5 Sit to Lying (QC): 5 Lying to Sitting/Side of Bed(Q: 5 Sit to Stand (QC): 5 Chair/Dvw-kn-Xhsal Xfer(QC): 5 Gait Training Does the Patient Walk?: Yes Neuromuscular Pt evaluated for intermittent vertigo. Normal VOR, horizontal Hallpike, and extended Hallpike. Asymptomatic with supine to sit with assist. Able to elicit symptoms with sit to stand, with no nystagmus elicited during any testing. Pt reported feeling moderately dizzy during supine with (R) head rotation. Vertebral artery testing did not reveal any change in cognition or speech, but elicited vertigo. (B) LE sensation is intact. Treatments Reviewed the appropriate exercises for vestibular habituation training to improve movement tolerance and preparatory activity for sit to stand to limit orthostatic hypotension. Assessment Current Status: Good Progress Pt did not exhibit any abnormal eye movement during vestibular testing. She did however report vertigo with (R) vertebral artery testing and sit to stand. Pt to benefit from habituation treatment for vestibular rehab. PT Short Term Goals Short Term Goals Time Frame: Mar 30, 2020 Sit to lyin Lying to sitting on side of be: 4 Walk 150 feet: 4 4 steps: 4 PT Senior Living Goals Senior Living Goals PT Senior Living Goals Time Frame: Apr 10, 2020 Roll Left & Right (QC): 6 Sit to Lying (QC): 6 Lying-Sitting on Side/Bed(QC): 6 Sit to Stand (QC): 6 Chair/Tso-th-Yvrgt Xfer(QC): 6 Toilet Transfer (QC): 6 Car Transfer (QC): 6 Does the Patient Walk: Yes Walk 10 feet (QC): 6 Walk 50ft with 2 Turns (QC): 6 Walk 150 ft (QC): 6 Walking 10ft on Uneven Surface: 6 1 Step (curb) (QC): 6 4 Steps (QC): 6 12 Steps (QC): 5 Picking up an Object (QC): 5 Does the Pt use WC or Scooter?: No Wheel 50 feet with 2 turns (QC: 9 Wheel 150 feet: 9 PT Plan Treatment/Plan Treatment Plan: Continue Plan of Care Treatment Plan: Bed Mobility, Education, Functional Activity Alicia, Functional Strength, Group Therapy, Gait, Safety, Therapeutic Exercise, Transfers Treatment Duration: Apr 10, 2020 Frequency: At least 5 of 7 days/Wk (IRF) Estimated Hrs Per Day: 1.5 hours per day Patient and/or Family Agrees t: Yes Time/GCodes Time In: 1400 Time Out: 1415 Total Billed Treatment Time: 15 Total Billed Treatment 1, nm 15 ELIJAH HAND PT Mar 24, 2020 14:27
[2020-03-24 14:37] VITALS: BP 131/60
[2020-03-24 14:40] VITALS: BP 131/60
[2020-03-24 14:43] VITALS: BP_SYST 121; BP_SYST 129; BP_DIAS 50; BP_DIAS 60
--- NOTE | 2020-03-24 15:59 | NUR ---
[employer] and is on prayer list. Test Operator offered prayer and blessing.
[2020-03-24 16:00] VITALS: BP 144/68
--- NOTE | 2020-03-24 16:00 | NUR ---
"RD ASSESSMENT PMHx: DM; HTN; HLP PT INTERACTION: Pt was awake and pleasant during nutrition assessment. Pt states current appetite is good. Note avg PO intake 81% x1d, per chart review. Pt states following a regular diet at home, and has no issues with chewing/swallowing food. Pt states no recent issues with nausea, vomiting, or diarrhea. Pt states some recent issues with constipation, and that she is unsure of her last BM. Note no BM has been recorded, and pt currently on bowel regimen of colace BID; senna BID; and miralax BID, per chart review. Pt states no recent wt changes. Note recent 8# wt loss x1mon, per chart review. Pt states current DM management is pretty good. Note unable to determine recent HbA1c, per chart review. ABNORMAL NUTRITION-RELATED LAB VALUES LOW: Pro 6.3 HIGH: BNU 22; cr 1.60 Est. kcal needs: 1350 kcal | 20 kcal/kg Est. Pro needs: 67 g Pro | 1.0 g Pro/kg PES STATEMENT: Given current appetite and PO intake, no nutrition diagnosis at this time (NO-1.1) INTERVENTION: Continue with current diet order of CHO 60g/m 3snack diet. Will continue to follow and reassess as pt needs, intake, and status change. Dot Torre, MS RD LD"
[2020-03-25 06:00] VITALS: BP 135/61
[2020-03-25] MEDS: inSUlin ASPART (NovoLOG) 1 UNIT/0.01 ML (CHARGE PER UNIT) SC SCH ×4 (06:00→21:17)
--- NOTE | 2020-03-25 06:49 | PM&R Progress Note ---
Subjective HPI/CC On Admission Date Seen by Provider: Mar 25, 2020 Time Seen by Provider: 12:00 Subjective/Events-last exam 03/25/20: Vestibular exercises provided by Jacob ABREU but it does not appear that her dizziness is from that source Sugars are a bit high but no evidence of hypoglycemia as the cause of her falls and syncope No pain reported Cardiology monitoring patient Telemetry reveals NSR no pauses of any other abnormality to cause falls No pain reported MRI reviewed Not as dizzy today Working on inner ear dysfunction today with PT Checked meds and labs Conferred with RN reviewed therapy notes Review of Systems General: Fatigue, Malaise Neurological: Weakness Objective Exam Vital Signs Vital Signs Date Time Temp Pulse Resp B/P (MAP) Pulse Ox O2 Delivery O2 Flow Rate FiO2 03/26/20 12:49 69 03/26/20 08:27 Room Air 03/26/20 06:00 37.0 18 157/72 (100) 96 Capillary Refill : Less Than 3 Seconds General Appearance: No Apparent Distress, WD/WN, Chronically ill HEENT: PERRL/EOMI, Normal ENT Inspection, Pharynx Normal Neck: Full Range of Motion, Normal Inspection, Non Tender, Supple, Carotid Bruit Respiratory: Chest Non Tender, Lungs Clear, Normal Breath Sounds, No Accessory Muscle Use, No Respiratory Distress Cardiovascular: Regular Rate, Rhythm, No Edema, No Gallop, No JVD, No Murmur, Normal Peripheral Pulses Gastrointestinal: Normal Bowel Sounds, No Organomegaly, No Pulsatile Mass, Non Tender, Soft Back: Normal Inspection, No CVA Tenderness, No Vertebral Tenderness Extremity: Normal Capillary Refill, Normal Inspection, Normal Range of Motion, Non Tender, No Calf Tenderness, No Pedal Edema Neurologic/Psychiatric: Alert, Oriented x3, No Motor/Sensory Deficits, Normal Mood/Affect, [employer] II-XII Norm as Tested, Abnormal Gait, Motor Weakness (generalized legs) Skin: Normal Color, Warm/Dry Lymphatic: No Adenopathy Results/Procedures Lab Patient resulted labs reviewed. FIM Transfers Therapy Code Descriptions/Definitions Functional [place] Measure: 0=Not Assessed/NA 4=Minimal Assistance 1=Total Assistance 5=Supervision or Setup 2=Maximal Assistance 6=Modified [place] 3=Moderate Assistance 7=Complete IndependenceSCALE: Activities may be completed with or without assistive devices. 2-Smuhvnpvmz-gpaodne completes the activity by him/herself with no assistance from a helper. 5-Set-up or Clean-up Assistance-helper sets up or cleans up; patient completes activity. [place] assists only prior to or following the activity. 4-Supervision or Touching Assistance-helper provides verbal cues and/or touching/steadying and/or contact guard assistance as patient completes activity. Assistance may be provided throughout the activity or intermittently. 3-Partial/Moderate Assistance-helper does LESS THAN HALF the effort. [place] lifts, holds or supports trunk or limbs, but provides less than half the effort. 2-Substantial/Maximal Assistance-helper does MORE THAN HALF the effort. [place] lifts or holds trunk or limbs and provides more than half the effort. 7-Arjydbkko-rksbkp does ALL the effort. Patient does none of the effort to complete the activity. Or, the assistance of 2 or more helpers is required for the patient to complete the activity. If activity was not attempted, code reason: 7-Patient Refused. 9-Not Applicable-not attempted and the patient did not perform the activity bef ore the current illness, exacerbation or injury. 10-Not Attempted due to Environmental Limitations-(lack of equipment, weather r estraints, etc.). 88-Not Attempted due to Medical Conditions or Safety Concerns. Roll Left to Right (QC): 5 Sit to Lying (QC): 5 Sit to Stand (QC): 5 Chair/Fhr-kq-Vdhxn Xfer(QC): 5 Car Transfer (QC): 4 Gait Training Does the Patient Walk?: Yes Walk 10 feet (QC): 4 Walk 50 ft with 2 Turns(QC): 4 Walk 150 ft (QC): 4 Walking 10ft/uneven surface-QC: 3 Gait Persons Needed: 1 Gait Assistive Device: FWW Wheelchair Training Does the Pt Use a Wheelchair?: No Wheel 50 ft with 2 turns (QC): 9 Wheel 150 ft (QC): 9 Stair Training 1 Step (curb) (QC): 3 4 Steps (QC): 3 12 Steps (QC): 88 Balance Picking up an Object (QC): 3 ADL-Treatment Eating (QC): 6 Oral Hygiene (QC): 4 Bathing Location: L Arm, R Arm, L Upper Leg, R Upper Leg, L Lower Leg (including foot), R Lower Leg (including foot), Chest, Abdomen, Buttocks (SBA), Perineal Area Shower/Bathe Self (QC): 7 Upper Body Dressing (QC): 5 Lower Body Dressing (QC): 4 On/Off Footwear (QC): 5 Toileting Hygiene (QC): 4 Toilet Transfer (QC): 4 Assessment/Plan Assessment and Plan Assess & Plan/Chief Complaint Assessment: Closed head injury with LOC now with recurrent falls Dizziness CRI DM HTN HLP Plan: MRI IRF protocol Home meds Fall risk prevention 03/24/20: Inner ear dysfunction exercises Monitor Tely for pauses Monitor closely 03/25/20: Monitor sugar Monitor for falls Strengthen Dr Becerril Nephrology will be seen in 07/2020 (1) LOC (loss of consciousness) (2) Closed head injury Status: Acute (3) Diabetes mellitus (4) Renal insufficiency (5) Hyperlipemia (6) Hypertension (7) Scalp hematoma Status: Acute (8) Arm paresthesia, right Status: Acute (9) Vertigo Status: Acute (10) Concussion Status: Acute (11) Syncope and collapse Status: Acute MADI MCDANIELS DO Mar 25, 2020 06:49
--- NOTE | 2020-03-25 10:15 | Physical Therapy Daily Note ---
PT Daily Note-Current Subjective Pt. agrees to Rx but is still so sleepy. Pain Location: No Pain Reported Appearance groggy Mental Status Patient Orientation: Person, Place Attachments: Other-See Comments (telemetry) Transfers SCALE: Activities may be completed with or without assistive devices. 9-Ymdgixzfqv-fyfputr completes the activity by him/herself with no assistance from a helper. 5-Set-up or Clean-up Assistance-helper sets up or cleans up; patient completes activity. [place] assists only prior to or following the activity. 4-Supervision or Touching Assistance-helper provides verbal cues and/or touching/steadying and/or contact guard assistance as patient completes activity. Assistance may be provided throughout the activity or intermittently. 3-Partial/Moderate Assistance-helper does LESS THAN HALF the effort. [place] lifts, holds or supports trunk or limbs, but provides less than half the effort. 2-Substantial/Maximal Assistance-helper does MORE THAN HALF the effort. [place] lifts or holds trunk or limbs and provides more than half the effort. 0-Cpkczilvs-tipepr does ALL the effort. Patient does none of the effort to complete the activity. Or, the assistance of 2 or more helpers is required for the patient to complete the activity. If activity was not attempted, code reason: 7-Patient Refused. 9-Not Applicable-not attempted and the patient did not perform the activity before the current illness, exacerbation or injury. 10-Not Attempted due to Environmental Limitations-(lack of equipment, weather restraints, etc.). 88-Not Attempted due to Medical Conditions or Safety Concerns. in out bed and sit to stand all SBA to CGA, no LOB Gait Training Does the Patient Walk?: Yes Gait Assistive Device: FWW 25ftx2 FWW CGA, no LOB, many turns in tight area Exercises Seated Therapy Exercises: Ankle pumps, Sit to stand, Long arc quads, Hip flex ion, Hip abd/add Seated Reps: 12 Treatments pt. dressed sitting EOB, this ANAESTHETIC TECHNICIAN retrieved clothing and instructed in sequence, no LOB, assist only for bra hook, pt. up in recliner for brkfst after Rx, stuart at hand Assessment Current Status: Good Progress PT Short Term Goals Short Term Goals Time Frame: Mar 30, 2020 Sit to lyin Lying to sitting on side of be: 4 Walk 150 feet: 4 4 steps: 4 PT Longterm Goals Longterm Goals PT [employer] [place] Goals Time Frame: Apr 10, 2020 Roll Left & Right (QC): 6 Sit to Lying (QC): 6 Lying-Sitting on Side/Bed(QC): 6 Sit to Stand (QC): 6 Chair/Nif-mv-Mvmep Xfer(QC): 6 Toilet Transfer (QC): 6 Car Transfer (QC): 6 Does the Patient Walk: Yes Walk 10 feet (QC): 6 Walk 50ft with 2 Turns (QC): 6 Walk 150 ft (QC): 6 Walking 10ft on Uneven Surface: 6 1 Step (curb) (QC): 6 4 Steps (QC): 6 12 Steps (QC): 5 Picking up an Object (QC): 5 Does the Pt use WC or Scooter?: No Wheel 50 feet with 2 turns (QC: 9 Wheel 150 feet: 9 PT Plan Treatment/Plan Treatment Plan: Continue Plan of Care Treatment Plan: Bed Mobility, Education, Functional Activity Alicia, Functional Strength, Group Therapy, Gait, Safety, Therapeutic Exercise, Transfers Treatment Duration: Apr 10, 2020 Frequency: At least 5 of 7 days/Wk (IRF) Estimated Hrs Per Day: 1.5 hours per day Patient and/or Family Agrees t: Yes Safety Risks/Education Patient Education: Gait Training, Transfer Techniques, Correct Positioning, Disease Process, Safety Issues Teaching Methods: Demonstration, Discussion Response to Teaching: Verbalize Understanding, Return Demonstration, Reinforcement Needed Time/GCodes Time In: 920 Time Out: 940 Total Billed Treatment Time: 20 Total Billed Treatment 1,FA20m GRIS PETERSEN PTA Mar 25, 2020 10:15
[2020-03-25 10:25] VITALS: BP_SYST 118; BP_DIAS 57; BP_DIAS 58
[2020-03-25 10:26] VITALS: BP 118/57
[2020-03-25] MEDS: LORATADINE (CLARITIN) 10 MG TAB PO SCH (10:33)
[2020-03-25] MEDS: VITAMIN D3 10 MCG (400 UNITS) TABLET PO SCH (10:33)
[2020-03-25] MEDS: CARVEDILOL 12.5 MG (COREG) TABLET PO SCH ×2 (10:33→21:17)
[2020-03-25] MEDS: LOSARTAN 25 MG (COZAAR) TAB PO SCH (10:33)
[2020-03-25] MEDS: PANTOPRAZOLE 40 MG (PROTONIX) TAB PO SCH (10:33)
[2020-03-25] MEDS: SENNA W/DOCUSATE (SENOKOT S) TABLET PO SCH ×2 (10:33→21:16)
[2020-03-25] MEDS: glipiZIDE XL 10 MG (GLUCOTROL XL) TAB PO SCH ×2 (10:34→21:16)
[2020-03-25] MEDS: polyethylene glycoL POWDER 17 GM (MIRALAX) PACK PO SCH ×2 (10:34→21:30)
[2020-03-25] MEDS: ROSUVASTATIN 5 MG (CRESTOR) TABLET PO SCH (10:34)
[2020-03-25] MEDS: DOCUSATE SODIUM 100 MG (COLACE) CAP PO SCH ×2 (10:34→21:17)
[2020-03-25] MEDS: VITAMIN E 180 MG (400 UNITS) CAP PO SCH (10:34)
--- NOTE | 2020-03-25 16:03 | Progress Note - Cardiology ---
Cardiology SOAP Progress Note Subjective: No cp or palp No syncope since admission No shortness of breath Weakness and malaise are improving No n/v/d No focal weakness Objective: I&O/Vital Signs 03/25/20 03/25/20 03/25/20 03/25/20 06:00 07:00 08:58 10:25 Temp 36.6 Pulse 77 72 Resp 20 B/P (MAP) 135/61 (85) 118/58 (78) 118/57 (77) Pulse Ox 94 O2 Delivery Room Air 03/25/20 03/25/20 03/25/20 10:25 10:26 12:35 Pulse 75 82 72 Resp 20 B/P (MAP) 118/58 (78) 118/57 (77) Pulse Ox 96 O2 Delivery Room Air 03/25/20 00:00 Intake Total 1200 ml Balance 1200 ml Constitutional: AAO x 3, well-developed, well-nourished Respiratory: chest expansion is symmetric, chest is bilaterally symmetric, lungs clear to auscultation Cardiovascular: regular rate-rhythm, S1 and S2 Gastrointestional: soft, round, audible bowel sounds Extremities: no lower extremity edema bilateral Neurologic/Psychiatric: grossly intact Skin: other Results/Procedures: Labs Laboratory Tests 03/24/20 16:09: Glucometer 104 03/24/20 20:06: Glucometer 285H 03/25/20 05:54: Glucometer 159H 03/25/20 11:49: Glucometer 266H Laboratory Tests 03/24/20 06:30 A/P: Assessment: Syncope, near syncope of undetermined etiology Per MRI of the brain on 2019: Small punctate focus of restricted diffusion in the anterior medial aspect of the right frontal lobe with more faint areas of restricted diffusion in the left basal ganglia and left thalamus, which may represent foci of acute/subacute ischemia. No associated mass effect or hemorrhage is seen. - Management per Dr. Webster MPI of 02-21-[address] Underwood: Pharmacological stress test was negative for ischemia. Normal LV function with no wall motion abnormalities. Normal myocardial perfusion imaging during rest and stress. Echocardiogram of 02-21-[address] Underwood showed concentric LVH. LVEF 65-70%. Grade 1 diastolic dysfunction. PASP 25-30mmHg No hemodynamically significant stenosis of the bilateral internal carotid arteries per u/s of 03-23-2020 DM 2 HTN GERD Plan: Continue telemetry ILR implant on 03/28/20, if no significant arrhythmia detected on tele until then Monitor labs from time to time JANES CID MD [facility] Mar 25, 2020 16:03
[2020-03-25 17:50] VITALS: BP 136/63
[2020-03-26 06:00] VITALS: BP 157/72
--- NOTE | 2020-03-26 06:28 | PM&R Progress Note ---
Subjective HPI/CC On Admission Date Seen by Provider: Mar 26, 2020 Time Seen by Provider: 12:30 Subjective/Events-last exam 03/26/20: Slept until 1100 today BM yesterday after laxatives Took laxatives again today No pain reported Cardiology monitoring patient Telemetry reveals NSR no pauses of any other abnormality to cause falls No pain reported MRI reviewed Not as dizzy today Working on inner ear dysfunction today with PT Checked meds and labs Conferred with RN reviewed therapy notes Review of Systems General: Fatigue, Malaise Neurological: Weakness Objective Exam Vital Signs Vital Signs Date Time Temp Pulse Resp B/P (MAP) Pulse Ox O2 Delivery O2 Flow Rate FiO2 03/26/20 16:51 36.0 69 18 136/62 (86) 96 Room Air Capillary Refill : Less Than 3 Seconds General Appearance: No Apparent Distress, WD/WN, Chronically ill HEENT: PERRL/EOMI, Normal ENT Inspection, Pharynx Normal Neck: Full Range of Motion, Normal Inspection, Non Tender, Supple, Carotid Bruit Respiratory: Chest Non Tender, Lungs Clear, Normal Breath Sounds, No Accessory Muscle Use, No Respiratory Distress Cardiovascular: Regular Rate, Rhythm, No Edema, No Gallop, No JVD, No Murmur, Normal Peripheral Pulses Gastrointestinal: Normal Bowel Sounds, No Organomegaly, No Pulsatile Mass, Non Tender, Soft Back: Normal Inspection, No CVA Tenderness, No Vertebral Tenderness Extremity: Normal Capillary Refill, Normal Inspection, Normal Range of Motion, Non Tender, No Calf Tenderness, No Pedal Edema Neurologic/Psychiatric: Alert, Oriented x3, No Motor/Sensory Deficits, Normal Mood/Affect, 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 FIM Transfers Therapy Code Descriptions/Definitions Functional [place] Measure: 0=Not Assessed/NA 4=Minimal Assistance 1=Total Assistance 5=Supervision or Setup 2=Maximal Assistance 6=Modified [place] 3=Moderate Assistance 7=Complete IndependenceSCALE: Activities may be completed with or without assistive devices. 5-Gmdkjjbmlj-wyllcym completes the activity by him/herself with no assistance from a helper. 5-Set-up or Clean-up Assistance-helper sets up or cleans up; patient completes activity. [place] assists only prior to or following the activity. 4-Supervision or Touching Assistance-helper provides verbal cues and/or touching/steadying and/or contact guard assistance as patient completes act ivity. Assistance may be provided throughout the activity or intermittently. 3-Partial/Moderate Assistance-helper does LESS THAN HALF the effort. [place] lifts, holds or supports trunk or limbs, but provides less than half the effort. 2-Substantial/Maximal Assistance-helper does MORE THAN HALF the effort. [place] lifts or holds trunk or limbs and provides more than half the effort. 2-Ybymdfkmc-xbkunj does ALL the effort. Patient does none of the effort to complete the activity. Or, the assistance of 2 or more helpers is required for the patient to complete the activity. If activity was not attempted, code reason: 7-Patient Refused. 9-Not Applicable-not attempted and the patient did not perform the activity before the current illness, exacerbation or injury. 10-Not Attempted due to Environmental Limitations-(lack of equipment, weather restraints, etc.). 88-Not Attempted due to Medical Conditions or Safety Concerns. Roll Left to Right (QC): 5 Sit to Lying (QC): 5 Sit to Stand (QC): 5 Chair/Spi-ls-Xkgbz Xfer(QC): 5 Car Transfer (QC): 4 Gait Training Does the Patient Walk?: Yes Walk 10 feet (QC): 4 Walk 50 ft with 2 Turns(QC): 4 Walk 150 ft (QC): 4 Walking 10ft/uneven surface-QC: 3 Gait Persons Needed: 1 Gait Assistive Device: FWW Wheelchair Training Does the Pt Use a Wheelchair?: No Wheel 50 ft with 2 turns (QC): 9 Wheel 150 ft (QC): 9 Stair Training 1 Step (curb) (QC): 3 4 Steps (QC): 3 12 Steps (QC): 88 Balance Picking up an Object (QC): 3 ADL-Treatment Eating (QC): 6 Oral Hygiene (QC): 4 Bathing Location: L Arm, R Arm, L Upper Leg, R Upper Leg, L Lower Leg (including foot), R Lower Leg (including foot), Chest, Abdomen, Buttocks (SBA), Perineal Area Shower/Bathe Self (QC): 7 Upper Body Dressing (QC): 5 Lower Body Dressing (QC): 4 On/Off Footwear (QC): 5 Toileting Hygiene (QC): 4 Toilet Transfer (QC): 4 Assessment/Plan Assessment and Plan Assess & Plan/Chief Complaint Assessment: Closed head injury with LOC now with recurrent falls Dizziness CRI DM HTN HLP Plan: MRI IRF protocol Home meds Fall risk prevention 03/24/20: Inner ear dysfunction exercises Monitor Tely for pauses Monitor closely 03/26/20: Doing very well No dizziness No falls (1) LOC (loss of consciousness) (2) Closed head injury Status: Acute (3) Diabetes mellitus (4) Renal insufficiency (5) Hyperlipemia (6) Hypertension (7) Scalp hematoma Status: Acute (8) Arm paresthesia, right Status: Acute (9) Vertigo Status: Acute (10) Concussion Status: Acute (11) Syncope and collapse Status: Acute MADI MCDANIELS DO Mar 26, 2020 06:28
[2020-03-26] MEDS: inSUlin ASPART (NovoLOG) 1 UNIT/0.01 ML (CHARGE PER UNIT) SC SCH ×4 (08:37→21:01)
[2020-03-26] MEDS: LOSARTAN 25 MG (COZAAR) TAB PO SCH (09:50)
[2020-03-26] MEDS: glipiZIDE XL 10 MG (GLUCOTROL XL) TAB PO SCH ×2 (09:50→21:00)
[2020-03-26] MEDS: DOCUSATE SODIUM 100 MG (COLACE) CAP PO SCH ×2 (09:51→21:01)
[2020-03-26] MEDS: ROSUVASTATIN 5 MG (CRESTOR) TABLET PO SCH (09:51)
[2020-03-26] MEDS: VITAMIN E 180 MG (400 UNITS) CAP PO SCH (09:51)
[2020-03-26] MEDS: VITAMIN D3 10 MCG (400 UNITS) TABLET PO SCH (09:51)
[2020-03-26] MEDS: PANTOPRAZOLE 40 MG (PROTONIX) TAB PO SCH (09:51)
[2020-03-26] MEDS: polyethylene glycoL POWDER 17 GM (MIRALAX) PACK PO SCH ×3 (09:51→21:00)
[2020-03-26] MEDS: LORATADINE (CLARITIN) 10 MG TAB PO SCH (09:51)
[2020-03-26] MEDS: SENNA W/DOCUSATE (SENOKOT S) TABLET PO SCH ×2 (09:51→21:00)
[2020-03-26] MEDS: CARVEDILOL 12.5 MG (COREG) TABLET PO SCH ×2 (09:52→21:00)
[2020-03-26 16:51] VITALS: BP 136/62
[2020-03-27 06:00] VITALS: BP 140/65
[2020-03-27] MEDS: inSUlin ASPART (NovoLOG) 1 UNIT/0.01 ML (CHARGE PER UNIT) SC SCH ×4 (06:00→20:34)
[2020-03-27 06:43] LABS: BASOPHILS % (AUTO) 0 % (0-10); EOSINOPHILS # (AUTO) 0.2 10^3/uL (0.0-0.3); EOSINOPHILS % (AUTO) 4 % (0-10); HEMATOCRIT 26 % (35-52); HEMOGLOBIN 8.5 g/dL (11.5-16.0); LYMPHOCYTES # (AUTO) 1.1 10^3/uL (1.0-4.0); LYMPHOCYTES % (AUTO) 25 % (12-44); MEAN CORPUSCULAR HEMOGLOBIN 29 pg (25-34); MEAN CORPUSCULAR HGB CONC 32 g/dL (32-36); MEAN CORPUSCULAR VOLUME 89 fL (80-99); MONOCYTES # (AUTO) 0.5 10^3/uL (0.0-1.0); MONOCYTES % (AUTO) 12 % (0-12); NEUTROPHILS # (AUTO) 2.7 10^3/uL (1.8-7.8); NEUTROPHILS % (AUTO) 59 % (42-75); PLATELET COUNT 308 10^3/uL (130-400); WHITE BLOOD COUNT 4.6 10^3/uL (4.3-11.0)
[2020-03-27 06:45] LABS: ALBUMIN 3.7 GM/DL (3.2-4.5)
[2020-03-27 06:46] LABS: POTASSIUM 4.4 MMOL/L (3.6-5.0)
[2020-03-27 06:47] LABS: CALCIUM 9.1 MG/DL (8.5-10.1)
[2020-03-27 06:48] LABS: TOTAL PROTEIN 6.4 GM/DL (6.4-8.2)
[2020-03-27 06:50] LABS: BILIRUBIN,TOTAL 0.5 MG/DL (0.1-1.0)
[2020-03-27 06:52] LABS: CREATININE SERUM 1.48 MG/DL (0.60-1.30)
--- NOTE | 2020-03-27 07:54 | PM&R Progress Note ---
Subjective HPI/CC On Admission Date Seen by Provider: Mar 27, 2020 Time Seen by Provider: 10:00 Subjective/Events-last exam 03/27/20: Creatinine 1.48 Hgb 8.5 Not dizzy or having a headache today Walker used and doing pretty well Bowels moving pretty well 03/26/20: Slept until 1100 today BM yesterday after laxatives Took laxatives again today No pain reported Cardiology monitoring patient Telemetry reveals NSR no pauses of any other abnormality to cause falls No pain reported MRI reviewed Not as dizzy today Working on inner ear dysfunction today with PT Checked meds and labs Conferred with RN reviewed therapy notes Review of Systems General: Fatigue, Malaise Neurological: Weakness Objective Exam Vital Signs Vital Signs Date Time Temp Pulse Resp B/P (MAP) Pulse Ox O2 Delivery O2 Flow Rate FiO2 03/27/20 19:00 77 03/27/20 17:17 36.7 16 149/67 (94) 96 Room Air Capillary Refill : Less Than 3 Seconds General Appearance: No Apparent Distress, WD/WN, Chronically ill HEENT: PERRL/EOMI, Normal ENT Inspection, Pharynx Normal Neck: Full Range of Motion, Normal Inspection, Non Tender, Supple, Carotid Bruit Respiratory: Chest Non Tender, Lungs Clear, Normal Breath Sounds, No Accessory Muscle Use, No Respiratory Distress Cardiovascular: Regular Rate, Rhythm, No Edema, No Gallop, No JVD, No Murmur, Normal Peripheral Pulses Gastrointestinal: Normal Bowel Sounds, No Organomegaly, No Pulsatile Mass, Non Tender, Soft Back: Normal Inspection, No CVA Tenderness, No Vertebral Tenderness Extremity: Normal Capillary Refill, Normal Inspection, Normal Range of Motion, Non Tender, No Calf Tenderness, No Pedal Edema Neurologic/Psychiatric: Alert, Oriented x3, No Motor/Sensory Deficits, Normal Mood/Affect, 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 FIM Transfers Therapy Code Descriptions/Definitions Functional [place] Measure: 0=Not Assessed/NA 4=Minimal Assistance 1=Total Assistance 5=Supervision or Setup 2=Maximal Assistance 6=Modified [place] 3=Moderate Assistance 7=Complete IndependenceSCALE: Activities may be completed with or without assistive devices. 1-Vfgtipssft-blazfzm completes the activity by him/herself with no assistance from a helper. 5-Set-up or Clean-up Assistance-helper sets up or cleans up; patient completes activity. [place] assists only prior to or following the activity. 4-Supervision or Touching Assistance-helper provides verbal cues and/or touching/steadying and/or contact guard assistance as patient completes activity. Assistance may be provided throughout the activity or intermittently. 3-Partial/Moderate Assistance-helper does LESS THAN HALF the effort. [place] lifts, holds or supports trunk or limbs, but provides less than half the effort. 2-Substantial/Maximal Assistance-helper does MORE THAN HALF the effort. [place] lifts or holds trunk or limbs and provides more than half the effort. 8-Jdcjbszax-bagyyb does ALL the effort. Patient does none of the effort to complete the activity. Or, the assistance of 2 or more helpers is required for the patient to complete the activity. If activity was not attempted, code reason: 7-Patient Refused. 9-Not Applicable-not attempted and the patient did not perform the activity before the current illness, exacerbation or injury. 10-Not Attempted due to Environmental Limitations-(lack of equipment, weather restraints, etc.). 88-Not Attempted due to Medical Conditions or Safety Concerns. Roll Left to Right (QC): 5 Sit to Lying (QC): 5 Sit to Stand (QC): 5 Chair/Eog-pw-Okovp Xfer(QC): 5 Car Transfer (QC): 4 Gait Training Does the Patient Walk?: Yes Walk 10 feet (QC): 4 Walk 50 ft with 2 Turns(QC): 4 Walk 150 ft (QC): 4 Walking 10ft/uneven surface-QC: 3 Gait Persons Needed: 1 Gait Assistive Device: FWW Wheelchair Training Does the Pt Use a Wheelchair?: No Wheel 50 ft with 2 turns (QC): 9 Wheel 150 ft (QC): 9 Stair Training 1 Step (curb) (QC): 3 4 Steps (QC): 3 12 Steps (QC): 88 Balance Picking up an Object (QC): 3 ADL-Treatment Eating (QC): 6 Oral Hygiene (QC): 4 Bathing Location: L Arm, R Arm, L Upper Leg, R Upper Leg, L Lower Leg ( including foot), R Lower Leg (including foot), Chest, Abdomen, Buttocks (SBA), Perineal Area Shower/Bathe Self (QC): 7 Upper Body Dressing (QC): 5 Lower Body Dressing (QC): 4 On/Off Footwear (QC): 5 Toileting Hygiene (QC): 4 Toilet Transfer (QC): 4 Assessment/Plan Assessment and Plan Assess & Plan/Chief Complaint Assessment: Closed head injury with LOC now with recurrent falls Dizziness CRI DM HTN HLP Anemia Plan: MRI IRF protocol Home meds Fall risk prevention 03/24/20: Inner ear dysfunction exercises Monitor Tely for pauses Monitor closely 03/26/20: Doing very well No dizziness No falls 03/27/20: Monitor dizziness and headache Use walker for ambulation to prevent falls Check iron level (1) LOC (loss of consciousness) (2) Closed head injury Status: Acute (3) Diabetes mellitus (4) Renal insufficiency (5) Hyperlipemia (6) Hypertension (7) Scalp hematoma Status: Acute (8) Arm paresthesia, right Status: Acute (9) Vertigo Status: Acute (10) Concussion Status: Acute (11) Syncope and collapse Status: Acute MADI MCDANIELS DO Mar 27, 2020 07:54
[2020-03-27] MEDS: LORATADINE (CLARITIN) 10 MG TAB PO SCH (09:03)
[2020-03-27] MEDS: CARVEDILOL 12.5 MG (COREG) TABLET PO SCH ×2 (09:03→20:34)
[2020-03-27] MEDS: VITAMIN D3 10 MCG (400 UNITS) TABLET PO SCH (09:03)
[2020-03-27] MEDS: ROSUVASTATIN 5 MG (CRESTOR) TABLET PO SCH (09:03)
[2020-03-27] MEDS: glipiZIDE XL 10 MG (GLUCOTROL XL) TAB PO SCH ×2 (09:03→20:34)
[2020-03-27] MEDS: PANTOPRAZOLE 40 MG (PROTONIX) TAB PO SCH (09:04)
[2020-03-27] MEDS: LOSARTAN 25 MG (COZAAR) TAB PO SCH (09:04)
[2020-03-27] MEDS: SENNA W/DOCUSATE (SENOKOT S) TABLET PO SCH ×2 (09:05→20:28)
[2020-03-27] MEDS: polyethylene glycoL POWDER 17 GM (MIRALAX) PACK PO SCH ×2 (09:05→19:34)
[2020-03-27] MEDS: DOCUSATE SODIUM 100 MG (COLACE) CAP PO SCH ×2 (09:05→20:28)
[2020-03-27] MEDS: VITAMIN E 180 MG (400 UNITS) CAP PO SCH (09:07)
--- NOTE | 2020-03-27 10:36 | Physical Therapy Daily Note ---
PT Daily Note-Current Subjective Agrees to Rx. States she has been up since 6 am and already had breakfast. Pain Location: No Pain Reported Comment: no c/o dizziness Mental Status Patient Orientation: Person, Place, Time, Situation Attachments: Other-See Comments (mask) Transfers SCALE: Activities may be completed with or without assistive devices. 5-Bsvnosaynn-uqavpzs completes the activity by him/herself with no assistance from a helper. 5-Set-up or Clean-up Assistance-helper sets up or cleans up; patient completes activity. [place] assists only prior to or following the activity. 4-Supervision or Touching Assistance-helper provides verbal cues and/or touching/steadying and/or contact guard assistance as patient completes activity. Assistance may be provided throughout the activity or intermittently. 3-Partial/Moderate Assistance-helper does LESS THAN HALF the effort. [place] lifts, holds or supports trunk or limbs, but provides less than half the effort. 2-Substantial/Maximal Assistance-helper does MORE THAN HALF the effort. [place] lifts or holds trunk or limbs and provides more than half the effort. 6-Peanccgvv-dbcmrx does ALL the effort. Patient does none of the effort to comp lete the activity. Or, the assistance of 2 or more helpers is required for the patient to complete the activity. If activity was not attempted, code reason: 7-Patient Refused. 9-Not Applicable-not attempted and the patient did not perform the activity before the current illness, exacerbation or injury. 10-Not Attempted due to Environmental Limitations-(lack of equipment, weather restraints, etc.). 88-Not Attempted due to Medical Conditions or Safety Concerns. Roll Left & Right (QC): 6 Sit to Lying (QC): 6 Lying to Sitting/Side of Bed(Q: 6 Sit to Stand (QC): 6 Chair/Sqq-kq-Xskwr Xfer(QC): 6 Toilet Transfer (QC): 6 Gait Training Does the Patient Walk?: Yes Walk 10 feet (QC): 5 Walk 50 ft with 2 Turns(QC): 5 Walk 150 ft (QC): 5 Gait Persons Needed: 1 Gait Assistive Device: FWW Stair Training Stair Training: Handrails/: 2 handrails #of Steps: 4 1 Step (curb) (QC): 5 4 Steps (QC): 5 Stairs: Pattern: Reciprocal Exercises Supine Ex: Bridging, Ankle pumps, Quad Set, Rolling, Glut sets, Heel Slides, Short Arc Quads, Scooting, Straight leg raise, Hip abd/add Supine Reps: 15 Treatments toileted indep, SBA Assessment Current Status: Good Progress PT Short Term Goals Short Term Goals Time Frame: Mar 30, 2020 Sit to lyin Lying to sitting on side of be: 4 Walk 150 feet: 4 4 steps: 4 PT Dry Press Operator Helper Goals Dry Press Operator Helper Goals PT Intermediate Goals Time Frame: Apr 10, 2020 Roll Left & Right (QC): 6 Sit to Lying (QC): 6 Lying-Sitting on Side/Bed(QC): 6 Sit to Stand (QC): 6 Chair/Bcn-co-Zhlsd Xfer(QC): 6 Toilet Transfer (QC): 6 Car Transfer (QC): 6 Does the Patient Walk: Yes Walk 10 feet (QC): 6 Walk 50ft with 2 Turns (QC): 6 Walk 150 ft (QC): 6 Walking 10ft on Uneven Surface: 6 1 Step (curb) (QC): 6 4 Steps (QC): 6 12 Steps (QC): 5 Picking up an Object (QC): 5 Does the Pt use WC or Scooter?: No Wheel 50 feet with 2 turns (QC: 9 Wheel 150 feet: 9 PT Plan Treatment/Plan Treatment Plan: Continue Plan of Care Treatment Plan: Bed Mobility, Education, Functional Activity Alicia, Functional Strength, Group Therapy, Gait, Safety, Therapeutic Exercise, Transfers Treatment Duration: Apr 10, 2020 Frequency: At least 5 of 7 days/Wk (IRF) Estimated Hrs Per Day: 1.5 hours per day Patient and/or Family Agrees t: Yes Safety Risks/Education Patient Education: Gait Training, Transfer Techniques, Steps, Correct Positioning, Disease Process, Safety Issues Teaching Recipient: Patient Teaching Methods: Demonstration, Discussion Response to Teaching: Verbalize Understanding, Return Demonstration, Reinforcement Needed Time/GCodes Time In: 800 Time Out: 900 Total Billed Treatment Time: 60 Total Billed Treatment 1,FA25nm,GT15m,EX20m GRIS PETERSEN DIRECTOR [employer] Mar 27, 2020 10:36
--- NOTE | 2020-03-27 10:43 | NUR ---
HBAIMA TO FLOOR. PLAN FOR LOOP RECORDER AT BEDSIDE TOMORROW, 03/28/20. NO NPO.
--- NOTE | 2020-03-27 10:57 | Progress Note - Cardiology ---
Cardiology SOAP Progress Note Subjective: Up ambulating with PT. States one episode of dizziness this morning when sitting up to the bedside. Resolved after a few minutes. No further episodes of syncope or near syncope. No c/o SOB, CP or palpitations. Objective: I&O/Vital Signs 03/27/20 03/28/20 03/28/20 20:30 01:00 06:38 Temp 36.2 Pulse 67 73 Resp 16 B/P (MAP) 158/67 (97) Pulse Ox 95 O2 Delivery Room Air Room Air 03/28/20 00:00 Intake Total 780 ml Balance 780 ml Constitutional: AAO x 3, well-developed, well-nourished Respiratory: chest expansion is symmetric, chest is bilaterally symmetric, lungs clear to auscultation Cardiovascular: regular rate-rhythm, S1 and S2 Gastrointestional: soft, round, audible bowel sounds Extremities: no lower extremity edema bilateral Neurologic/Psychiatric: grossly intact Skin: other Results/Procedures: Labs Laboratory Tests 03/27/20 11:09: Glucometer 288H 03/27/20 16:06: Glucometer 151H 03/27/20 20:30: Glucometer 269H 03/28/20 05:45: Glucometer 125H A/P: Assessment: Syncope, near syncope of undetermined etiology Per MRI of the brain on 2019: Small punctate focus of restricted diffusion in the anterior medial aspect of the right frontal lobe with more faint areas of restricted diffusion in the left basal ganglia and left thalamus, which may represent foci of acute/subacute ischemia. No associated mass effect or hemorrhage is seen. - Management per Dr. Webster MPI of 02-21-[address] Underwood: Pharmacological stress test was negative for ischemia. Normal LV function with no wall motion abnormalities. Normal myocardial perfusion imaging during rest and stress. Echocardiogram of 02-21-[address] Underwood showed concentric LVH. LVEF 65-70%. Grade 1 diastolic dysfunction. PASP 25-30mmHg No hemodynamically significant stenosis of the bilateral internal carotid arteries per u/s of 03-23-2020 DM 2 HTN GERD Plan: Continue telemetry ILR implant on 03/28/20, if no significant arrhythmia detected on tele until then Monitor labs from time to time Discussed plan of care - she is agreeable to ILR implant ISABELLA FARIAS Mar 27, 2020 10:56
--- NOTE | 2020-03-27 10:59 | Progress Note ---
ISRAEL GRANDE,MED STUDENT 03/27/20 1059: Progress Note Progress note: 03/27/20 No new questions/concerns this morning Denies dizziness or MENESES's Has been up and walking with walker Having BM's Woke up around 4am this morning, after sleeping until 11am yesterday Plan: Continue PT/OT Continue home medications Fall prevention SINDHU MCDANIELS DO 03/27/20 2136: Supervisory-Addendum Brief Verification & Attestation Participated in pt care: history, MDM, physical Personally performed: exam, history, MDM, supervision of care Care discussed with: Medical Student Procedures: n/a Results interpretation: Verified all documentation Verification and Attestation of Medical Student E/M Service A medical student performed and documented this service in my presence. I reviewed and verified all information documented by the medical student and made modifications to such information, when appropriate. I personally performed the physical exam and medical decision making. Sindhu Mcdaniels, Mar 27, 2020,21:36 ISRAEL GRANDE MED STUDENT Mar 27, 2020 10:59 SINDHU MCDANIELS DO Mar 27, 2020 21:36
--- NOTE | 2020-03-27 11:30 | Occupational Ther Daily Note ---
OT Current Status-Daily Note Subjective Pt alert, sitting in recliner. Pt agrees to therapy. No c/o pain at this time. Mental Status/Objective Patient Orientation: Person, Place, Time, Situation Attachments: Telemetry ADL-Treatment Pt declines shower, agrees to sponge bath. Pt able to retrieve clothing from bed and transport to bathroom using FWW. Pt ambulated to bathroom with SBA. Transferred to toilet, mod I. Completed toilet hygiene and clothing manipulation, mod I. Pt sat at sink and completed sponge bath, mod I. Donned/doffed clothing at sink, sitting to doff clothing over feet, mod I. Oral care standing at sink, mod I. Therapy Code Descriptions/Definitions Functional [place] Measure: 0=Not Assessed/NA 4=Minimal Assistance 1=Total Assistance 5=Supervision or Setup 2=Maximal Assistance 6=Modified [place] 3=Moderate Assistance 7=Complete IndependenceSCALE: Activities may be completed with or without assistive devices. 8-Lenouwlcqq-zfvkfid completes the activity by him/herself with no assistance from a helper. 5-Set-up or Clean-up Assistance-helper sets up or cleans up; patient completes activity. [place] assists only prior to or following the activity. 4-Supervision or Touching Assistance-helper provides verbal cues and/or touching/steadying and/or contact guard assistance as patient completes activity. Assistance may be provided throughout the activity or intermittently. 3-Partial/Moderate Assistance-helper does LESS THAN HALF the effort. [place] lifts, holds or supports trunk or limbs, but provides less than half the effort. 2-Substantial/Maximal Assistance-helper does MORE THAN HALF the effort. [place] lifts or holds trunk or limbs and provides more than half the effort. 4-Gqveimsph-jbclsm does ALL the effort. Patient does none of the effort to complete the activity. Or, the assistance of 2 or more helpers is required for the patient to complete the activity. If activity was not attempted, code reason: 7-Patient Refused. 9-Not Applicable-not attempted and the patient did not perform the activity before the current illness, exacerbation or injury. 10-Not Attempted due to Environmental Limitations-(lack of equipment, weather restraints, etc.). 88-Not Attempted due to Medical Conditions or Safety Concerns. Oral Hygiene (QC): 6 Bathing Location: L Arm, R Arm, L Upper Leg, R Upper Leg, L Lower Leg (including foot), R Lower Leg (including foot), Chest, Abdomen, Buttocks, Perineal Area Shower/Bathe Self (QC): 6 Upper Body Dressing (QC): 6 Lower Body Dressing (QC): 6 On/Off Footwear: 6 Toileting Hygiene (QC): 6 Toilet Transfer (QC): 6 Other Treatment While ambulating throughout hallways with FWW, pt tends to veer toward R side, ran into 1 object and was able to steer away from others. Pt completed arm bike for 15 min at 15 shrestha resistance to increase strength and activity tolerance for daily functional tasks. Pt used geotechnical operating engineer to flower buncher or picker objects from different heights while ambulating around [facility] using FWW. Pt then ambulated back to room and sat in recliner to complete B UE theraband exercises. Exercise handout and light resistance theraband given to pt for use in room. Skilled instructions and modifications (due to L shldr pain) required for technique and decrease pain in L shldr. Pt able to demonstrate understanding of exercises though required cues to modify. 1 set 10 reps 6 exercises before pt fatigued. After session, pt sitting in recliner with call light/phone in reach. All needs met in room. Education OT Patient Education: Exercise program Teaching Recipient: Patient Teaching Methods: Demonstration, Handout, Discussion Response to Teaching: Verbalize Understanding, Return Demonstration, R einforcement Needed OT Short Term Goals Short Term Goals Time Frame: Mar 30, 2020 Shower/bathe self: 4 Upper body dressin Lower body dressin Putting on/taking off footwear: 4 OT Alf Goals Jack Setter Goals Time Frame: Apr 14, 2020 Eating (QC): 6 Oral Hygiene (QC): 6 Toileting Hygiene (QC): 6 Shower/Bathe Self (QC): 6 Upper Body Dressing (QC): 6 Lower Body Dressing (QC): 6 On/Off Footwear (QC): 6 Additional Goals: 1-Demonstrate ADL Tasks, 2-Verbalize Understanding, 3- ImproveStrength/Alicia 1=Demonstrate adherence to instructed precautions during ADL tasks. 2=Patient will verbalize/demonstrate understanding of assistive devices/modifications for ADL. 3=Patient will improve strength/tolerance for activity to enable patient to perform ADL's. OT Education/Plan Problem List/Assessment Assessment: Decreased Activ Tolerance, Decreased UE Strength, Impaired Self-Ca re Skills, Restricted Funct UE ROM Discharge Recommendations Plan/Recommendations: Continue POC Treatment Plan/Plan of Care Patient would benefit from OT for education, treatment and training to promote independence in ADL's, mobility, safety and/or upper extremity function for ADL's. Plan of Care: ADL Retraining, Functional Mobility, Group Exercise/Act as Ind, UE Funct Exercise/Act, UE Neuromus Re-Ed/Coord Treatment Duration: Apr 14, 2020 Frequency: At least 5 of 7 days/Wk (IRF) Estimated Hrs Per Day: 1.5 hours per day Agreement: Yes Rehab Potential: Good Time/GCodes Start Time: 09:55 Stop Time: 11:25 Total Time Billed (hr/min): 90 Billed Treatment Time 1 visit-ADL 3 (45 min) EX 2 (30 min) FA 1 (15 min) GERI OROZCO Mar 27, 2020 11:30
[2020-03-27 17:17] VITALS: BP 149/67
--- NOTE | 2020-03-27 18:03 | Progress Note - Cardiology ---
Cardiology SOAP Progress Note Subjective: No recurrence of syncope in hosp No cp or palp or shortness of breath No focal weakness No n/v/d Objective: I&O/Vital Signs 03/27/20 03/27/20 03/27/20 03/27/20 06:47 09:17 13:48 17:17 Temp 36.7 Pulse 74 76 71 Resp 16 B/P (MAP) 149/67 (94) Pulse Ox 96 O2 Delivery Room Air Room Air 03/27/20 00:00 Intake Total 1140 ml Balance 1140 ml Constitutional: AAO x 3, well-developed, well-nourished Respiratory: No accessory muscle use, No respiratory distress; chest expansion is symmetric, chest is bilaterally symmetric, lungs clear to auscultation Cardiovascular: regular rate-rhythm; No JVD; S1 and S2 Gastrointestional: No tender; soft, round, audible bowel sounds Extremities: no lower extremity edema bilateral Neurologic/Psychiatric: grossly intact (moves all extremities) Skin: No rash on exposed areas, No ulcerations on exposed areas; other (brusing to left side of neck, LACW and back shoulder left side) Results/Procedures: Labs Laboratory Tests 03/26/20 20:58: Glucometer 275H 03/27/20 05:25: White Blood Count 4.6, Red Blood Count 2.93L, Hemoglobin 8.5L, Hematocrit 26L, Mean Corpuscular Volume 89, Mean Corpuscular Hemoglobin 29, Mean Corpuscular Hemoglobin Concent 32, Red Cell Distribution Width 12.3, Platelet Count 308, Mean Platelet Volume 10.0, Immature Granulocyte % (Auto) 0, Neutrophils (%) (Auto) 59, Lymphocytes (%) (Auto) 25, Monocytes (%) (Auto) 12, Eosinophils (%) (Auto) 4, Basophils (%) (Auto) 0, Neutrophils # (Auto) 2.7, Lymphocytes # (Auto) 1.1, Monocytes # (Auto) 0.5, Eosinophils # (Auto) 0.2, Basophils # (Auto) 0.0, Immature Granulocyte # (Auto) 0.0, Sodium Level 139, Potassium Level 4.4, Chloride Level 106, Carbon Dioxide Level 22, Anion Gap 11, Blood Urea Nitrogen 24H, Creatinine 1.48H, Estimat Glomerular Filtration Rate 34, BUN/Creatinine Ratio 16, Glucose Level 75, Calcium Level 9.1, Corrected Calcium 9.3, Total Bilirubin 0.5, Aspartate Amino Transf (AST/SGOT) 12, Alanine Aminotransferase (ALT/SGPT) 8, Alkaline Phosphatase 58, Total Protein 6.4, Albumin 3.7 03/27/20 05:42: Glucometer 91 03/27/20 11:09: Glucometer 288H 03/27/20 16:06: Glucometer 151H Laboratory Tests 03/27/20 05:25 A/P: Assessment: Syncope, near syncope of undetermined etiology Per MRI of the brain on 2019: Small punctate focus of restricted diffusion in the anterior medial aspect of the right frontal lobe with more f aint areas of restricted diffusion in the left basal ganglia and left thalamus, which may represent foci of acute/subacute ischemia. No associated mass effect or hemorrhage is seen. - Management per stroke team MPI of 02-21-[address] Underwood: Pharmacological stress test was negative for ischemia. Normal LV function with no wall motion abnormalities. Normal myocardial perfusion imaging during rest and stress. Echocardiogram of 02-21-[address] Underwood showed concentric LVH. LVEF 65-70%. Grade 1 diastolic dysfunction. PASP 25-30mmHg DM 2 HTN GERD Plan: Plan ILR. I discussed the rationale, pros, cons, alternatives with her. She understands and provides informed consent Monitor labs from time to time JANES CID MD FACP FAC CCDS Mar 27, 2020 18:03
[2020-03-28] MEDS: inSUlin ASPART (NovoLOG) 1 UNIT/0.01 ML (CHARGE PER UNIT) SC SCH ×4 (05:50→20:25)
[2020-03-28 06:38] VITALS: BP 158/67
--- NOTE | 2020-03-28 08:40 | PM&R Progress Note ---
Subjective HPI/CC On Admission Date Seen by Provider: Mar 28, 2020 Time Seen by Provider: 09:00 Subjective/Events-last exam 03/28/20: Loop recorder will be placed today Will check iron levels since she does have anemia chronic disease and diabetes Will likely need iron infusion 03/27/20: Creatinine 1.48 Hgb 8.5 Not dizzy or having a headache today Walker used and doing pretty well Bowels moving pretty well 03/26/20: Slept until 1100 today BM yesterday after laxatives Took laxatives again today No pain reported Cardiology monitoring patient Telemetry reveals NSR no pauses of any other abnormality to cause falls No pain reported MRI reviewed Not as dizzy today Working on inner ear dysfunction today with PT Checked meds and labs Conferred with RN reviewed therapy notes Review of Systems General: Fatigue, Malaise Neurological: Weakness Objective Exam Vital Signs Vital Signs Date Time Temp Pulse Resp B/P (MAP) Pulse Ox O2 Delivery O2 Flow Rate FiO2 03/28/20 20:28 Room Air 03/28/20 16:13 37.4 69 16 142/66 (91) 97 Capillary Refill : Less Than 3 Seconds General Appearance: No Apparent Distress, WD/WN, Chronically ill HEENT: PERRL/EOMI, Normal ENT Inspection, Pharynx Normal Neck: Full Range of Motion, Normal Inspection, Non Tender, Supple, Carotid Bruit Respiratory: Chest Non Tender, Lungs Clear, Normal Breath Sounds, No Accessory Muscle Use, No Respiratory Distress Cardiovascular: Regular Rate, Rhythm, No Edema, No Gallop, No JVD, No Murmur, Normal Peripheral Pulses Gastrointestinal: Normal Bowel Sounds, No Organomegaly, No Pulsatile Mass, Non Tender, Soft Back: Normal Inspection, No CVA Tenderness, No Vertebral Tenderness Extremity: Normal Capillary Refill, Normal Inspection, Normal Range of Motion, Non Tender, No Calf Tenderness, No Pedal Edema Neurologic/Psychiatric: Alert, Oriented x3, No Motor/Sensory Deficits, Normal Mood/Affect, job trainer II-XII Norm as Tested, Abnormal Gait, Motor Weakness (generalized legs) Skin: Normal Color, Warm/Dry Lymphatic: No Adenopathy Results/Procedures Lab Patient resulted labs reviewed. FIM Transfers Therapy Code Descriptions/Definitions Functional [place] Measure: 0=Not Assessed/NA 4=Minimal Assistance 1=Total Assistance 5=Supervision or Setup 2=Maximal Assistance 6=Modified [place] 3=Moderate Assistance 7=Complete IndependenceSCALE: Activities may be completed with or without assistive devices. 9-Eptmmoqmxm-wqtbbdl completes the activity by him/herself with no assistance from a helper. 5-Set-up or Clean-up Assistance-helper sets up or cleans up; patient completes activity. [place] assists only prior to or following the activity. 4-Supervision or Touching Assistance-helper provides verbal cues and/or touching/steadying and/or contact guard assistance as patient completes activity. Assistance may be provided throughout the activity or intermittently. 3-Partial/Moderate Assistance-helper does LESS THAN HALF the effort. [place] lifts, holds or supports trunk or limbs, but provides less than half the effort. 2-Substantial/Maximal Assistance-helper does MORE THAN HALF the effort. [place] lifts or holds trunk or limbs and provides more than half the effort. 4-Gprmymlso-dayxlf does ALL the effort. Patient does none of the effort to complete the activity. Or, the assistance of 2 or more helpers is required for the patient to complete the activity. If activity was not attempted, code reason: 7-Patient Refused. 9-Not Applicable-not attempted and the patient did not perform the activity before the current illness, exacerbation or injury. 10-Not Attempted due to Environmental Limitations-(lack of equipment, weather restraints, etc.). 88-Not Attempted due to Medical Conditions or Safety Concerns. Roll Left to Right (QC): 6 Sit to Lying (QC): 6 Sit to Stand (QC): 6 Chair/Bfy-lj-Ilkqo Xfer(QC): 6 Car Transfer (QC): 4 Gait Training Does the Patient Walk?: Yes Walk 10 feet (QC): 5 Walk 50 ft with 2 Turns(QC): 5 Walk 150 ft (QC): 5 Walking 10ft/uneven surface-QC: 3 Gait Persons Needed: 1 Gait Assistive Device: FWW Wheelchair Training Does the Pt Use a Wheelchair?: No Wheel 50 ft with 2 turns (QC): 9 Wheel 150 ft (QC): 9 Stair Training Stair Training: Handrails/: 2 handrails #of Steps: 4 1 Step (curb) (QC): 5 4 Steps (QC): 5 12 Steps (QC): 88 Stairs: Pattern: Reciprocal Balance Picking up an Object (QC): 3 ADL-Treatment Eating (QC): 6 Oral Hygiene (QC): 6 Bathing Location: L Arm, R Arm, L Upper Leg, R Upper Leg, L Lower Leg (including foot), R Lower Leg (including foot), Chest, Abdomen, Buttocks, Perineal Area Shower/Bathe Self (QC): 6 Upper Body Dressing (QC): 6 Lower Body Dressing (QC): 6 On/Off Footwear (QC): 6 Toileting Hygiene (QC): 6 Toilet Transfer (QC): 6 Assessment/Plan Assessment and Plan Assess & Plan/Chief Complaint Assessment: Closed head injury with LOC now with recurrent falls Dizziness CRI DM HTN HLP Anemia Plan: MRI IRF protocol Home meds Fall risk prevention 03/24/20: Inner ear dysfunction exercises Monitor Tely for pauses Monitor closely 03/26/20: Doing very well No dizziness No falls 03/27/20: Monitor dizziness and headache Use walker for ambulation to prevent falls Check iron level 03/28/20: Loop recorder today May need iron infusions Labs pending (1) LOC (loss of consciousness) (2) Closed head injury Status: Acute (3) Diabetes mellitus (4) Renal insufficiency (5) Hyperlipemia (6) Hypertension (7) Scalp hematoma Status: Acute (8) Arm paresthesia, right Status: Acute (9) Vertigo Status: Acute (10) Concussion Status: Acute (11) Syncope and collapse Status: Acute MADI MCDANIELS DO Mar 28, 2020 08:40
[2020-03-28] MEDS: PANTOPRAZOLE 40 MG (PROTONIX) TAB PO SCH (08:42)
[2020-03-28] MEDS: VITAMIN D3 10 MCG (400 UNITS) TABLET PO SCH (08:42)
[2020-03-28] MEDS: ROSUVASTATIN 5 MG (CRESTOR) TABLET PO SCH (08:42)
[2020-03-28] MEDS: SENNA W/DOCUSATE (SENOKOT S) TABLET PO SCH ×2 (08:43→20:25)
[2020-03-28] MEDS: LORATADINE (CLARITIN) 10 MG TAB PO SCH (08:43)
[2020-03-28] MEDS: DOCUSATE SODIUM 100 MG (COLACE) CAP PO SCH ×2 (08:43→20:25)
[2020-03-28] MEDS: LOSARTAN 25 MG (COZAAR) TAB PO SCH (08:43)
[2020-03-28] MEDS: glipiZIDE XL 10 MG (GLUCOTROL XL) TAB PO SCH ×2 (08:43→20:25)
[2020-03-28] MEDS: CARVEDILOL 12.5 MG (COREG) TABLET PO SCH ×2 (08:43→20:25)
[2020-03-28] MEDS: VITAMIN E 180 MG (400 UNITS) CAP PO SCH (08:43)
[2020-03-28] MEDS: polyethylene glycoL POWDER 17 GM (MIRALAX) PACK PO SCH ×2 (09:07→19:29)
--- NOTE | 2020-03-28 10:08 | Physical Therapy Daily Note ---
PT Daily Note-Current Subjective Pt sitting recliner upon arrival. Pt agrees to PT. Pain Location: No Pain Reported Mental Status Patient Orientation: Person, Place, Time, Situation Transfers SCALE: Activities may be completed with or without assistive devices. 4-Xwepltxfis-dhjlhmz completes the activity by him/herself with no assistance from a helper. 5-Set-up or Clean-up Assistance-helper sets up or cleans up; patient completes activity. [place] assists only prior to or following the activity. 4-Supervision or Touching Assistance-helper provides verbal cues and/or touching/steadying and/or contact guard assistance as patient completes activity. Assistance may be provided throughout the activity or intermittently. 3-Partial/Moderate Assistance-helper does LESS THAN HALF the effort. [place] lifts, holds or supports trunk or limbs, but provides less than half the effort. 2-Substantial/Maximal Assistance-helper does MORE THAN HALF the effort. [place] lifts or holds trunk or limbs and provides more than half the effort. 4-Elklcvolu-fdzrjk does ALL the effort. Patient does none of the effort to complete the activity. Or, the assistance of 2 or more helpers is required for the patient to complete the activity. If activity was not attempted, code reason: 7-Patient Refused. 9-Not Applicable-not attempted and the patient did not perform the activity before the current illness, exacerbation or injury. 10-Not Attempted due to Environmental Limitations-(lack of equipment, weather restraints, etc.). 88-Not Attempted due to Medical Conditions or Safety Concerns. Sit to Stand (QC): 6 Weight Bearing Full Weight Bearing Full Weight Bearing Gait Training Does the Patient Walk?: Yes Distance: 450' x2 Walk 10 feet (QC): 6 Walk 50 ft with 2 Turns(QC): 6 Walk 150 ft (QC): 6 Gait Persons Needed: 1 Gait Assistive Device: FWW Wheelchair Training Does the Pt Use a Wheelchair?: No Stair Training Stair Training: Handrails/: 1 handrail #of Steps: 4 1 Step (curb) (QC): 5 4 Steps (QC): 5 Stairs: Pattern: Reciprocal Exercises Seated Therapy Exercises: Ankle pumps, Long arc quads, Hip flexion, Kicking activity, Hip abd/add Seated Reps: 15 Standing: Heel/toe raises, 3 way Ex=Flex, Abd, Ext, Marching, Mini squats, Sit to Stand Standing Reps: 15 Treatments TF to standing, amb in hallway before arriving at Therapy Gym. Completes amb of steps as well as Standing Ex at //bars. Also completes Seated Ex before amb. in hallway then returning to room to rest in recliner. All needs met, call light in hand. Assessment Current Status: Good Progress Pt kenny. tx well. PT Short Term Goals Short Term Goals Time Frame: Mar 30, 2020 Sit to lyin Lying to sitting on side of be: 4 Walk 150 feet: 4 4 steps: 4 PT Senior Care Goals Senior Care Goals PT Senior Care Goals Time Frame: Apr 10, 2020 Roll Left & Right (QC): 6 Sit to Lying (QC): 6 Lying-Sitting on Side/Bed(QC): 6 Sit to Stand (QC): 6 Chair/Lsu-qg-Cqobf Xfer(QC): 6 Toilet Transfer (QC): 6 Car Transfer (QC): 6 Does the Patient Walk: Yes Walk 10 feet (QC): 6 Walk 50ft with 2 Turns (QC): 6 Walk 150 ft (QC): 6 Walking 10ft on Uneven Surface: 6 1 Step (curb) (QC): 6 4 Steps (QC): 6 12 Steps (QC): 5 Picking up an Object (QC): 5 Does the Pt use WC or Scooter?: No Wheel 50 feet with 2 turns (QC: 9 Wheel 150 feet: 9 PT Plan Problem List Problem List: Activity Tolerance Treatment/Plan Treatment Plan: Continue Plan of Care Treatment Plan: Bed Mobility, Education, Functional Activity Alicia, Functional Strength, Group Therapy, Gait, Safety, Therapeutic Exercise, Transfers Treatment Duration: Apr 10, 2020 Frequency: At least 5 of 7 days/Wk (IRF) Estimated Hrs Per Day: 1.5 hours per day Patient and/or Family Agrees t: Yes Safety Risks/Education Patient Education: Gait Training, Transfer Techniques, Steps, Correct Positioning, Safety Issues Teaching Recipient: Patient Teaching Methods: Discussion Response to Teaching: Verbalize Understanding Time/GCodes Time In: 900 Time Out: 1000 Total Billed Treatment Time: 60 Total Billed Treatment 1, GT x2 (30m) & EX x2 (30m) BELKIS PARR ELECTRICAL AUTOMATION ENGINEER Mar 28, 2020 10:08
--- NOTE | 2020-03-28 10:52 | Progress Note - Cardiology ---
Cardiology SOAP Progress Note Subjective: No cp or palp or shortness of breath No syncope since admission No focal weakness Objective: I&O/Vital Signs 03/28/20 03/28/20 03/28/20 03/28/20 01:00 06:38 06:41 09:00 Temp 36.2 Pulse 67 73 70 Resp 16 B/P (MAP) 158/67 (97) Pulse Ox 95 O2 Delivery Room Air Room Air 03/28/20 00:00 Intake Total 780 ml Balance 780 ml Constitutional: AAO x 3, well-developed, well-nourished Respiratory: No accessory muscle use, No respiratory distress; chest expansion is symmetric, chest is bilaterally symmetric, lungs clear to auscultation Cardiovascular: regular rate-rhythm; No JVD; S1 and S2 Gastrointestional: No tender; soft, round, audible bowel sounds Extremities: no lower extremity edema bilateral Neurologic/Psychiatric: grossly intact (moves all extremities) Skin: No rash on exposed areas, No ulcerations on exposed areas; other (brusing to left side of neck, LACW and back shoulder left side) Results/Procedures: Labs Laboratory Tests 03/27/20 11:09: Glucometer 288H 03/27/20 16:06: Glucometer 151H 03/27/20 20:30: Glucometer 269H 03/28/20 05:45: Glucometer 125H Laboratory Tests 03/27/20 05:25 A/P: Assessment: Syncope, near syncope of undetermined etiology S/p ILR on 03/28/20 Per MRI of the brain on Mar 23, 2020: Small punctate focus of restricted diffusion in the anterior medial aspect of the right frontal lobe with more faint areas of restricted diffusion in the left basal ganglia and left thalamus, which may represent foci of acute/subacute ischemia. No associated mass effect or hemorrhage is seen. - Management per stroke team MPI of 02-21-[address] Underwood: Pharmacological stress test was negative for ischemia. Normal LV function with no wall motion abnormalities. Normal myocardial perfusion imaging during rest and stress. Echocardiogram of 02-21-[address] Underwood showed concentric LVH. LVEF 65-70%. Grade 1 diastolic dysfunction. PASP 25-30mmHg DM 2 HTN GERD Plan: Continue current regimen Ok to d/c from cardiac standpoint We advise no driving or operating machinery or involving in situations where syncope may lead to injury to others or self. This is until further recommendations JANES CID MD FACP FAC CCDS Mar 28, 2020 10:52
[2020-03-28] MEDS ORDERED: LIDOCAINE 1% INJ 20 ML 20 ML VIAL ONE (11:27)
--- NOTE | 2020-03-28 11:45 | Occupational Ther Daily Note ---
OT Current Status-Daily Note Subjective Pt just back from procedure (Loop Recorder). Pt agrees to therapy. No c/o at this time. No shower until tomorrow then no water spray on L upper chest and dry immediately. Mental Status/Objective Patient Orientation: Person, Place, Time, Situation Attachments: Other-See Comments (Loop recorder) ADL-Treatment Pt agrees to sponge bath. Due to procedure, pt requests to use hospital gown today. Independent with supine <--> EOB. Independent to ambulate to bathroom and transfer onto toilet. Independent with toileting hygiene and clothing manipulation. After set up today, pt able to complete own dressing. Completed own sponge bath sitting at sink, standing at sink to cleanse buttocks and ashish area. Standing at sink, pt able to complete oral care independently. After session, pt sitting in recliner with call light/phone in reach. All needs met in room. Therapy Code Descriptions/Definitions Functional [place] Measure: 0=Not Assessed/NA 4=Minimal Assistance 1=Total Assistance 5=Supervision or Setup 2=Maximal Assistance 6=Modified [place] 3=Moderate Assistance 7=Complete IndependenceSCALE: Activities may be completed with or without assistive devices. 3-Mwrfdbqtqw-kkgfvqu completes the activity by him/herself with no assistance from a helper. 5-Set-up or Clean-up Assistance-helper sets up or cleans up; patient completes activity. [place] assists only prior to or following the activity. 4-Supervision or Touching Assistance-helper provides verbal cues and/or touching/steadying and/or contact guard assistance as patient completes activity. Assistance may be provided throughout the activity or intermittently. 3-Partial/Moderate Assistance-helper does LESS THAN HALF the effort. [place] lifts, holds or supports trunk or limbs, but provides less than half the effort. 2-Substantial/Maximal Assistance-helper does MORE THAN HALF the effort. [place] lifts or holds trunk or limbs and provides more than half the effort. 1-Klwduzpsi-gcrmkt does ALL the effort. Patient does none of the effort to complete the activity. Or, the assistance of 2 or more helpers is required for the patient to complete the activity. If activity was not attempted, code reason: 7-Patient Refused. 9-Not Applicable-not attempted and the patient did not perform the activity before the current illness, exacerbation or injury. 10-Not Attempted due to Environmental Limitations-(lack of equipment, weather restraints, etc.). 88-Not Attempted due to Medical Conditions or Safety Concerns. Oral Hygiene (QC): 6 Shower/Bathe Self (QC): 6 Upper Body Dressing (QC): 5 Lower Body Dressing (QC): 5 On/Off Footwear: 5 Toileting Hygiene (QC): 6 Toilet Transfer (QC): 6 OT Short Term Goals Short Term Goals Time Frame: Mar 30, 2020 Shower/bathe self: 4 Upper body dressin Lower body dressin Putting on/taking off footwear: 4 OT Glass Washer And Carrier Goals Glass Washer And Carrier Goals Time Frame: Apr 14, 2020 Eating (QC): 6 Oral Hygiene (QC): 6 Toileting Hygiene (QC): 6 Shower/Bathe Self (QC): 6 Upper Body Dressing (QC): 6 Lower Body Dressing (QC): 6 On/Off Footwear (QC): 6 Additional Goals: 1-Demonstrate ADL Tasks, 2-Verbalize Understanding, 3- ImproveStrength/Alicia 1=Demonstrate adherence to instructed precautions during ADL tasks. 2=Patient will verbalize/demonstrate understanding of assistive devices/modifications for ADL. 3=Patient will improve strength/tolerance for activity to enable patient to perform ADL's. OT Education/Plan Problem List/Assessment Assessment: Decreased Activ Tolerance, Impaired Funct Balance Discharge Recommendations Plan/Recommendations: Continue POC Treatment Plan/Plan of Care Patient would benefit from OT for education, treatment and training to promote independence in ADL's, mobility, safety and/or upper extremity function for ADL's. Plan of Care: ADL Retraining, Functional Mobility, Group Exercise/Act as Ind, UE Funct Exercise/Act, UE Neuromus Re-Ed/Coord Treatment Duration: Apr 14, 2020 Frequency: At least 5 of 7 days/Wk (IRF) Estimated Hrs Per Day: 1.5 hours per day Agreement: Yes Rehab Potential: Good Time/GCodes Start Time: 11:15 Stop Time: 12:00 Total Time Billed (hr/min): 45 Billed Treatment Time 1 visit-ADL 3 (45 min) GERI OROZCO Mar 28, 2020 11:45
--- NOTE | 2020-03-28 14:10 | Physical Therapy Daily Note ---
PT Daily Note-Current Subjective Pt sitting in Therapy Gym after just finishing with OT. Pt agrees to PT. Pain Location: No Pain Reported Mental Status Patient Orientation: Person, Place, Time, Situation Transfers SCALE: Activities may be completed with or without assistive devices. 0-Mwdubdiwif-fuiswlv completes the activity by him/herself with no assistance from a helper. 5-Set-up or Clean-up Assistance-helper sets up or cleans up; patient completes activity. [place] assists only prior to or following the activity. 4-Supervision or Touching Assistance-helper provides verbal cues and/or touching/steadying and/or contact guard assistance as patient completes activity. Assistance may be provided throughout the activity or intermittently. 3-Partial/Moderate Assistance-helper does LESS THAN HALF the effort. [place] lifts, holds or supports trunk or limbs, but provides less than half the effort. 2-Substantial/Maximal Assistance-helper does MORE THAN HALF the effort. [place] lifts or holds trunk or limbs and provides more than half the effort. 9-Euulcyxru-thozjx does ALL the effort. Patient does none of the effort to complete the activity. Or, the assistance of 2 or more helpers is required for the patient to complete the activity. If activity was not attempted, code reason: 7-Patient Refused. 9-Not Applicable-not attempted and the patient did not perform the activity before the current illness, exacerbation or injury. 10-Not Attempted due to Environmental Limitations-(lack of equipment, weather restraints, etc.). 88-Not Attempted due to Medical Conditions or Safety Concerns. Sit to Stand (QC): 6 Weight Bearing Full Weight Bearing Full Weight Bearing Gait Training Does the Patient Walk?: Yes Distance: 450' Walk 10 feet (QC): 6 Walk 50 ft with 2 Turns(QC): 6 Walk 150 ft (QC): 6 Gait Persons Needed: 1 Gait Assistive Device: FWW Wheelchair Training Does the Pt Use a Wheelchair?: No Exercises Standing: Heel/toe raises, 3 way Ex=Flex, Abd, Ext (15 reps), Marching, Mini squats, Sit to Stand Standing Reps: 20 Treatments TF to standing, declines need to use BR. Amb in hallway then completes Standing Ex at //bars. GLOBAL ACCOUNT MANAGER also gives & reviews written HEP for Supine & Seated Ex. All needs met, call light in hand. Assessment Current Status: Good Progress Pt kenny. tx well. PT Short Term Goals Short Term Goals Time Frame: Mar 30, 2020 Sit to lyin Lying to sitting on side of be: 4 Walk 150 feet: 4 4 steps: 4 PT Contact Agent Goals Contact Agent Goals PT Contact Agent Goals Time Frame: Apr 10, 2020 Roll Left & Right (QC): 6 Sit to Lying (QC): 6 Lying-Sitting on Side/Bed(QC): 6 Sit to Stand (QC): 6 Chair/Doy-ye-Tulww Xfer(QC): 6 Toilet Transfer (QC): 6 Car Transfer (QC): 6 Does the Patient Walk: Yes Walk 10 feet (QC): 6 Walk 50ft with 2 Turns (QC): 6 Walk 150 ft (QC): 6 Walking 10ft on Uneven Surface: 6 1 Step (curb) (QC): 6 4 Steps (QC): 6 12 Steps (QC): 5 Picking up an Object (QC): 5 Does the Pt use WC or Scooter?: No Wheel 50 feet with 2 turns (QC: 9 Wheel 150 feet: 9 PT Plan Problem List Problem List: Activity Tolerance Treatment/Plan Treatment Plan: Continue Plan of Care Treatment Plan: Bed Mobility, Education, Functional Activity Alicia, Functional Strength, Group Therapy, Gait, Safety, Therapeutic Exercise, Transfers Treatment Duration: Apr 10, 2020 Frequency: At least 5 of 7 days/Wk (IRF) Estimated Hrs Per Day: 1.5 hours per day Patient and/or Family Agrees t: Yes Safety Risks/Education Patient Education: Issued Written HEP Time/GCodes Time In: 1330 Time Out: 1400 Total Billed Treatment Time: 30 Total Billed Treatment 1, EX (15m) & GT (15m) BELKIS PARR GLOBAL ACCOUNT MANAGER Mar 28, 2020 14:10
--- NOTE | 2020-03-28 14:30 | Occupational Ther Daily Note ---
OT Current Status-Daily Note Subjective Pt alert, sitting in recliner. Pt agrees to therapy. No c/o pain. Mental Status/Objective Patient Orientation: Person, Place, Time, Situation ADL-Treatment Therapy Code Descriptions/Definitions Functional [place] Measure: 0=Not Assessed/NA 4=Minimal Assistance 1=Total Assistance 5=Supervision or Setup 2=Maximal Assistance 6=Modified [place] 3=Moderate Assistance 7=Complete IndependenceSCALE: Activities may be completed with or without assistive devices. 9-Wtujvkrkac-xjylzda completes the activity by him/herself with no assistance f rom a helper. 5-Set-up or Clean-up Assistance-helper sets up or cleans up; patient completes activity. [place] assists only prior to or following the activity. 4-Supervision or Touching Assistance-helper provides verbal cues and/or touching/steadying and/or contact guard assistance as patient completes activity. Assistance may be provided throughout the activity or intermittently. 3-Partial/Moderate Assistance-helper does LESS THAN HALF the effort. [place] lifts, holds or supports trunk or limbs, but provides less than half the effort. 2-Substantial/Maximal Assistance-helper does MORE THAN HALF the effort. [place] lifts or holds trunk or limbs and provides more than half the effort. 1-Pkvbjqefz-eaczdd does ALL the effort. Patient does none of the effort to complete the activity. Or, the assistance of 2 or more helpers is required for the patient to complete the activity. If activity was not attempted, code reason: 7-Patient Refused. 9-Not Applicable-not attempted and the patient did not perform the activity before the current illness, exacerbation or injury. 10-Not Attempted due to Environmental Limitations-(lack of equipment, weather restraints, etc.). 88-Not Attempted due to Medical Conditions or Safety Concerns. Eating (QC): 6 (Pt able to set up own meal and use regular utensils.) Other Treatment Pt able to ambulate around ARU using FWW without veering or balance breaks. Pt then completed resistive fine motor strengthening tasks while standing. Pt tolerated exercises well. Pt left in care of PT. All needs met. OT Short Term Goals Short Term Goals Time Frame: Mar 30, 2020 Shower/bathe self: 4 Upper body dressin Lower body dressin Putting on/taking off footwear: 4 OT Nursing Home Goals Nursing Home Goals Time Frame: Apr 14, 2020 Eating (QC): 6 Oral Hygiene (QC): 6 Toileting Hygiene (QC): 6 Shower/Bathe Self (QC): 6 Upper Body Dressing (QC): 6 Lower Body Dressing (QC): 6 On/Off Footwear (QC): 6 Additional Goals: 1-Demonstrate ADL Tasks, 2-Verbalize Understanding, 3-ImproveStrength/Alicia 1=Demonstrate adherence to instructed precautions during ADL tasks. 2=Patient will verbalize/demonstrate understanding of assistive devices/modifications for ADL. 3=Patient will improve strength/tolerance for activity to enable patient to perform ADL's. OT Education/Plan Problem List/Assessment Assessment: Decreased Activ Tolerance, Impaired Funct Balance Discharge Recommendations Plan/Recommendations: Continue POC Treatment Plan/Plan of Care Patient would benefit from OT for education, treatment and training to promote i ndependence in ADL's, mobility, safety and/or upper extremity function for ADL's. Plan of Care: ADL Retraining, Functional Mobility, Group Exercise/Act as Ind, UE Funct Exercise/Act, UE Neuromus Re-Ed/Coord Treatment Duration: Apr 14, 2020 Frequency: At least 5 of 7 days/Wk (IRF) Estimated Hrs Per Day: 1.5 hours per day Agreement: Yes Rehab Potential: Good Time/GCodes Start Time: 12:45 Stop Time: 13:30 Total Time Billed (hr/min): 45 Billed Treatment Time 1 visit-FA 1 (20 min) EX 2 (25 min) GERI OROZCO Mar 28, 2020 14:30
--- NOTE | 2020-03-28 14:42 | NUR ---
CM/SS CONCURRENT DOCUMENTATION Visited with patient to explore her readiness for discharge. If the team is in agreement, she is proposing March 30. Will discuss with ARU team tomorrow during patient care conference. DME: FWW will be needed.
[2020-03-28 16:13] VITALS: BP 142/66
--- NOTE | 2020-03-29 02:40 | NUR ---
ROSA MARIA/JESSICA PATIENT CARE CONFERENCE Presented Summary for patient review, discussed, signed, charted. Patient is in agreement to proposed discharge of March 31. She states her son Anderson closes his office around 1300 and will come to pick her up after that. She will then be at home alone but indicates confidence she will be comfortable with that situation. She fully intends to carry a cell phone with her at all times. Additionally, she has neighbors who will be checking on her periodically and she can call upon them if needed. DME: FWW needed, will order when orders are provided. [facility]: Reviewed Medicare Compare agencies in patient service area, she has chosen [facility] for her provider. Referral completed for RN and PT, agency confirms they will open services on the weekend. Addendum: 03/30/20 at 1408 by SOLA RODRIGUEZ DME: FWW referral initiated with patient choice agency, [facility]. Requested deliver tomorrow a.m.
[2020-03-29] MEDS: inSUlin ASPART (NovoLOG) 1 UNIT/0.01 ML (CHARGE PER UNIT) SC SCH ×4 (05:40→21:14)
[2020-03-29] MEDS: LOSARTAN 25 MG (COZAAR) TAB PO SCH (05:41)
[2020-03-29] MEDS: CARVEDILOL 12.5 MG (COREG) TABLET PO SCH ×2 (05:41→20:43)
[2020-03-29 06:10] VITALS: BP 183/64
[2020-03-29] MEDS: IRON SUCROSE 200 MG/10 ML (VENOFER) VIAL IV SCH (08:33)
[2020-03-29] MEDS: ROSUVASTATIN 5 MG (CRESTOR) TABLET PO SCH (08:33)
[2020-03-29] MEDS: polyethylene glycoL POWDER 17 GM (MIRALAX) PACK PO SCH ×2 (08:33→19:54)
[2020-03-29] MEDS: SENNA W/DOCUSATE (SENOKOT S) TABLET PO SCH ×2 (08:34→20:46)
[2020-03-29] MEDS: glipiZIDE XL 10 MG (GLUCOTROL XL) TAB PO SCH ×2 (08:34→20:43)
[2020-03-29] MEDS: VITAMIN E 180 MG (400 UNITS) CAP PO SCH (08:34)
[2020-03-29] MEDS: PANTOPRAZOLE 40 MG (PROTONIX) TAB PO SCH (08:35)
[2020-03-29] MEDS: DOCUSATE SODIUM 100 MG (COLACE) CAP PO SCH ×2 (08:35→20:46)
[2020-03-29] MEDS: VITAMIN D3 10 MCG (400 UNITS) TABLET PO SCH (08:35)
--- NOTE | 2020-03-29 08:41 | Cardiology Progress Note ---
Subjective Date Seen by Provider: Mar 29, 2020 Time Seen by Provider: 08:15 Subjective/Events-last exam Patient sitting up in bed, no new complaints. Denies any further syncope. Denies any chest pain or dizziness. Review of Systems General: No Chills, No Night Sweats, No Fatigue, No Malaise, No Appetite, No Other HEENT: No Head Aches, No Visual Changes, No Eye Pain, No Ear Pain, No Dysphasia, No Sinus Congestion, No Post Nasal Drip, No Sore Throat, No Other Pulmonary: No Dyspnea, No Cough, No Pleuritic Chest Pain, No Other Cardiovascular: No: Chest Pain, Palpitations, Orthopnea, Paroxysmal Noc. Dyspnea, Edema, Lt Headedness, Other Objective-Cardiology Exam Last Set of Vital Signs Vital Signs 03/29/20 03/29/20 06:10 09:00 Temp 36.2 Pulse 73 Resp 14 B/P (MAP) 183/64 (103) Pulse Ox 98 O2 Delivery Room Air Capillary Refill : Less Than 3 Seconds I&O Intake and Output 03/29/20 00:00 Intake Total 3190 ml Balance 3190 ml Intake Oral 3190 ml # Voids 8 General: Alert, Oriented X3, Cooperative HEENT: Atraumatic, PERRLA Neck: Supple, No JVD, No Thyromegaly Lungs: Clear to Auscultation, Normal Air Movement Heart: Regular Rate, Normal S1, Normal S2, No Murmurs Abdomen: Normal Bowel Sounds, Soft, No Tenderness, No Hepatosplenomegaly, No Masses Extremities: No Clubbing, No Cyanosis, No Edema, Normal Pulses, No Tenderness/Swelling Skin: No Rashes, No Breakdown, No Significant Lesion Neuro: Normal Gait, Normal Speech, Strength at 5/5 X4 Ext, Normal Tone, Sensation Intact Psych/Mental Status: Mental Status NL, Mood NL A/P-Cardiology Admission Diagnosis Syncope HTN GERD DM Assessment/Plan Syncope, near syncope of undetermined etiology. S/p ILR on 03/28/[address] Ames. MRI of the brain on Mar 23, 2020: Small punctate focus of restricted diffusion in the anterior medial aspect of the right frontal lobe with more faint areas of restricted diffusion in the left basal ganglia and left thalamus, which may represent foci of acute/subacute ischemia. No associated mass effect or hemorrhage is seen. - Management per stroke team, maintained on ASA.Pharmacological stress test was negative for ischemia. Normal LV function with no wall motion abnormalities. Normal myocardial perfusion imaging during rest and stress. Echocardiogram of 02-21-[address] Underwood showed concentric LVH. LVEF 65-70%. Grade 1 diastolic dysfunction. PASP 25-30mmHg DM 2, management per medical services HTN, elevated this morning, continue to monitor. GERD Patient was seen and evaluated with Lydia, examination performed, management plan was discussed, agree with the current scribed note, I made few changes to the note using Italic font Patient was seen at bedside comfortably, denied any chest pain No further episode of dizziness or syncope Blood pressure was noted to be elevated, I am hesitant to do any change to her blood pressure medication due to her syncope. Continue to monitor Clinical Quality Measures DVT/VTE Risk/Contraindication: Risk Factor Score Per Nursin RFS Level Per Nursing on Admit: 2=Moderate LYDIA DAS Mar 29, 2020 8:41 am NUBIA SINGH MD Mar 29, 2020 3:28 pm
[2020-03-29] MEDS: LORATADINE (CLARITIN) 10 MG TAB PO SCH (08:49)
--- NOTE | 2020-03-29 09:13 | PM&R Progress Note ---
Subjective HPI/CC On Admission Date Seen by Provider: Mar 29, 2020 Time Seen by Provider: 10:00 Subjective/Events-last exam 03/29/20: Iron infusions will continue BP was 180 earlier today Loop recorder placed yesterday Bowels havent moved in a couple of days so will take laxatives including [place] Lax 03/28/20: Loop recorder will be placed today Will check iron levels since she does have anemia chronic disease and diabetes Will likely need iron infusion 03/27/20: Creatinine 1.48 Hgb 8.5 Not dizzy or having a headache today Walker used and doing pretty well Bowels moving pretty well 03/26/20: Slept until 1100 today BM yesterday after laxatives Took laxatives again today No pain reported Cardiology monitoring patient Telemetry reveals NSR no pauses of any other abnormality to cause falls No pain reported MRI reviewed Not as dizzy today Working on inner ear dysfunction today with PT Checked meds and labs Conferred with RN reviewed therapy notes Review of Systems General: Fatigue, Malaise Neurological: Weakness Objective Exam Vital Signs Vital Signs Date Time Temp Pulse Resp B/P (MAP) Pulse Ox O2 Delivery O2 Flow Rate FiO2 03/29/20 20:47 Room Air 03/29/20 17:30 36.8 66 18 162/70 (100) 98 Capillary Refill : Less Than 3 Seconds General Appearance: No Apparent Distress, WD/WN, Chronically ill HEENT: PERRL/EOMI, Normal ENT Inspection, Pharynx Normal Neck: Full Range of Motion, Normal Inspection, Non Tender, Supple, Carotid Bruit Respiratory: Chest Non Tender, Lungs Clear, Normal Breath Sounds, No Accessory Muscle Use, No Respiratory Distress Cardiovascular: Regular Rate, Rhythm, No Edema, No Gallop, No JVD, No Murmur, Normal Peripheral Pulses Gastrointestinal: Normal Bowel Sounds, No Organomegaly, No Pulsatile Mass, Non Tender, Soft Back: Normal Inspection, No CVA Tenderness, No Vertebral Tenderness Extremity: Normal Capillary Refill, Normal Inspection, Normal Range of Motion, Non Tender, No Calf Tenderness, No Pedal Edema Neurologic/Psychiatric: Alert, Oriented x3, No Motor/Sensory Deficits, Normal 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 FIM Transfers Therapy Code Descriptions/Definitions Functional [place] Measure: 0=Not Assessed/NA 4=Minimal Assistance 1=Total Assistance 5=Supervision or Setup 2=Maximal Assistance 6=Modified [place] 3=Moderate Assistance 7=Complete IndependenceSCALE: Activities may be completed with or without assistive devices. 3-Tueizzelrj-dhwwnqm completes the activity by him/herself with no assistance from a helper. 5-Set-up or Clean-up Assistance-helper sets up or cleans up; patient completes activity. [place] assists only prior to or following the activity. 4-Supervision or Touching Assistance-helper provides verbal cues and/or touching/steadying and/or contact guard assistance as patient completes activity. Assistance may be provided throughout the activity or intermittently. 3-Partial/Moderate Assistance-helper does LESS THAN HALF the effort. [place] lifts, holds or supports trunk or limbs, but provides less than half the effort. 2-Substantial/Maximal Assistance-helper does MORE THAN HALF the effort. [place] lifts or holds trunk or limbs and provides more than half the effort. 5-Khmwqglmh-xwhooi does ALL the effort. Patient does none of the effort to complete the activity. Or, the assistance of 2 or more helpers is required for the patient to complete the activity. If activity was not attempted, code reason: 7-Patient Refused. 9-Not Applicable-not attempted and the patient did not perform the activity before the current illness, exacerbation or injury. 10-Not Attempted due to Environmental Limitations-(lack of equipment, weather restraints, etc.). 88-Not Attempted due to Medical Conditions or Safety Concerns. Roll Left to Right (QC): 6 Sit to Lying (QC): 6 Sit to Stand (QC): 6 Chair/Hee-dn-Dugnq Xfer(QC): 6 Car Transfer (QC): 4 Gait Training Does the Patient Walk?: Yes Distance: 450' Walk 10 feet (QC): 6 Walk 50 ft with 2 Turns(QC): 6 Walk 150 ft (QC): 6 Walking 10ft/uneven surface-QC: 3 Gait Persons Needed: 1 Gait Assistive Device: FWW Wheelchair Training Does the Pt Use a Wheelchair?: No Wheel 50 ft with 2 turns (QC): 9 Wheel 150 ft (QC): 9 Stair Training Stair Training: Handrails/: 1 handrail #of Steps: 4 1 Step (curb) (QC): 5 4 Steps (QC): 5 12 Steps (QC): 88 Stairs: Pattern: Reciprocal Balance Picking up an Object (QC): 3 ADL-Treatment Eating (QC): 6 (Pt able to set up own meal and use regular utensils.) Oral Hygiene (QC): 6 Bathing Location: L Arm, R Arm, L Upper Leg, R Upper Leg, L Lower Leg (including foot), R Lower Leg (including foot), Chest, Abdomen, Buttocks, Perineal Area Shower/Bathe Self (QC): 6 Upper Body Dressing (QC): 5 Lower Body Dressing (QC): 5 On/Off Footwear (QC): 5 Toileting Hygiene (QC): 6 Toilet Transfer (QC): 6 Assessment/Plan Assessment and Plan Assess & Plan/Chief Complaint Assessment: Closed head injury with LOC now with recurrent falls Dizziness CRI DM HTN HLP Anemia Plan: MRI IRF protocol Home meds Fall risk prevention 03/24/20: Inner ear dysfunction exercises Monitor Tely for pauses Monitor closely 03/26/20: Doing very well No dizziness No falls 03/27/20: Monitor dizziness and headache Use walker for ambulation to prevent falls Check iron level 03/28/20: Loop recorder today May need iron infusions Labs pending 03/29/20: Continue iron infusions Monitor blood pressure Loop recorder placed yesterday Focus on bowels today (1) LOC (loss of consciousness) (2) Closed head injury Status: Acute (3) Diabetes mellitus (4) Renal insufficiency (5) Hyperlipemia (6) Hypertension (7) Scalp hematoma Status: Acute (8) Arm paresthesia, right Status: Acute (9) Vertigo Status: Acute (10) Concussion Status: Acute (11) Syncope and collapse Status: Acute MADI MCDANIELS DO Mar 29, 2020 09:13
--- NOTE | 2020-03-29 10:09 | Physical Therapy Daily Note ---
PT Daily Note-Current Subjective Pt. agrees to Rx. No pain c/o or dizziness c/o this Rx Pain Location: No Pain Reported Mental Status Patient Orientation: Normal For Age Attachments: Other-See Comments (mask while out of room) Transfers SCALE: Activities may be completed with or without assistive devices. 3-Dkwmtbwpup-arlqjup completes the activity by him/herself with no assistance from a helper. 5-Set-up or Clean-up Assistance-helper sets up or cleans up; patient completes activity. [place] assists only prior to or following the activity. 4-Supervision or Touching Assistance-helper provides verbal cues and/or touching/steadying and/or contact guard assistance as patient completes activity. Assistance may be provided throughout the activity or intermittently. 3-Partial/Moderate Assistance-helper does LESS THAN HALF the effort. [place] lifts, holds or supports trunk or limbs, but provides less than half the effort. 2-Substantial/Maximal Assistance-helper does MORE THAN HALF the effort. [place] lifts or holds trunk or limbs and provides more than half the effort. 7-Zyvtfjyxy-tofiux does ALL the effort. Patient does none of the effort to complete the activity. Or, the assistance of 2 or more helpers is required for the patient to complete the activity. If activity was not attempted, code reason: 7-Patient Refused. 9-Not Applicable-not attempted and the patient did not perform the activity before the current illness, exacerbation or injury. 10-Not Attempted due to Environmental Limitations-(lack of equipment, weather restraints, etc.). 88-Not Attempted due to Medical Conditions or Safety Concerns. all TRFs SBA to Mod I Weight Bearing Full Weight Bearing Full Weight Bearing Gait Training Gait Assistive Device: FWW 160ft x 2 CGA FWW, no LOB, no dizziness noted Exercises Standing: Hip Abduction, Hamstring curls, Heel/toe raises, Marching, Mini squats, Sit to Stand Standing Reps: 15 Assessment Current Status: Good Progress PT Short Term Goals Short Term Goals Time Frame: Mar 30, 2020 Sit to lyin Lying to sitting on side of be: 4 Walk 150 feet: 4 4 steps: 4 PT Carroting Machine Offbearer Goals Carroting Machine Offbearer Goals PT Usp Goals Time Frame: Apr 10, 2020 Roll Left & Right (QC): 6 Sit to Lying (QC): 6 Lying-Sitting on Side/Bed(QC): 6 Sit to Stand (QC): 6 Chair/Mgc-wq-Vdndq Xfer(QC): 6 Toilet Transfer (QC): 6 Car Transfer (QC): 6 Does the Patient Walk: Yes Walk 10 feet (QC): 6 Walk 50ft with 2 Turns (QC): 6 Walk 150 ft (QC): 6 Walking 10ft on Uneven Surface: 6 1 Step (curb) (QC): 6 4 Steps (QC): 6 12 Steps (QC): 5 Picking up an Object (QC): 5 Does the Pt use WC or Scooter?: No Wheel 50 feet with 2 turns (QC: 9 Wheel 150 feet: 9 PT Plan Treatment/Plan Treatment Plan: Continue Plan of Care Treatment Plan: Bed Mobility, Education, Functional Activity Alicia, Functional Strength, Group Therapy, Gait, Safety, Therapeutic Exercise, Transfers Treatment Duration: Apr 10, 2020 Frequency: At least 5 of 7 days/Wk (IRF) Estimated Hrs Per Day: 1.5 hours per day Patient and/or Family Agrees t: Yes Safety Risks/Education Patient Education: Gait Training, Transfer Techniques, Correct Positioning, Disease Process, Safety Issues Teaching Recipient: Patient Teaching Methods: Demonstration, Discussion Response to Teaching: Verbalize Understanding, Return Demonstration, R einforcement Needed Time/GCodes Time In: 1300 Time Out: 1330 Total Billed Treatment Time: 30 Total Billed Treatment 1,GT15m,EX15m this note is for 03-27-2020 YAYO Bryan LEE A PTA Mar 29, 2020 10:09
--- NOTE | 2020-03-29 10:32 | Occupational Ther Daily Note ---
OT Current Status-Daily Note Subjective Pt alert, sitting in recliner. Pt agrees to therapy. Pt c/o soreness in L shldr, warm blankets applied. No other complaints. Mental Status/Objective Patient Orientation: Person, Place, Time, Situation Attachments: IV, Other-See Comments (Loop Recorder) ADL-Treatment Pt agrees to shower. IV site and Loop Recorder covered. No LOB throughout session. Pt retrieved clothing from bag on counter using FWW, independently. Pt then transported to bathroom, 1 cue to hang on FWW to free up B UE. Transferred to toilet using FWW, independently. Completed hygiene and clothing manipulation using grabbar and FWW, independently. Transferred to shower using FWW and shower bench, independently. Completed shower using shower bench, grabbar and hand held shower with supervision/mod I for safety. Pt able to don/doff clothing independently. Standing at sink, pt able to complete oral care. Therapy Code Descriptions/Definitions Functional [place] Measure: 0=Not Assessed/NA 4=Minimal Assistance 1=Total Assistance 5=Supervision or Setup 2=Maximal Assistance 6=Modified [place] 3=Moderate Assistance 7=Complete IndependenceSCALE: Activities may be completed with or without assistive devices. 6-[place] completes the activity by him/herself with no assistance from a helper. 5-Set-up or Clean-up Assistance-helper sets up or cleans up; patient completes activity. [place] assists only prior to or following the activity. 4-Supervision or Touching Assistance-helper provides verbal cues and/or touching/steadying and/or contact guard assistance as patient completes activity. Assistance may be provided throughout the activity or intermittently. 3-Partial/Moderate Assistance-helper does LESS THAN HALF the effort. [place] lifts, holds or supports trunk or limbs, but provides less than half the effort. 2-Substantial/Maximal Assistance-helper does MORE THAN HALF the effort. [place] lifts or holds trunk or limbs and provides more than half the effort. 2-Znbdpgunk-pyvndk does ALL the effort. Patient does none of the effort to complete the activity. Or, the assistance of 2 or more helpers is required for the patient to complete the activity. If activity was not attempted, code reason: 7-Patient Refused. 9-Not Applicable-not attempted and the patient did not perform the activity before the current illness, exacerbation or injury. 10-Not Attempted due to Environmental Limitations-(lack of equipment, weather restraints, etc.). 88-Not Attempted due to Medical Conditions or Safety Concerns. Eating (QC): 6 (Using clinical judgment, pt able to complete own set up and uses regular utensils to eat.) Oral Hygiene (QC): 6 Bathing Location: L Arm, R Arm, L Upper Leg, R Upper Leg, L Lower Leg (including foot), R Lower Leg (including foot), Chest, Abdomen, Buttocks, Perineal Area Shower/Bathe Self (QC): 4 Upper Body Dressing (QC): 6 Lower Body Dressing (QC): 6 On/Off Footwear: 6 Toileting Hygiene (QC): 6 Toilet Transfer (QC): 6 Other Treatment Pt completed R UE gross/fine motor task with 1# wt attached to wrist to increase overall strength for daily functional tasks. Pt receiving iron in L UE at this time. Completed after task, nrsg removed. Pt ambulated to laundry using FWW and completed laundry/washing by self. After session, pt sitting in recliner with call light/phone in reach. Warm blanket placed on L shldr to decrease pain and increase ROM. OT Short Term Goals Short Term Goals Time Frame: Mar 30, 2020 Shower/bathe self: 4 Upper body dressin Lower body dressin Putting on/taking off footwear: 4 OT Retirement Goals Load Dropper Goals Time Frame: Apr 14, 2020 Eating (QC): 6 (met) Oral Hygiene (QC): 6 (met) Toileting Hygiene (QC): 6 (met) Shower/Bathe Self (QC): 6 Upper Body Dressing (QC): 6 (met) Lower Body Dressing (QC): 6 (met) On/Off Footwear (QC): 6 (met) Additional Goals: 1-Demonstrate ADL Tasks, 2-Verbalize Understanding, 3-ImproveStrength/Alicia 1=Demonstrate adherence to instructed precautions during ADL tasks. 2=Patient will verbalize/demonstrate understanding of assistive devices/modifications for ADL. 3=Patient will improve strength/tolerance for activity to enable patient to perf orm ADL's. OT Education/Plan Problem List/Assessment Assessment: Decreased Activ Tolerance, Impaired Funct Balance Discharge Recommendations Plan/Recommendations: Continue POC Treatment Plan/Plan of Care Patient would benefit from OT for education, treatment and training to promote independence in ADL's, mobility, safety and/or upper extremity function for ADL's. Plan of Care: ADL Retraining, Functional Mobility, Group Exercise/Act as Ind, UE Funct Exercise/Act, UE Neuromus Re-Ed/Coord Treatment Duration: Apr 14, 2020 Frequency: At least 5 of 7 days/Wk (IRF) Estimated Hrs Per Day: 1.5 hours per day Agreement: Yes Rehab Potential: Good Time/GCodes Start Time: 09:00 Stop Time: 10:30 Total Time Billed (hr/min): 90 Billed Treatment Time 1 visit-ADL 4 (60 min) FA 1 (10 min) EX 1 (20 min) GERI OROZCO Mar 29, 2020 10:32
--- NOTE | 2020-03-29 12:09 | Physical Therapy Daily Note ---
PT Daily Note-Current Subjective Pt sitting in recliner upon arrival. Pt agrees to PT, declines need to use BR. Pain Location: Left Location Body Site: Shoulder Pain Description: Ache Comment: Pt reports L shoulder pain but not rated. Mental Status Patient Orientation: Person, Place, Time, Situation Transfers SCALE: Activities may be completed with or without assistive devices. 5-Hxfhgblyox-hqporqk completes the activity by him/herself with no assistance from a helper. 5-Set-up or Clean-up Assistance-helper sets up or cleans up; patient completes activity. [place] assists only prior to or following the activity. 4-Supervision or Touching Assistance-helper provides verbal cues and/or touching/steadying and/or contact guard assistance as patient completes activity. Assistance may be provided throughout the activity or intermittently. 3-Partial/Moderate Assistance-helper does LESS THAN HALF the effort. [place] lifts, holds or supports trunk or limbs, but provides less than half the effort. 2-Substantial/Maximal Assistance-helper does MORE THAN HALF the effort. [place] lifts or holds trunk or limbs and provides more than half the effort. 9-Jdxfvhdce-dixkao does ALL the effort. Patient does none of the effort to complete the activity. Or, the assistance of 2 or more helpers is required for the patient to complete the activity. If activity was not attempted, code reason: 7-Patient Refused. 9-Not Applicable-not attempted and the patient did not perform the activity before the current illness, exacerbation or injury. 10-Not Attempted due to Environmental Limitations-(lack of equipment, weather restraints, etc.). 88-Not Attempted due to Medical Conditions or Safety Concerns. Sit to Stand (QC): 6 Weight Bearing Full Weight Bearing Full Weight Bearing Gait Training Does the Patient Walk?: Yes Distance: 450' Walk 10 feet (QC): 6 Walk 50 ft with 2 Turns(QC): 6 Walk 150 ft (QC): 6 Gait Persons Needed: 1 Gait Assistive Device: FWW Wheelchair Training Does the Pt Use a Wheelchair?: No Stair Training Stair Training: Handrails/: 1 handrail #of Steps: 8 1 Step (curb) (QC): 5 4 Steps (QC): 5 Stairs: Pattern: Reciprocal Exercises Supine Ex: Ankle pumps, Quad Set, Rolling, Glut sets, Heel Slides, Short Arc Quads, Straight leg raise, Hip abd/add Supine Reps: 15 Treatments TF to standing and amb. in hallway. Pt completes 2 sets of 4 steps. Pt completes Supine & Seated Ex before taking extended walk then returns to room to rest in recliner. All needs met, call light in hand. Assessment Current Status: Good Progress Pt kenny. tx well. PT Short Term Goals Short Term Goals Time Frame: Mar 30, 2020 Sit to lyin Lying to sitting on side of be: 4 Walk 150 feet: 4 4 steps: 4 PT Office Support Assistant Goals Alf Goals PT Office Support Assistant Goals Time Frame: Apr 10, 2020 Roll Left & Right (QC): 6 Sit to Lying (QC): 6 Lying-Sitting on Side/Bed(QC): 6 Sit to Stand (QC): 6 Chair/Bey-jj-Vyvhu Xfer(QC): 6 Toilet Transfer (QC): 6 Car Transfer (QC): 6 Does the Patient Walk: Yes Walk 10 feet (QC): 6 Walk 50ft with 2 Turns (QC): 6 Walk 150 ft (QC): 6 Walking 10ft on Uneven Surface: 6 1 Step (curb) (QC): 6 4 Steps (QC): 6 12 Steps (QC): 5 Picking up an Object (QC): 5 Does the Pt use WC or Scooter?: No Wheel 50 feet with 2 turns (QC: 9 Wheel 150 feet: 9 PT Plan Problem List Problem List: Activity Tolerance Treatment/Plan Treatment Plan: Continue Plan of Care Treatment Plan: Bed Mobility, Education, Functional Activity Alicia, Functional Strength, Group Therapy, Gait, Safety, Therapeutic Exercise, Transfers Treatment Duration: Apr 10, 2020 Frequency: At least 5 of 7 days/Wk (IRF) Estimated Hrs Per Day: 1.5 hours per day Patient and/or Family Agrees t: Yes Safety Risks/Education Patient Education: Steps, Correct Positioning Teaching Recipient: Patient Teaching Methods: Discussion Response to Teaching: Verbalize Understanding Time/GCodes Time In: 1115 Time Out: 1215 Total Billed Treatment Time: 60 Total Billed Treatment 1, GT (15m), FA (20m) & EX x2 (25m) BELKIS PARR AIR CARRIER MAINTENANCE INSPECTOR Mar 29, 2020 12:09
--- NOTE | 2020-03-29 14:53 | Physical Therapy Daily Note ---
PT Daily Note-Current Subjective Pt sitting in recliner upon arrival. Pt agrees to PT. Pain Location: No Pain Reported Mental Status Patient Orientation: Person, Place, Time, Situation Transfers SCALE: Activities may be completed with or without assistive devices. 9-Pdazhshitz-veondey completes the activity by him/herself with no assistance from a helper. 5-Set-up or Clean-up Assistance-helper sets up or cleans up; patient completes activity. [place] assists only prior to or following the activity. 4-Supervision or Touching Assistance-helper provides verbal cues and/or touching/steadying and/or contact guard assistance as patient completes activity. Assistance may be provided throughout the activity or intermittently. 3-Partial/Moderate Assistance-helper does LESS THAN HALF the effort. [place] lifts, holds or supports trunk or limbs, but provides less than half the effort. 2-Substantial/Maximal Assistance-helper does MORE THAN HALF the effort. [place] lifts or holds trunk or limbs and provides more than half the effort. 6-Gauqmnhyn-ujvgpq does ALL the effort. Patient does none of the effort to complete the activity. Or, the assistance of 2 or more helpers is required for the patient to complete the activity. If activity was not attempted, code reason: 7-Patient Refused. 9-Not Applicable-not attempted and the patient did not perform the activity bef ore the current illness, exacerbation or injury. 10-Not Attempted due to Environmental Limitations-(lack of equipment, weather r estraints, etc.). 88-Not Attempted due to Medical Conditions or Safety Concerns. Sit to Stand (QC): 6 Weight Bearing Full Weight Bearing Full Weight Bearing Gait Training Does the Patient Walk?: Yes Distance: 450', 150' Walk 10 feet (QC): 6 Walk 50 ft with 2 Turns(QC): 6 Walk 150 ft (QC): 6 Gait Persons Needed: 1 Gait Assistive Device: FWW Wheelchair Training Does the Pt Use a Wheelchair?: No Exercises NuStep Minutes: 15 NuStep Workload: 4 Treatments TF to standing then amb. in hallway. Pt uses NuStep for 15m at WL 4 then returns to room to rest, declining need for BR. All needs met, call light in hand. Assessment Current Status: Good Progress Pt has gained strength, as well as improved mobility and safety. PT Short Term Goals Short Term Goals Time Frame: Mar 30, 2020 Sit to lyin Lying to sitting on side of be: 4 Walk 150 feet: 4 4 steps: 4 PT Filing Clerk Goals Filing Clerk Goals PT Correction Goals Time Frame: Apr 10, 2020 Roll Left & Right (QC): 6 Sit to Lying (QC): 6 Lying-Sitting on Side/Bed(QC): 6 Sit to Stand (QC): 6 Chair/Enj-na-Owlqk Xfer(QC): 6 Toilet Transfer (QC): 6 Car Transfer (QC): 6 Does the Patient Walk: Yes Walk 10 feet (QC): 6 Walk 50ft with 2 Turns (QC): 6 Walk 150 ft (QC): 6 Walking 10ft on Uneven Surface: 6 1 Step (curb) (QC): 6 4 Steps (QC): 6 12 Steps (QC): 5 Picking up an Object (QC): 5 Does the Pt use WC or Scooter?: No Wheel 50 feet with 2 turns (QC: 9 Wheel 150 feet: 9 PT Plan Problem List Problem List: Activity Tolerance Treatment/Plan Treatment Plan: Continue Plan of Care Treatment Plan: Bed Mobility, Education, Functional Activity Alicia, Functional Strength, Group Therapy, Gait, Safety, Therapeutic Exercise, Transfers Treatment Duration: Apr 10, 2020 Frequency: At least 5 of 7 days/Wk (IRF) Estimated Hrs Per Day: 1.5 hours per day Patient and/or Family Agrees t: Yes Time/GCodes Time In: 1330 Time Out: 1400 Total Billed Treatment Time: 30 Total Billed Treatment 1, GT (15m) & EX (15m) BELKIS PARR ARTIFICIAL CANDY MAKER Mar 29, 2020 14:53
[2020-03-29 17:30] VITALS: BP 162/70
[2020-03-30] MEDS: inSUlin ASPART (NovoLOG) 1 UNIT/0.01 ML (CHARGE PER UNIT) SC SCH ×4 (05:21→21:40)
[2020-03-30 05:52] VITALS: BP 147/63
[2020-03-30 08:00] VITALS: BP 140/65
--- NOTE | 2020-03-30 09:24 | Cardiology Progress Note ---
Subjective Date Seen by Provider: Mar 30, 2020 Time Seen by Provider: 09:23 Subjective/Events-last exam Patient was seen at bedside, sitting comfortably, denied any chest pain or s hortness of breath. Review of Systems General: No Chills, No Night Sweats, No Fatigue, No Malaise, No Appetite, No Other HEENT: No Head Aches, No Visual Changes, No Eye Pain, No Ear Pain, No Dysphasia, No Sinus Congestion, No Post Nasal Drip, No Sore Throat, No Other Pulmonary: No Dyspnea, No Cough, No Pleuritic Chest Pain, No Other Cardiovascular: No: Chest Pain, Palpitations, Orthopnea, Paroxysmal Noc. Dyspn ea, Edema, Lt Headedness, Other Objective-Cardiology Exam Last Set of Vital Signs Vital Signs 03/30/20 05:52 Temp 36.8 Pulse 76 Resp 16 B/P (MAP) 147/63 (91) Pulse Ox 97 O2 Delivery Room Air Capillary Refill : Less Than 3 Seconds I&O Intake and Output 03/30/20 00:00 Intake Total 1400 ml Balance 1400 ml Intake Oral 1400 ml # Voids 6 # Bowel Movements 1 General: Alert, Oriented X3, Cooperative HEENT: Atraumatic, PERRLA Neck: Supple, No JVD, No Thyromegaly Lungs: Clear to Auscultation, Normal Air Movement Heart: Regular Rate, Normal S1, Normal S2, No Murmurs Abdomen: Normal Bowel Sounds, Soft, No Tenderness, No Hepatosplenomegaly, No Masses Extremities: No Clubbing, No Cyanosis, No Edema, Normal Pulses, No Tenderness/Swelling Skin: No Rashes, No Breakdown, No Significant Lesion Neuro: Normal Gait, Normal Speech, Strength at 5/5 X4 Ext, Normal Tone, Sensation Intact Psych/Mental Status: Mental Status NL, Mood NL A/P-Cardiology Admission Diagnosis Syncope HTN GERD DM Assessment/Plan Syncope, near syncope, probably orthostatic hypotension. S/p ILR on 03/28/[address] Ames. MRI of the brain on Mar 23, 2020: Small punctate focus of restricted diffusion in the anterior medial aspect of the right frontal lobe with more faint areas of restricted diffusion in the left basal ganglia and left thalamus, which may represent foci of acute/subacute ischemia. No associated mass effect or hemorrhage is seen. - Management per stroke team, maintained on A SA.Pharmacological stress test was negative for ischemia. Normal LV function with no wall motion abnormalities. Normal myocardial perfusion imaging during rest and stress. Echocardiogram of 02-21-[address] Underwood showed concentric LVH. LVEF 65-70%. Grade 1 diastolic dysfunction. PASP 25-30mmHg DM 2, management per medical services HTN, elevated this morning, I am hesitant to do changes to her blood pressure due to the orthostatic hypotension, I will try EVERETT hose and evaluate tolerance and response GERD Clinical Quality Measures DVT/VTE Risk/Contraindication: Risk Factor Score Per Nursin RFS Level Per Nursing on Admit: 2=Moderate NUBIA SINGH MD Mar 30, 2020 9:24 am
[2020-03-30] MEDS: SENNA W/DOCUSATE (SENOKOT S) TABLET PO SCH ×2 (09:25→21:40)
[2020-03-30] MEDS: VITAMIN D3 10 MCG (400 UNITS) TABLET PO SCH (09:25)
[2020-03-30] MEDS: DOCUSATE SODIUM 100 MG (COLACE) CAP PO SCH ×2 (09:25→21:40)
[2020-03-30] MEDS: glipiZIDE XL 10 MG (GLUCOTROL XL) TAB PO SCH ×2 (09:25→21:40)
[2020-03-30] MEDS: ROSUVASTATIN 5 MG (CRESTOR) TABLET PO SCH (09:25)
[2020-03-30] MEDS: LOSARTAN 25 MG (COZAAR) TAB PO SCH (09:25)
[2020-03-30] MEDS: CARVEDILOL 12.5 MG (COREG) TABLET PO SCH ×2 (09:26→21:40)
[2020-03-30] MEDS: PANTOPRAZOLE 40 MG (PROTONIX) TAB PO SCH (09:26)
[2020-03-30] MEDS: LORATADINE (CLARITIN) 10 MG TAB PO SCH (09:26)
[2020-03-30] MEDS: VITAMIN E 180 MG (400 UNITS) CAP PO SCH (09:29)
[2020-03-30] MEDS: polyethylene glycoL POWDER 17 GM (MIRALAX) PACK PO SCH ×2 (09:32→21:40)
--- NOTE | 2020-03-30 10:12 | Occupational Ther Daily Note ---
OT Current Status-Daily Note Subjective Pt alert, sitting in recliner. Pt agrees to therapy. No c/o pain at this time. Mental Status/Objective Patient Orientation: Person, Place, Time, Situation Attachments: IV, Other-See Comments (Loop Recorder) ADL-Treatment Pt agrees to sponge bath and changing clothing. Pt retrieves own clothing using FWW. Pt able to complete sponge bath independently sitting to complete most of bathing, standing to cleanse buttocks and ashish area. Pt completes all dressing independently. Pt stood at sink to complete oral care independently. Independently completes toilet transfer and toileting. Therapy Code Descriptions/Definitions Functional [place] Measure: 0=Not Assessed/NA 4=Minimal Assistance 1=Total Assistance 5=Supervision or Setup 2=Maximal Assistance 6=Modified [place] 3=Moderate Assistance 7=Complete IndependenceSCALE: Activities may be completed with or without assistive devices. 1-Yabtzksuid-dytmuxf completes the activity by him/herself with no assistance from a helper. 5-Set-up or Clean-up Assistance-helper sets up or cleans up; patient completes activity. [place] assists only prior to or following the activity. 4-Supervision or Touching Assistance-helper provides verbal cues and/or touching/steadying and/or contact guard assistance as patient completes activity. Assistance may be provided throughout the activity or intermittently. 3-Partial/Moderate Assistance-helper does LESS THAN HALF the effort. [place] lifts, holds or supports trunk or limbs, but provides less than half the effort. 2-Substantial/Maximal Assistance-helper does MORE THAN HALF the effort. [place] lifts or holds trunk or limbs and provides more than half the effort. 7-Byektklqe-gyawdw does ALL the effort. Patient does none of the effort to complete the activity. Or, the assistance of 2 or more helpers is required for the patient to complete the activity. If activity was not attempted, code reason: 7-Patient Refused. 9-Not Applicable-not attempted and the patient did not perform the activity before the current illness, exacerbation or injury. 10-Not Attempted due to Environmental Limitations-(lack of equipment, weather restraints, etc.). 88-Not Attempted due to Medical Conditions or Safety Concerns. Eating (QC): 6 Oral Hygiene (QC): 6 Shower/Bathe Self (QC): 6 Upper Body Dressing (QC): 6 Lower Body Dressing (QC): 6 On/Off Footwear: 6 Toileting Hygiene (QC): 6 Toilet Transfer (QC): 6 Other Treatment Pt ambulates throughout 2nd floor using FWW without LOB. Pt then ambulates to therapy gym to complete arm bike for 15 min with minimal resistance to increase strength and activity tolerance for daily functional tasks. Pt then ambulated back to room and sat in recliner after session. Call light/phone in reach. All needs met in room. OT Short Term Goals Short Term Goals Time Frame: Mar 30, 2020 Shower/bathe self: 4 Upper body dressin Lower body dressin Putting on/taking off footwear: 4 OT Half-Way Goals Cotton Seed Culler Goals Time Frame: Apr 14, 2020 Eating (QC): 6 (met) Oral Hygiene (QC): 6 (met) Toileting Hygiene (QC): 6 (met) Shower/Bathe Self (QC): 6 (met) Upper Body Dressing (QC): 6 (met) Lower Body Dressing (QC): 6 (met) On/Off Footwear (QC): 6 (met) Additional Goals: 1-Demonstrate ADL Tasks, 2-Verbalize Understanding, 3-ImproveStrength/Alicia 1=Demonstrate adherence to instructed precautions during ADL tasks. 2=Patient will verbalize/demonstrate understanding of assistive devices/modifications for ADL. 3=Patient will improve strength/tolerance for activity to enable patient to perform ADL's. OT Education/Plan Problem List/Assessment Assessment: Decreased Activ Tolerance, Impaired Self-Care Skills, Restricted Funct UE ROM Discharge Recommendations Plan/Recommendations: Continue POC Treatment Plan/Plan of Care Patient would benefit from OT for education, treatment and training to promote independence in ADL's, mobility, safety and/or upper extremity function for ADL's. Plan of Care: ADL Retraining, Functional Mobility, Group Exercise/Act as Ind, UE Funct Exercise/Act, UE Neuromus Re-Ed/Coord Treatment Duration: Apr 14, 2020 Frequency: At least 5 of 7 days/Wk (IRF) Estimated Hrs Per Day: 1.5 hours per day Agreement: Yes Rehab Potential: Good Time/GCodes Start Time: 08:45 Stop Time: 10:15 Total Time Billed (hr/min): 90 Billed Treatment Time 1 visit-ADL 3 (45 min) FA 2 (25 min) EX 1 (15 min) GERI OROZCO Mar 30, 2020 10:11
--- NOTE | 2020-03-30 10:56 | PM&R Progress Note ---
Subjective HPI/CC On Admission Date Seen by Provider: Mar 30, 2020 Time Seen by Provider: 12:30 Subjective/Events-last exam 03/30/20: DC planned for tomorrow No pain reported Needs FWW HH ordered 03/29/20: Iron infusions will continue BP was 180 earlier today Loop recorder placed yesterday Bowels havent moved in a couple of days so will take laxatives including MiraLax 03/28/20: Loop recorder will be placed today Will check iron levels since she does have anemia chronic disease and diabetes Will likely need iron infusion 03/27/20: Creatinine 1.48 Hgb 8.5 Not dizzy or having a headache today Walker used and doing pretty well Bowels moving pretty well 03/26/20: Slept until 1100 today BM yesterday after laxatives Took laxatives again today No pain reported Cardiology monitoring patient Telemetry reveals NSR no pauses of any other abnormality to cause falls No pain reported MRI reviewed Not as dizzy today Working on inner ear dysfunction today with PT Checked meds and labs Conferred with RN reviewed therapy notes Review of Systems General: Fatigue, Malaise Objective Exam Vital Signs Vital Signs Date Time Temp Pulse Resp B/P (MAP) Pulse Ox O2 Delivery O2 Flow Rate FiO2 03/30/20 17:23 36.3 65 14 141/65 (90) 97 Room Air Capillary Refill : Less Than 3 Seconds General Appearance: No Apparent Distress, WD/WN, Chronically ill HEENT: PERRL/EOMI, Normal ENT Inspection, Pharynx Normal Neck: Full Range of Motion, Normal Inspection, Non Tender, Supple, Carotid Bruit Respiratory: Chest Non Tender, Lungs Clear, Normal Breath Sounds, No Accessory Muscle Use, No Respiratory Distress Cardiovascular: Regular Rate, Rhythm, No Edema, No Gallop, No JVD, No Murmur, Normal Peripheral Pulses Gastrointestinal: Normal Bowel Sounds, No Organomegaly, No Pulsatile Mass, Non Tender, Soft Back: Normal Inspection, No CVA Tenderness, No Vertebral Tenderness Extremity: Normal Capillary Refill, Normal Inspection, Normal Range of Motion, Non Tender, No Calf Tenderness, No Pedal Edema Neurologic/Psychiatric: Alert, Oriented x3, No Motor/Sensory Deficits, Normal Mood/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 FIM Transfers Therapy Code Descriptions/Definitions Functional [place] Measure: 0=Not Assessed/NA 4=Minimal Assistance 1=Total Assistance 5=Supervision or Setup 2=Maximal Assistance 6=Modified [place] 3=Moderate Assistance 7=Complete IndependenceSCALE: Activities may be completed with or without assistive devices. 6-Fmamaqzlkl-otfwhot completes the activity by him/herself with no assistance from a helper. 5-Set-up or Clean-up Assistance-helper sets up or cleans up; patient completes activity. [place] assists only prior to or following the activity. 4-Supervision or Touching Assistance-helper provides verbal cues and/or touching/steadying and/or contact guard assistance as patient completes activity. Assistance may be provided throughout the activity or intermittently. 3-Partial/Moderate Assistance-helper does LESS THAN HALF the effort. [place] lifts, holds or supports trunk or limbs, but provides less than half the effort. 2-Substantial/Maximal Assistance-helper does MORE THAN HALF the effort. [place] lifts or holds trunk or limbs and provides more than half the effort. 4-Uswqdhsqs-impewl does ALL the effort. Patient does none of the effort to complete the activity. Or, the assistance of 2 or more helpers is required for the patient to complete the activity. If activity was not attempted, code reason: 7-Patient Refused. 9-Not Applicable-not attempted and the patient did not perform the activity before the current illness, exacerbation or injury. 10-Not Attempted due to Environmental Limitations-(lack of equipment, weather restraints, etc.). 88-Not Attempted due to Medical Conditions or Safety Concerns. Roll Left to Right (QC): 6 Sit to Lying (QC): 6 Sit to Stand (QC): 6 Chair/Ldo-up-Dvudi Xfer(QC): 6 Car Transfer (QC): 4 Gait Training Does the Patient Walk?: Yes Distance: 450', 150' Walk 10 feet (QC): 6 Walk 50 ft with 2 Turns(QC): 6 Walk 150 ft (QC): 6 Walking 10ft/uneven surface-QC: 3 Gait Persons Needed: 1 Gait Assistive Device: FWW Wheelchair Training Does the Pt Use a Wheelchair?: No Wheel 50 ft with 2 turns (QC): 9 Wheel 150 ft (QC): 9 Stair Training Stair Training: Handrails/: 1 handrail #of Steps: 8 1 Step (curb) (QC): 5 4 Steps (QC): 5 12 Steps (QC): 88 Stairs: Pattern: Reciprocal Balance Picking up an Object (QC): 3 ADL-Treatment Eating (QC): 6 Oral Hygiene (QC): 6 Bathing Location: L Arm, R Arm, L Upper Leg, R Upper Leg, L Lower Leg (including foot), R Lower Leg (including foot), Chest, Abdomen, Buttocks, Perineal Area Shower/Bathe Self (QC): 6 Upper Body Dressing (QC): 6 Lower Body Dressing (QC): 6 On/Off Footwear (QC): 6 Toileting Hygiene (QC): 6 Toilet Transfer (QC): 6 Assessment/Plan Assessment and Plan Assess & Plan/Chief Complaint Assessment: Closed head injury with LOC now with recurrent falls Dizziness CRI DM HTN HLP Anemia Plan: MRI IRF protocol Home meds Fall risk prevention 03/24/20: Inner ear dysfunction exercises Monitor Tely for pauses Monitor closely 03/26/20: Doing very well No dizziness No falls 03/27/20: Monitor dizziness and headache Use walker for ambulation to prevent falls Check iron level 03/28/20: Loop recorder today May need iron infusions Labs pending 03/29/20: Continue iron infusions Monitor blood pressure Loop recorder placed yesterday Focus on bowels today 03/30/20: BM management HH at DC Last dose of IV Venofer tomorrow (1) LOC (loss of consciousness) (2) Closed head injury Status: Acute (3) Diabetes mellitus (4) Renal insufficiency (5) Hyperlipemia (6) Hypertension (7) Scalp hematoma Status: Acute (8) Arm paresthesia, right Status: Acute (9) Vertigo Status: Acute (10) Concussion Status: Acute (11) Syncope and collapse Status: Acute MADI MCDANIELS DO Mar 30, 2020 10:56
--- NOTE | 2020-03-30 12:17 | Physical Therapy Daily Note ---
PT Daily Note-Current Subjective Pt sitting in recliner upon arrival. Pt agrees to PT for QC scoring due to DC tomorrow. Pain Location: No Pain Reported Mental Status Patient Orientation: Person, Place, Time, Situation Transfers SCALE: Activities may be completed with or without assistive devices. 1-Qtfimowokc-wqvnvwa completes the activity by him/herself with no assistance from a helper. 5-Set-up or Clean-up Assistance-helper sets up or cleans up; patient completes activity. [place] assists only prior to or following the activity. 4-Supervision or Touching Assistance-helper provides verbal cues and/or ashlyn elicia/steadying and/or contact guard assistance as patient completes activity. Assistance may be provided throughout the activity or intermittently. 3-Partial/Moderate Assistance-helper does LESS THAN HALF the effort. [place] lifts, holds or supports trunk or limbs, but provides less than half the effort. 2-Substantial/Maximal Assistance-helper does MORE THAN HALF the effort. [place] lifts or holds trunk or limbs and provides more than half the effort. 4-Hbbifpvsq-zfjbpx does ALL the effort. Patient does none of the effort to complete the activity. Or, the assistance of 2 or more helpers is required for the patient to complete the activity. If activity was not attempted, code reason: 7-Patient Refused. 9-Not Applicable-not attempted and the patient did not perform the activity before the current illness, exacerbation or injury. 10-Not Attempted due to Environmental Limitations-(lack of equipment, weather restraints, etc.). 88-Not Attempted due to Medical Conditions or Safety Concerns. Roll Left & Right (QC): 6 Sit to Lying (QC): 6 Lying to Sitting/Side of Bed(Q: 6 Sit to Stand (QC): 6 Chair/Keb-us-Wqcpe Xfer(QC): 6 Toilet Transfer (QC): 6 Car Transfer (QC): 6 Weight Bearing Full Weight Bearing Full Weight Bearing Gait Training Does the Patient Walk?: Yes Distance: 150' x2 Walk 10 feet (QC): 6 Walk 50 ft with 2 Turns(QC): 6 Walk 150 ft (QC): 6 Walking 10ft/uneven surface-QC: 6 Gait Persons Needed: 1 Gait Assistive Device: FWW Wheelchair Training Does the Pt Use a Wheelchair?: No Stair Training Stair Training: Handrails/: 1 handrail #of Steps: 12 1 Step (curb) (QC): 6 4 Steps (QC): 6 12 Steps (QC): 6 Stairs: Pattern: Reciprocal Balance Picking up an Object (QC): 5 Exercises NuStep Minutes: 10 NuStep Workload: 4 Treatments TF to standing then uses BR. Amb. in hallway and completes QC scoring items listed above. Returns to room to rest in recliner at end of tx. All needs met, call light in hand. Assessment Current Status: Excellent Progress Pt kenny. tx well. Pt is made Ad carloz in room, Nurse is notified. PT Short Term Goals Short Term Goals Time Frame: Mar 30, 2020 Sit to lyin Lying to sitting on side of be: 4 Walk 150 feet: 4 4 steps: 4 PT Box Car Washer Goals Box Car Washer Goals PT Box Car Washer Goals Time Frame: Apr 10, 2020 Roll Left & Right (QC): 6 Sit to Lying (QC): 6 Lying-Sitting on Side/Bed(QC): 6 Sit to Stand (QC): 6 Chair/Ept-iu-Nhtxe Xfer(QC): 6 Toilet Transfer (QC): 6 Car Transfer (QC): 6 Does the Patient Walk: Yes Walk 10 feet (QC): 6 Walk 50ft with 2 Turns (QC): 6 Walk 150 ft (QC): 6 Walking 10ft on Uneven Surface: 6 1 Step (curb) (QC): 6 4 Steps (QC): 6 12 Steps (QC): 5 Picking up an Object (QC): 5 Does the Pt use WC or Scooter?: No Wheel 50 feet with 2 turns (QC: 9 Wheel 150 feet: 9 PT Plan Problem List Problem List: Activity Tolerance Treatment/Plan Treatment Plan: Continue Plan of Care Treatment Plan: Bed Mobility, Education, Functional Activity Alicia, Functional Strength, Group Therapy, Gait, Safety, Therapeutic Exercise, Transfers Treatment Duration: Apr 10, 2020 Frequency: At least 5 of 7 days/Wk (IRF) Estimated Hrs Per Day: 1.5 hours per day Patient and/or Family Agrees t: Yes Time/GCodes Time In: 1115 Time Out: 1215 Total Billed Treatment Time: 60 Total Billed Treatment 1, GT (15m), EX (15m) & FA x2 (30m) BELKIS PARR GRAPHICS EDIT TECHNICIAN Mar 30, 2020 12:17
--- NOTE | 2020-03-30 14:35 | Physical Therapy Daily Note ---
PT Daily Note-Current Subjective Pt sitting in recliner asleep upon arrival. Pt agrees to PT. Pain Location: No Pain Reported Mental Status Patient Orientation: Person, Place, Time, Situation Transfers SCALE: Activities may be completed with or without assistive devices. 5-[place]q-kmybmqp completes the activity by him/herself with no assistance from a helper. 5-Set-up or Clean-up Assistance-helper sets up or cleans up; patient completes activity. [place] assists only prior to or following the activity. 4-Supervision or Touching Assistance-helper provides verbal cues and/or touching/steadying and/or contact guard assistance as patient completes activity. Assistance may be provided throughout the activity or intermittently. 3-Partial/Moderate Assistance-helper does LESS THAN HALF the effort. [place] lifts, holds or supports trunk or limbs, but provides less than half the effort. 2-Substantial/Maximal Assistance-helper does MORE THAN HALF the effort. [place] lifts or holds trunk or limbs and provides more than half the effort. 7-Jwtmjmswc-pmrmjp does ALL the effort. Patient does none of the effort to co mplete the activity. Or, the assistance of 2 or more helpers is required for the patient to complete the activity. If activity was not attempted, code reason: 7-Patient Refused. 9-Not Applicable-not attempted and the patient did not perform the activity before the current illness, exacerbation or injury. 10-Not Attempted due to Environmental Limitations-(lack of equipment, weather restraints, etc.). 88-Not Attempted due to Medical Conditions or Safety Concerns. Sit to Stand (QC): 6 Weight Bearing Full Weight Bearing Full Weight Bearing Wheelchair Training Does the Pt Use a Wheelchair?: No Exercises Supine Ex: Ankle pumps, Quad Set, Glut sets, Heel Slides, Straight leg raise, Hip abd/add Supine Reps: 15 Seated Therapy Exercises: Ankle pumps, Long arc quads, Hip flexion, Kicking activity, Hip abd/add, Glut set Seated Reps: 15 Treatments Pt completes Seated & Supine Ex HEP given yesterday as review for DC tomorrow. Pt also completes Sit to stand. Pt resting in recliner with all needs met, call light in hand. Assessment Current Status: Excellent Progress Pt has made progress with strength, activity tolerance, mobility and safety of tasks. PT Short Term Goals Short Term Goals Time Frame: Mar 30, 2020 Sit to lyin Lying to sitting on side of be: 4 Walk 150 feet: 4 4 steps: 4 PT Nursing Home Goals Protective Services Case Worker Goals PT Protective Services Case Worker Goals Time Frame: Apr 10, 2020 Roll Left & Right (QC): 6 Sit to Lying (QC): 6 Lying-Sitting on Side/Bed(QC): 6 Sit to Stand (QC): 6 Chair/Niq-lv-[place] Xfer(QC): 6 Toilet Transfer (QC): 6 Car Transfer (QC): 6 Does the Patient Walk: Yes Walk 10 feet (QC): 6 Walk 50ft with 2 Turns (QC): 6 Walk 150 ft (QC): 6 Walking 10ft on Uneven Surface: 6 1 Step (curb) (QC): 6 4 Steps (QC): 6 12 Steps (QC): 5 Picking up an Object (QC): 5 Does the Pt use WC or Scooter?: No Wheel 50 feet with 2 turns (QC: 9 Wheel 150 feet: 9 PT Plan Problem List Problem List: Activity Tolerance Treatment/Plan Treatment Plan: Continue Plan of Care Treatment Plan: Bed Mobility, Education, Functional Activity Alicia, Functional Strength, Group Therapy, Gait, Safety, Therapeutic Exercise, Transfers Treatment Duration: Apr 10, 2020 Frequency: At least 5 of 7 days/Wk (IRF) Estimated Hrs Per Day: 1.5 hours per day Patient and/or Family Agrees t: Yes Time/GCodes Time In: 1330 Time Out: 1400 Total Billed Treatment Time: 30 Total Billed Treatment 1, EX x2 (30m) BELKIS PARR BIOLOGICAL CHEMIST Mar 30, 2020 14:35
[2020-03-30 17:23] VITALS: BP 141/65
--- NOTE | 2020-03-30 22:06 | D/C HH Face to Face Order ---
D/C Face to Face Orders Reconcile Patient Problems Problems Reviewed?: Yes Instructions for Patient Via [facility], Patient Instructions/FollowUp: Dr Webster in 1 week Physician to follow Patient: Eleanor Discharge Diet for Home: ADA Diet Patient Problems: Syncope CRF Patient Data-Allergies,Ht & Wt Patient Allergies: Coded Allergies: No Known Drug Allergies (Unverified , 02/20/20) Home Health Need/Face to Face Date of Face to Face: Mar 30, 2020 Clinical Findings: Generalized weakness and fatigue, Instability, Muscle weakness, Unsteady gait I have seen Pt fpqn-ve-hhgg: Yes Discharged To: Home Diagnosis/Conditions: Syncope Patient is Homebound due to: [place] fall risk due to instabilty, Muscle weakness Homebound Status Due to the above stated illness, injury or surgical procedure (medical condition or diagnosis) and associated clinical findings, the patient is homebound because of his/her inability to leave home except with aid of a supportive device and/or person AND leaving the home requires a considerable and taxing effort or is medically contraindicated. Pt req the following assistanc: Walker [facility] Nursing Orders Home Health Services Order: Nursing Services, Physical Therapy-Evaluate & Treat Certify Stmt I certify that this patient is under my care and that I, a nurse practitioner or a physician; a customer support assistant working with me, had a face to face encounter that - meets the physician face to face encounter requirements with this patient as dated. MADI WEBSTER DO Mar 30, 2020 22:06
[2020-03-31] MEDS: inSUlin ASPART (NovoLOG) 1 UNIT/0.01 ML (CHARGE PER UNIT) SC SCH ×2 (05:55→12:02)
[2020-03-31 06:00] VITALS: BP 154/60
[2020-03-31 08:00] VITALS: BP 134/63
[2020-03-31] MEDS: VITAMIN E 180 MG (400 UNITS) CAP PO SCH (09:02)
[2020-03-31] MEDS: LORATADINE (CLARITIN) 10 MG TAB PO SCH (09:02)
[2020-03-31] MEDS: LOSARTAN 25 MG (COZAAR) TAB PO SCH (09:02)
[2020-03-31] MEDS: ROSUVASTATIN 5 MG (CRESTOR) TABLET PO SCH (09:02)
[2020-03-31] MEDS: CARVEDILOL 12.5 MG (COREG) TABLET PO SCH (09:02)
[2020-03-31] MEDS: IRON SUCROSE 200 MG/10 ML (VENOFER) VIAL IV SCH (09:02)
[2020-03-31] MEDS: VITAMIN D3 10 MCG (400 UNITS) TABLET PO SCH (09:02)
[2020-03-31] MEDS: PANTOPRAZOLE 40 MG (PROTONIX) TAB PO SCH (09:02)
[2020-03-31] MEDS: glipiZIDE XL 10 MG (GLUCOTROL XL) TAB PO SCH (09:02)
[2020-03-31] MEDS: DOCUSATE SODIUM 100 MG (COLACE) CAP PO SCH (09:03)
[2020-03-31] MEDS: SENNA W/DOCUSATE (SENOKOT S) TABLET PO SCH (09:03)
[2020-03-31] MEDS: polyethylene glycoL POWDER 17 GM (MIRALAX) PACK PO SCH (09:03)
--- NOTE | 2020-03-31 09:12 | Therapy Team Discharge Summary ---
Therapy Discharge Summary Discharge Recommendations Date of Discharge Physical Therapy Patient came to rehab with closed head injury with LOC. Upon evaluation patient performed bed mobility with SBA, supine <-> sit min assist, sit <-> stand min assist, transfers min assist, car transfer CGA, ambulated 150' with a rolling walker with min assist (including 50' with at least 2 turns of 90 degrees and 10' over an uneven surface), can hop picker an object from the floor with min assist, and can go up and down 4 steps using 2 handrails with min assist. Patient has been performing bed mobility and transfer training, balance and endurance training, functional strengthening, stair training, gait training, and education. Patient has made good progress and has met all of her assisted goals. Now, patient performs bed mobility and transfers with independence, car transfer independent, ambulates 150' with a rolling walker with independence (including 50' with at least 2 turns of 90 degrees and 10' over an uneven surface), can hop picker an object from the floor with setup, and can go up and down 12 steps using 1 handrail with independence. Patient is discharging from this facility today and will be discharged from PT at this time. Occupational Therapy Decreased Activ Tolerance, Impaired Self-Care Skills, Restricted Funct UE ROM PT Group Home Goals Aluminum Siding Applicator Goals PT Group Home Goals Time Frame: Apr 10, 2020 Roll Left to Right (QC): 6 Sit to Lying (QC): 6 Lying-Sitting on Side/Bed(QC): 6 Sit to Stand (QC): 6 Chair/Ofh-re-Zkgbe Xfer(QC): 6 Car Transfer (QC): 6 Does the Patient Walk: Yes Walk 10 feet (QC): 6 Walk 10ft-Uneven Surface(QC): 6 Walk 50ft with 2 Turns (QC): 6 Walk 150 ft (QC): 6 Does the Pt use WC or Scooter?: No Wheel 50 feet with 2 turns (QC: 9 1 Step (curb) (QC): 6 4 Steps (QC): 6 12 Steps (QC): 5 Picking up an Object (QC): 5 OT Aluminum Siding Applicator Goals Group Home Goals Time Frame: Apr 14, 2020 Eating (QC): 6 (met) Oral Hygiene (QC): 6 (met) Shower/Bathe Self (QC): 6 (met) Upper Body Dressing (QC): 6 (met) Lower Body Dressing (QC): 6 (met) On/Off Footwear (QC): 6 (met) Toileting Hygiene (QC): 6 (met) Toilet/Commode Transfer (QC): 6 Additional Goals: 1-Demonstrate ADL Tasks, 2-Verbalize Understanding, 3- ImproveStrength/Alicia 1=Demonstrate adherence to instructed precautions during ADL tasks. 2=Patient will verbalize/demonstrate understanding of assistive devices/modifications for ADL. 3=Patient will improve strength/tolerance for activity to enable patient to perform ADL's. ALEXANDRA CHRISTY PT Mar 31, 2020 09:12
--- NOTE | 2020-03-31 09:31 | NUR ---
CM/SS DISCHARGE Patient discharged to home as planned, her son is coming about 1230 to get her. HHC: Finalized with [facility] for RN and PT. DME: FWW finalized with [facility], agency will deliver to patient room by noon. IMM2 presented, signed, charted. Unit RN updated.
--- NOTE | 2020-03-31 10:43 | Discharge Summary ---
Diagnosis/Chief Complaint Date of Admission Mar 23, 2020 at 11:39 Date of Discharge Discharge Date: Mar 31, 2020 Discharge Diagnosis Assessment: Closed head injury with LOC now with recurrent falls Dizziness CRI DM HTN HLP Anemia Plan: MRI IRF protocol Home meds Fall risk prevention 03/24/20: Inner ear dysfunction exercises Monitor Tely for pauses Monitor closely 03/26/20: Doing very well No dizziness No falls 03/27/20: Monitor dizziness and headache Use walker for ambulation to prevent falls Check iron level 03/28/20: Loop recorder today May need iron infusions Labs pending 03/29/20: Continue iron infusions Monitor blood pressure Loop recorder placed yesterday Focus on bowels today 03/30/20: BM management HH at DC Last dose of IV Venofer tomorrow (1) LOC (loss of consciousness) (2) Closed head injury Status: Acute (3) Diabetes mellitus (4) Renal insufficiency (5) Hyperlipemia (6) Hypertension (7) Scalp hematoma Status: Acute (8) Arm paresthesia, right Status: Acute (9) Vertigo Status: Acute (10) Concussion Status: Acute (11) Syncope and collapse Status: Acute Discharge Summary Discharge Physical Examination Allergies: Coded Allergies: No Known Drug Allergies (Unverified , 02/20/20) Vitals & I&Os Vital Signs Date Time Temp Pulse Resp B/P (MAP) Pulse Ox O2 Delivery O2 Flow Rate FiO2 03/31/20 13:26 36.6 70 20 134/63 96 Room Air General Appearance: Alert, Oriented X3, Cooperative Respiratory: Clear to Auscultation Cardiovascular: Regular Rate Neuro: Normal Gait Psych/Mental Status: Mental Status NL Hospital Course Was the Problem List Reviewed?: Yes Patient had an uneventful course for 8 days after she experienced multiple falls and 2 days after a fall with CHI with LOC in need of fall prevention skills and increase ambulation and regaining of ADL's. PLOF was independent without the use of AD. Patient had Cardiology consultation who reviewed the 30 day monitor she had placed after DC from hospital last time which ultimately required loop recorder placement. Labs remained stable and she did receive 2 doses of Venofer for iron def anemia and anemia of kidney disease. Overall she had no issues during stay and was able to improve her status and use FWW and was stable for DC home with HH. Labs (last 24 hrs) Laboratory Tests 03/23/20 17:01: Glucometer 215H 03/23/20 21:43: Glucometer 133H 03/24/20 05:21: Glucometer 91 03/24/20 06:30: White Blood Count 5.3, Red Blood Count 2.89L, Hemoglobin 8.4L, Hematocrit 26L, Mean Corpuscular Volume 89, Mean Corpuscular Hemoglobin 29, Mean Corpuscular Hemoglobin Concent 33, Red Cell Distribution Width 12.2, Platelet Count 258, Mean Platelet Volume 9.9, Immature Granulocyte % (Auto) 0, Neutrophils (%) (Auto ) 60, Lymphocytes (%) (Auto) 25, Monocytes (%) (Auto) 11, Eosinophils (%) (Auto) 3, Basophils (%) (Auto) 0, Neutrophils # (Auto) 3.2, Lymphocytes # (Auto) 1.3, Monocytes # (Auto) 0.6, Eosinophils # (Auto) 0.2, Basophils # (Auto) 0.0, Immature Granulocyte # (Auto) 0.0, Sodium Level 139, Potassium Level 4.0, Chloride Level 106, Carbon Dioxide Level 22, Anion Gap 11, Blood Urea Nitrogen 22H, Creatinine 1.60H, Estimat Glomerular Filtration Rate 31, BUN/Creatinine Ratio 14, Glucose Level 98, Calcium Level 9.0, Corrected Calcium 9.2, Total Bilirubin 0.5, Aspartate Amino Transf (AST/SGOT) 18, Alanine Aminotransferase (ALT/SGPT) 9, Alkaline Phosphatase 51, Total Protein 6.3L, Albumin 3.8 03/24/20 11:57: Glucometer 264H 03/24/20 16:09: Glucometer 104 03/24/20 20:06: Glucometer 285H 03/25/20 05:54: Glucometer 159H 03/25/20 11:49: Glucometer 266H 03/25/20 17:06: Glucometer 133H 03/25/20 21:14: Glucometer 228H 03/26/20 05:58: Glucometer 115H 03/26/20 11:20: Glucometer 185H 03/26/20 16:55: Glucometer 148H 03/26/20 20:58: Glucometer 275H 03/27/20 05:25: White Blood Count 4.6, Red Blood Count 2.93L, Hemoglobin 8.5L, Hematocrit 26L, Mean Corpuscular Volume 89, Mean Corpuscular Hemoglobin 29, Mean Corpuscular Hemoglobin Concent 32, Red Cell Distribution Width 12.3, Platelet Count 308, Mean Platelet Volume 10.0, Immature Granulocyte % (Auto) 0, Neutrophils (%) (Auto) 59, Lymphocytes (%) (Auto) 25, Monocytes (%) (Auto) 12, Eosinophils (%) (Auto) 4, Basophils (%) (Auto) 0, Neutrophils # (Auto) 2.7, Lymphocytes # (Auto) 1.1, Monocytes # (Auto) 0.5, Eosinophils # (Auto) 0.2, Basophils # (Auto) 0.0, Immature Granulocyte # (Auto) 0.0, Sodium Level 139, Potassium Level 4.4, Chloride Level 106, Carbon Dioxide Level 22, Anion Gap 11, Blood Urea Nitrogen 24H, Creatinine 1.48H, Estimat Glomerular Filtration Rate 34, BUN/Creatinine Ratio 16, Glucose Level 75, Calcium Level 9.1, Corrected Calcium 9.3, Iron Level 46, Total Bilirubin 0.5, Aspartate Amino Transf (AST/SGOT) 12, Alanine Aminotransferase (ALT/SGPT) 8, Alkaline Phosphatase 58, Total Protein 6.4, Albumin 3.7 03/27/20 05:42: Glucometer 91 03/27/20 11:09: Glucometer 288H 03/27/20 16:06: Glucometer 151H 03/27/20 20:30: Glucometer 269H 03/28/20 05:45: Glucometer 125H 03/28/20 11:23: Glucometer 245H 03/28/20 15:25: Glucometer 239H 03/28/20 20:18: Glucometer 210H 03/29/20 05:33: Glucometer 134H 03/29/20 11:00: Glucometer 231H 03/29/20 16:48: Glucometer 154H 03/29/20 21:12: Glucometer 243H 03/30/20 05:19: Glucometer 119H 03/30/20 10:50: Glucometer 227H 03/30/20 16:08: Glucometer 172H 03/30/20 20:07: Glucometer 235H 03/31/20 05:25: Glucometer 124H 03/31/20 11:05: Glucometer 230H Microbiology 03/27/20 MRSA Screen - Final, Complete MRSA not isolated Pending Labs Microbiology Date/Time Source Procedure Growth Status 03/27/20 11:32 Nasal MRSA Screen - Final MRSA not isolated Complete Laboratory Tests 03/23/20 17:01: Glucometer 215 03/23/20 21:43: Glucometer 133 03/24/20 05:21: Glucometer 91 03/24/20 06:30: White Blood Count 5.3, Red Blood Count 2.89, Hemoglobin 8.4, Hematocrit 26, Mean Corpuscular Volume 89, Mean Corpuscular Hemoglobin 29, Mean Corpuscular Hemoglobin Concent 33, Red Cell Distribution Width 12.2, Platelet Count 258, Mean Platelet Volume 9.9, Immature Granulocyte % (Auto) 0, Neutrophils (%) (Auto) 60, Lymphocytes (%) (Auto) 25, Monocytes (%) (Auto) 11, Eosinophils (%) (Auto) 3, Basophils (%) (Auto) 0, Neutrophils # (Auto) 3.2, Lymphocytes # (Auto) 1.3, Monocytes # (Auto) 0.6, Eosinophils # (Auto) 0.2, Basophils # (Auto) 0.0, Immature Granulocyte # (Auto) 0.0, Sodium Level 139, Potassium Level 4.0, Chloride Level 106, Carbon Dioxide Level 22, Anion Gap 11, Blood Urea Nitrogen 22, Creatinine 1.60, Estimat Glomerular Filtration Rate 31, BUN/Creatinine Ratio 14, Glucose Level 98, Calcium Level 9.0, Corrected Calcium 9.2, Total Bilirubin 0.5, Aspartate Amino Transf (AST/SGOT) 18, Alanine Aminotransferase (ALT/SGPT) 9, Alkaline Phosphatase 51, Total Protein 6.3, Albumin 3.8 03/24/20 11:57: Glucometer 264 03/24/20 16:09: Glucometer 104 03/24/20 20:06: Glucometer 285 03/25/20 05:54: Glucometer 159 03/25/20 11:49: Glucometer 266 03/25/20 17:06: Glucometer 133 03/25/20 21:14: Glucometer 228 03/26/20 05:58: Glucometer 115 03/26/20 11:20: Glucometer 185 03/26/20 16:55: Glucometer 148 03/26/20 20:58: Glucometer 275 03/27/20 05:25: White Blood Count 4.6, Red Blood Count 2.93, Hemoglobin 8.5, Hematocrit 26, Mean Corpuscular Volume 89, Mean Corpuscular Hemoglobin 29, Mean Corpuscular Hemoglobin Concent 32, Red Cell Distribution Width 12.3, Platelet Count 308, Mean Platelet Volume 10.0, Immature Granulocyte % (Auto) 0, Neutrophils (%) (Auto) 59, Lymphocytes (%) (Auto) 25, Monocytes (%) (Auto) 12, Eosinophils (%) (Auto) 4, Basophils (%) (Auto) 0, Neutrophils # (Auto) 2.7, Lymphocytes # (Auto) 1.1, Monocytes # (Auto) 0.5, Eosinophils # (Auto) 0.2, Basophils # (Auto) 0.0, Immature Granulocyte # (Auto) 0.0, Sodium Level 139, Potassium Level 4.4, Chloride Level 106, Carbon Dioxide Level 22, Anion Gap 11, Blood Urea Nitrogen 24, Creatinine 1.48, Estimat Glomerular Filtration Rate 34, BUN/Creatinine Ratio 16, Glucose Level 75, Calcium Level 9.1, Corrected Calcium 9.3, Iron Level 46, Total Bilirubin 0.5, Aspartate Amino Transf (AST/SGOT) 12, Alanine Aminot ransferase (ALT/SGPT) 8, Alkaline Phosphatase 58, Total Protein 6.4, Albumin 3.7 03/27/20 05:42: Glucometer 91 03/27/20 11:09: Glucometer 288 03/27/20 16:06: Glucometer 151 03/27/20 20:30: Glucometer 269 03/28/20 05:45: Glucometer 125 03/28/20 11:23: Glucometer 245 03/28/20 15:25: Glucometer 239 03/28/20 20:18: Glucometer 210 03/29/20 05:33: Glucometer 134 03/29/20 11:00: Glucometer 231 03/29/20 16:48: Glucometer 154 03/29/20 21:12: Glucometer 243 03/30/20 05:19: Glucometer 119 03/30/20 10:50: Glucometer 227 03/30/20 16:08: Glucometer 172 03/30/20 20:07: Glucometer 235 03/31/20 05:25: Glucometer 124 03/31/20 11:05: Glucometer 230 Discharge Home Medications: Active Scripts Active Meclizine HCl 25 Mg Tablet 12.5 Mg PO BID PRN Amlodipine Besylate 5 Mg Tablet 5 Mg PO DAILY Reported Refresh Optive Eye Drops (Carboxymethylcellulos/Glycerin) 15 Ml Drops 1 Drop OU PRN PRN Excedrin Extra Strength Caplet (Aspirin/Acetaminophen/Caffeine) 1 Each Tablet 1 Each PO PRN PRN Vitamin D3 (Vitamin D) 10 Mcg Tablet 10 Mcg PO DAILY 400 UNITS Vitamin E 1,000 Unit Capsule 1,000 Unit PO DAILY Zyrtec (Cetirizine HCl) 10 Mg Tablet 10 Mg PO DAILY Losartan Potassium 25 Mg Tablet 25 Mg PO DAILY Carvedilol 25 Mg Tablet 25 Mg PO BID Rosuvastatin Calcium 5 Mg Tablet 5 Mg PO DAILY Citalopram HBr (Citalopram Hydrobromide) 20 Mg Tablet 20 Mg PO DAILY Glipizide ER (Glipizide) 10 Mg Tab.er.24 10 Mg PO BID Pantoprazole Sodium 40 Mg Tablet.dr 40 Mg PO DAILY TAKES BEFORE BREAKFAST Instructions to patient/family Please see electronic discharge instructions given to patient. Diagnosis/Problems Diagnosis/Problems (1) LOC (loss of consciousness) (2) Closed head injury Status: Acute (3) Diabetes mellitus (4) Renal insufficiency (5) Hyperlipemia (6) Hypertension (7) Scalp hematoma Status: Acute (8) Arm paresthesia, right Status: Acute (9) Vertigo Status: Acute (10) Concussion Status: Acute (11) Syncope and collapse Status: Acute Clinical Quality Measures DVT/VTE Risk/Contraindication: Risk Factor Score Per Nursin RFS Level Per Nursing on Admit: 2=Moderate MADI MCDANIELS DO Mar 31, 2020 10:43
--- NOTE | 2020-03-31 11:34 | Cardiology Progress Note ---
Subjective Date Seen by Provider: Mar 31, 2020 Time Seen by Provider: 11:33 Subjective/Events-last exam Patient is sitting in a chair, no new complaint. Review of Systems General: No Chills, No Night Sweats, No Fatigue, No Malaise, No Appetite, No Other HEENT: No Head Aches, No Visual Changes, No Eye Pain, No Ear Pain, No Dysphasia, No Sinus Congestion, No Post Nasal Drip, No Sore Throat, No Other Pulmonary: No Dyspnea, No Cough, No Pleuritic Chest Pain, No Other Cardiovascular: No: Chest Pain, Palpitations, Orthopnea, Paroxysmal Noc. Dyspnea, Edema, Lt Headedness, Other Objective-Cardiology Exam Last Set of Vital Signs Vital Signs 03/31/20 03/31/20 06:00 09:00 Temp 36.6 Pulse 71 Resp 20 B/P (MAP) 154/60 (91) Pulse Ox 96 O2 Delivery Room Air Capillary Refill : Less Than 3 Seconds I&O Intake and Output 03/31/20 00:00 Intake Total 1930 ml Balance 1930 ml Intake Oral 1930 ml # Voids 9 General: Alert, Oriented X3, Cooperative HEENT: Atraumatic, PERRLA Neck: Supple, No JVD, No Thyromegaly Lungs: Clear to Auscultation, Normal Air Movement Heart: Regular Rate, Normal S1, Normal S2, No Murmurs Abdomen: Normal Bowel Sounds, Soft, No Tenderness, No Hepatosplenomegaly, No Masses Extremities: No Clubbing, No Cyanosis, No Edema, Normal Pulses, No Tenderness/Swelling Skin: No Rashes, No Breakdown, No Significant Lesion Neuro: Normal Gait, Normal Speech, Strength at 5/5 X4 Ext, Normal Tone, Sensation Intact Psych/Mental Status: Mental Status NL, Mood NL A/P-Cardiology Admission Diagnosis Syncope HTN GERD DM Assessment/Plan Syncope, near syncope, probably orthostatic hypotension. S/p ILR on 03/28/[address] Ames. MRI of the brain on Mar 23, 2020: Small punctate focus of restricted diffusion in the anterior medial aspect of the right frontal lobe with more faint areas of restricted diffusion in the left basal ganglia and left thalamus, which may represent foci of acute/subacute ischemia. No associated mass effect or hemorrhage is seen. - Management per stroke team, maintained on ASA.Pharmacological stress test was negative for ischemia. Normal LV function with no wall motion abnormalities. Normal myocardial perfusion imaging during rest and stress. Echocardiogram of 02-21-[address] Underwood showed concentric LVH. LVEF 65-70%. Grade 1 diastolic dysfunction. PASP 25-30mmHg DM 2, management per medical services HTN, elevated this morning, I am hesitant to do changes to her blood pressure due to the orthostatic hypotension, I will try EVERETT hose and evaluate tolerance and response GERD Okay for discharge, follow-up with Dr. Ames as an outpatient Clinical Quality Measures DVT/VTE Risk/Contraindication: Risk Factor Score Per Nursin RFS Level Per Nursing on Admit: 2=Moderate NUBIA SINGH MD Mar 31, 2020 11:34
[2020-03-31 13:26] VITALS: BP 134/63
--- NOTE | 2020-04-03 12:32 | Therapy Team Discharge Summary ---
Therapy Discharge Summary Discharge Recommendations Date of Discharge Mar 31, 2020 at 13:15 Occupational Therapy Pt admitted to ARU after closed head injury with LOC. At PLOF pt was independent with all ADLs and functional mobility without AD/AE. At admission, pt was independent with eating, CGA oral care, SBA showering, set up upper body dressing, CGA lower body dressing, set up footwear and CGA toileting. OT txs focused on increasing safety and independence with ADLs an functional mobility as well as increasing BUE strength and functional endurance. At discharge, pt was independent with all ADLS, meeting all LTGs. Pt discharged from facility, d/c from OT at this time. Decreased Activ Tolerance, Restricted Funct UE ROM PT Senior Living Goals Senior Living Goals PT Senior Living Goals Time Frame: Apr 10, 2020 Roll Left to Right (QC): 6 Sit to Lying (QC): 6 Lying-Sitting on Side/Bed(QC): 6 Sit to Stand (QC): 6 Chair/Pha-ap-Difow Xfer(QC): 6 Car Transfer (QC): 6 Does the Patient Walk: Yes Walk 10 feet (QC): 6 Walk 10ft-Uneven Surface(QC): 6 Walk 50ft with 2 Turns (QC): 6 Walk 150 ft (QC): 6 Does the Pt use WC or Scooter?: No Wheel 50 feet with 2 turns (QC: 9 1 Step (curb) (QC): 6 4 Steps (QC): 6 12 Steps (QC): 5 Picking up an Object (QC): 5 OT Senior Living Goals Senior Living Goals Time Frame: Apr 14, 2020 Eating (QC): 6 (met) Oral Hygiene (QC): 6 (met) Shower/Bathe Self (QC): 6 (met) Upper Body Dressing (QC): 6 (met) Lower Body Dressing (QC): 6 (met) On/Off Footwear (QC): 6 (met) Toileting Hygiene (QC): 6 (met) Toilet/Commode Transfer (QC): 6 (met) Additional Goals: 1-Demonstrate ADL Tasks, 2-Verbalize Understanding, 3- ImproveStrength/Alicia 1=Demonstrate adherence to instructed precautions during ADL tasks. 2=Patient will verbalize/demonstrate understanding of assistive devices/modifications for ADL. 3=Patient will improve strength/tolerance for activity to enable patient to perform ADL's. HARRY RIVERA OT Apr 03, 2020 12:32
== END 2020-03-31 13:15 | disposition home health service (06) | DRG 950 ==
LOC: UNDOADMIN 11:15
PROVIDERS: ADMIT Internal Medicine; ATTEND Internal Medicine
DX: S06.0X1D Concussion with loss of consciousness of 30 minutes or less, subsequent encounter (principal); Z91.81 History of falling; S00.03XD Contusion of scalp, subsequent encounter; H81.10 Benign paroxysmal vertigo, unspecified ear; S10.83XD Contusion of other specified part of neck, subsequent encounter; I12.9 Hypertensive chronic kidney disease with stage 1 through stage 4 chronic kidney disease, or unspecified chronic kidney disease; E11.22 Type 2 diabetes mellitus with diabetic chronic kidney disease; N18.9 Chronic kidney disease, unspecified; D63.1 Anemia in chronic kidney disease; D50.9 Iron deficiency anemia, unspecified; E78.5 Hyperlipidemia, unspecified; E78.00 Pure hypercholesterolemia, unspecified; F32.9 Major depressive disorder, single episode, unspecified; K21.9 Gastro-esophageal reflux disease without esophagitis; R20.2 Paresthesia of skin; Z87.891 Personal history of nicotine dependence; Z79.84 Long term (current) use of oral hypoglycemic drugs; W18.30XD Fall on same level, unspecified, subsequent encounter; Z23 Encounter for immunization
CPT/HCPCS: 36415; 70551; 80053; 82962; 83540; 85025; 87081; 90662; 93880

== ENCOUNTER → 2020-03-28 | Day surgery (SDC) | payer MEDICARE ==
[~2020-03-28] MED LIST changes: +AMLO-250 PO; -AMLO5TAB9 PO
--- NOTE | 2020-03-28 11:17 | OPERATIVE REPORT ---
DATE OF SERVICE: 03/28/2020 PREOPERATIVE DIAGNOSIS: Syncope. POSTOPERATIVE DIAGNOSIS: Syncope. PROCEDURE: Implantable loop recorder implantation. INDICATIONS: The patient is a 79-year-old lady who has had relatively recent syncope. Holter monitor and event monitor have not been able to document an arrhythmia. Implantable loop recorder was carried out today after having obtained an informed consent. DESCRIPTION OF PROCEDURE: [facility] The left prepectoral area was prepared and draped in the usual sterile fashion. Lidocaine 1% was used for local anesthesia. The tools provided with the implantable Medtronic Reveal LINQ device were used to make a pocket anterior to the left fourth intercostal space into which the device was placed and the wound edges were closed using Dermabond and Steri-Strips. The device is Medtronic Reveal LINQ with serial #[id number]. The patient tolerated the procedure well. Job ID: [id number] DocumentID: [id number] Dictated Date: 03/28/2020 10:40:17 Arts And Crafts Teacher Date: 03/28/2020 11:16:34 Dictated By: JANES CID MD, MA, FACP, FACC,
== END | disposition home or self-care (01) ==
LOC: CATH 11:00
PROVIDERS: ATTEND Internal Medicine Cardiovascular Disease
DX: R55 Syncope and collapse (principal); I10 Essential (primary) hypertension; K21.9 Gastro-esophageal reflux disease without esophagitis; E11.9 Type 2 diabetes mellitus without complications; Z79.84 Long term (current) use of oral hypoglycemic drugs; Z79.82 Long term (current) use of aspirin; Z79.899 Other long term (current) drug therapy; Z87.891 Personal history of nicotine dependence; Z82.3 Family history of stroke; Z83.3 Family history of diabetes mellitus
CPT/HCPCS: 33285; C1764

== ENCOUNTER 2021-01-15 05:37 | Outpatient (CLI) | payer MEDICARE ==
[~2021-01-15] VITALS: Ht 155 cm; Wt 70.5 kg
[2021-01-15] MEDS ORDERED: ASPI-999 PO (13:45)
[2021-01-15] MEDS ORDERED: ASCO500C17 PO (13:45)
== END 2021-01-15 15:14 | disposition home or self-care (01) ==
LOC: PREOP 05:37
PROVIDERS: ATTEND Surgery
DX: Z01.818 Encounter for other preprocedural examination (principal)

== ENCOUNTER → 2021-01-22 | Day surgery (SDC) | payer MEDICARE ==
[2021-01-22] VITALS (7 sets, daily range): BP systolic 145–176; BP diastolic 63–77
[~2021-01-22] VITALS: Ht 155 cm; Wt 70.5 kg
[~2021-01-22] MED LIST changes: +ASCO500C17 PO; +ASPI-999 PO; +LACTATED RINGERS 1,000 ML IV ONE; +LACTATED RINGERS 1,000 ML IV STA; +ONDANSETRON 4 MG/2 ML (SDV) Z0FRAN IVP ONE; +ONDANSETRON 4 MG/2 ML (SDV) Z0FRAN ONE; +proPOfol 200 MG/20 ML (DIPRIVAN) VIAL IV ONE
--- NOTE | 2021-01-22 08:50 | Progress Note-Post Operative ---
Post-Operative Progess Note Surgeon (s)/Biofuels Operations Manager (s) Surgeon RHODA CARRASCO DO Biofuels Operations Manager: VARGAS WarrenII Pre-Operative Diagnosis Screening colon Post-Operative Diagnosis polyps diverticula Melanosis coli int hemorrhoids Procedure & Operative Findings Date of Procedure 01/22/21 Procedure Performed/Findings PROCEDURE NOTE: After informed consent was obtained, the patient was brought to the endoscopy suite, placed in bed in left lateral decubitus position. She was administered IV sedation by the DISPATCHER ELECTRIC POWER who then monitored her vitals the entire time, heart rate, blood pressure and pulse ox and the scope was inserted, pushed all the way to about 150 cm and pushed into the cecum. On the way in note some polyps in the Ascending colon and did a hot biopsy; there were two polyps, completely removed by the hot biopsy. In the cecum took a picture of appendiceal orifice and then slowly withdrew the scope insufflating to look circumferentially at the mendosa from the cecum, up the ascending colon to the hepatic flexure, then down the transverse colon, splenic flexure, into the descending colon down. In the sigmoid colon saw a few diverticula and took pictures of them, also noted some Melanosis coli. Finally into the rectal vault and retroflexed he scope. Took picture of the internal hemorrhoids. The patient tolerated the procedure. She was recovered in endoscopy suite. Anesthesia Type IV sedation by DISPATCHER ELECTRIC POWER Estimated Blood Loss Estimated blood loss (mL): scant Specimens/Packing Specimens Removed asc colon polyps RHODA CARARSCO DO Jan 22, 2021 08:50
--- NOTE | 2021-01-22 08:52 | Endoscopy Discharge Instruct ---
Endo Procedure/Findings Findings 1.: Polyp 2.: Diverticulosis 3.: Internal Hemorrhoids 4.: Other Findings (Melanosis coli) Discharge Instructions - Activity: You might feel a little sleepy until tomorrow. This is due to the medicine you received to relax you. Until tomorrow, you should: NOT drive a car, operate machinery or power tools. NOT drink any alcoholic beverages. NOT make any important decisions or sign importortant papers. Do not return to work until tomorrow, unless otherwise instructed. Resume previous activities tomorrow. Diet: Start by taking liquids. If you tolerate liquids, advance to solid food. 1.: Colonscopy in 5 years Notify Physician - If you experience excessive bleeding, unusual abdominal pain, fever, or chest pain, contact your doctor immediately. RHODA CARRASCO DO Jan 22, 2021 08:52
--- NOTE | 2021-01-22 15:08 | Anesthesia-General Post-Op ---
MAC Patient Condition Mental Status/LOC: Same as Preop Cardiovascular: Satisfactory Nausea/Vomiting: Absent Respiratory: Satisfactory Pain: Controlled Complications: Absent Post Op Complications Complications None Follow Up Care/Instructions Patient Instructions None needed. Anesthesiology Discharge Order Discharge Order Patient was seen after the procedure and she was doing well, no complaints, stable vital signs, no apparent adverse anesthesia problems. MARA DAVENPORT DO Jan 22, 2021 15:08
== END ==
LOC: ENDO 07:06
PROVIDERS: ATTEND Surgery
DX: Z12.11 Encounter for screening for malignant neoplasm of colon (principal); D12.2 Benign neoplasm of ascending colon; K57.30 Diverticulosis of large intestine without perforation or abscess without bleeding; K64.8 Other hemorrhoids; K63.89 Other specified diseases of intestine; K21.9 Gastro-esophageal reflux disease without esophagitis; I10 Essential (primary) hypertension; E78.5 Hyperlipidemia, unspecified; L29.0 Pruritus ani; E11.9 Type 2 diabetes mellitus without complications; F32.9 Major depressive disorder, single episode, unspecified; Z79.82 Long term (current) use of aspirin; Z79.84 Long term (current) use of oral hypoglycemic drugs; Z87.891 Personal history of nicotine dependence; Z79.899 Other long term (current) drug therapy
CPT/HCPCS: 88305

== ENCOUNTER → 2021-07-23 | Outpatient (RCR) | payer MEDICARE ==
[~2021-07-23] MED LIST changes: -LACTATED RINGERS 1,000 ML IV ONE; -LACTATED RINGERS 1,000 ML IV STA; -ONDANSETRON 4 MG/2 ML (SDV) Z0FRAN IVP ONE; -ONDANSETRON 4 MG/2 ML (SDV) Z0FRAN ONE; -proPOfol 200 MG/20 ML (DIPRIVAN) VIAL IV ONE
== END | disposition home or self-care (01) ==
PROVIDERS: ATTEND Nurse Practitioner
DX: S52.531D Colles' fracture of right radius, subsequent encounter for closed fracture with routine healing (principal); W19.XXXD Unspecified fall, subsequent encounter

== ENCOUNTER → 2021-07-24 | Outpatient (CLI) | payer MEDICARE ==
--- NOTE | 2021-07-24 16:48 | Diagnostic Imaging Report ---
INDICATION: Postmenopausal COMPARISON: None FINDINGS: The bone mineral density of the spine, the hips of the pelvis was measured. The T score for the spine is -2.0. The T score for the left hip is -1.1 and for the right hip -1.3. The T score for the left femoral neck is -1.8 and for the right femoral neck -2.0. All of these values indicate osteopenia. AP Spine L1-L4: [BMD (g/cm2): 0.960] [T-Score: -2.0] [Z-Score: -0.2] [BMD Previous: NA] [BMD % Change: NA] LT Hip Neck: [BMD (g/cm2): 0.783] [T-Score: -1.8] [Z-Score: 0.3] LT Hip Total: [BMD (g/cm2):0.863] [T-Score:-1.1] [Z-Score: 0.8] [BMD Previous: NA] [BMD % Change: NA] RT Hip Neck: [BMD (g/cm2):0.765] [T-Score:-2.0] [Z-Score:0.1] RT Hip Total: [BMD (g/cm2):0.849] [T-score:-1.3] [Z-Score:0.7] [BMD Previous:NA] [BMD % Change:NA] *Indicates significant change from prior examination based on 95% confidence level. World Health Organization criteria for BMD interpretation classify patients as Normal (T-score at or above -1.0), Osteopenic (T-score between -1.0 and -2.5) or Osteoporotic (T-score at or below -2.5). LIMITATIONS AND MODIFICATION: None. FRACTURE RISK (FRAX SCORE): The ten year probability of (%): Major Osteoporotic Fracture: [22.3] Hip Fracture: [5.9] IMPRESSION: 1. There is osteopenia of the spine, the hips and the femoral necks. 2. See below National Osteoporosis Foundation guidelines on when to potentially initiate pharmacologic therapy. Based on the National Osteoporosis Foundation Guidelines, pharmacologic treatment should be initiated in any of the following, unless clinical conditions suggest otherwise: * Any patient with prior fragility fracture of the hip or vertebrae. A spine fracture indicates 5X risk for subsequent spine fracture and 2X risk for subsequent hip fracture. * Osteoporosis (T-score <-2.5). * Postmenopausal women and men age 50 and older with low bone mass/osteopenia (T-score between -1.0 and -2.5) by DXA and 10-year major osteoporotic fracture greater than 20% or a 10-year probability of hip fracture greater than 3%. These fracture risks are supplied above in the FRAX score, if applicable. * Clinician judgement and/or patient preferences may indicate treatment for people with 10-year fracture probabilities above or below these levels. Dictated by: Dictated on workstation # [id number]
== END ==
LOC: RAD 12:56
PROVIDERS: ATTEND Internal Medicine
DX: M85.89 Other specified disorders of bone density and structure, multiple sites (principal); M80.00XA Age-related osteoporosis with current pathological fracture, unspecified site, initial encounter for fracture; Z78.0 Asymptomatic menopausal state
CPT/HCPCS: 77080

== ENCOUNTER → 2021-08-20 | Outpatient (RCR) | payer MEDICARE | END | disposition home or self-care (01) | PROVIDERS: ATTEND Nurse Practitioner | DX: S52.531D Colles' fracture of right radius, subsequent encounter for closed fracture with routine healing (principal); W19.XXXD Unspecified fall, subsequent encounter ==

== ENCOUNTER 2021-09-18 12:55 | Outpatient (RCR) | payer MEDICARE | END 2021-09-20 | disposition home or self-care (01) | PROVIDERS: ATTEND Nurse Practitioner | DX: S52.531D Colles' fracture of right radius, subsequent encounter for closed fracture with routine healing (principal); W19.XXXD Unspecified fall, subsequent encounter ==

== ENCOUNTER 2021-10-03 09:30 | Outpatient (RCR) | payer MEDICARE | END 2021-10-20 | disposition home or self-care (01) | PROVIDERS: ATTEND Nurse Practitioner | DX: S52.531D Colles' fracture of right radius, subsequent encounter for closed fracture with routine healing (principal); W19.XXXD Unspecified fall, subsequent encounter ==

== ENCOUNTER → 2022-07-23 | Outpatient (CLI) | payer MEDICARE ==
[~2022-07-23] VITALS: Wt 70.5 kg
[~2022-07-23] MED LIST changes: +IRON DEXTRAN 1,000 MG/NS 250 ML IVPB IV ONE; +IRON DEXTRAN 25 MG/NS 6.25 ML TOTAL VOLUME IV ONE
[2022-07-23 11:32] VITALS: BP 156/72
== END ==
LOC: SDC 11:02
PROVIDERS: ATTEND Internal Medicine
DX: D50.9 Iron deficiency anemia, unspecified (principal)
CPT/HCPCS: 96365

== ENCOUNTER → 2022-08-26 | Outpatient (CLI) | payer MEDICARE ==
[~2022-08-26] MED LIST changes: -IRON DEXTRAN 1,000 MG/NS 250 ML IVPB IV ONE; -IRON DEXTRAN 25 MG/NS 6.25 ML TOTAL VOLUME IV ONE
--- NOTE | 2022-08-26 13:35 | Diagnostic Imaging Report ---
INDICATION: Palpable lump right breast. COMPARISON: Prior mammogram from 07/06/2019. TECHNIQUE: Unilateral right 2D and 3D diagnostic mammography was performed with CAD. A BB marker was placed at the area of palpable abnormality in the inferior right breast. FINDINGS: Scattered fibroglandular densities in the right breast are noted. There is an area of density at the area of palpable abnormality in the inferior right breast at mid depth which is new since the prior mammogram from 2019. No suspicious microcalcifications are seen. The right axilla is unremarkable. IMPRESSION: Focal density at the area of palpable abnormality in the inferior right breast. Further evaluation with ultrasound is recommended and will be performed today. ACR BI-RADS Category 0: Incomplete. (Needs additional imaging evaluation). Result letter will be mailed to the patient. Note: At least 10% of breast cancer is not imaged by mammography. Dictated by: Dictated on workstation # [id number]
--- NOTE | 2022-08-26 15:09 | Diagnostic Imaging Report ---
INDICATION: Right breast lump. COMPARISON: Correlation is made with the diagnostic mammogram from earlier this same day. FINDINGS: Sonographic interrogation of the area of lump in the inferior right breast was performed. There is a hypoechoic nodule at the 6:30 location, 1 to 2 cm from the nipple, measuring 7 mm x 5 mm x 6 mm. This may account for the mammographic abnormality. This does correspond to the patient's palpable abnormality. No definite internal blood flow is seen. No posterior acoustic shadowing is present. IMPRESSION: Hypoechoic solid nodule at the area of palpable abnormality in the inferior right breast. This is indeterminate. Tissue sampling would be recommended. This would be amenable to ultrasound-guided core biopsy. ACR BI-RADS Category 4: Suspicious abnormality. Dictated by: Dictated on workstation # [id number]
== END ==
LOC: RAD 12:56
PROVIDERS: ATTEND Internal Medicine
DX: N63.13 Unspecified lump in the right breast, lower outer quadrant (principal)
CPT/HCPCS: 76642; 77065; G0279

== ENCOUNTER → 2022-09-04 | Outpatient (CLI) | payer MEDICARE | LOC: CARD 09:22 | PROVIDERS: ATTEND Nurse Practitioner Family | DX: R06.09 Other forms of dyspnea (principal) | CPT/HCPCS: 93306 ==

== ENCOUNTER → 2022-09-05 | Outpatient (CLI) | payer MEDICARE ==
[~2022-09-05] MED LIST changes: +LIDOCAINE 1% INJ 30 ML (XYLOCAINE) VIAL INJ ONE
--- NOTE | 2022-09-05 16:44 | Diagnostic Imaging Report ---
INDICATION: Right breast nodule. Patient presents for ultrasound-guided right breast biopsy. Patient returned to the department to undergo a right breast biopsy with ultrasound. However, upon a pre-procedure scanning, the previously noted nodule at the 6:30 location of the right breast was no longer demonstrated. This may have represented breast tissue on prior exam. No concerning mass is identified on today's study. However, there is an ovoid slightly echogenic mass just below the skin surface at the 6:30 to 7 o'clock location of the right breast, 1 to 2 cm from the nipple corresponding to the patient's palpable abnormality. This has the appearance of a lipoma. This measures 1.4 x 0.6 x 1.2 cm. No other masses are seen. Due to the findings, a biopsy was not performed. IMPRESSION: No concerning breast mass is identified on today's study, therefore, no biopsy was performed. The patient does however have a lipoma at the area of palpable abnormality at the 6:30 location of the right breast. Dictated by: Dictated on workstation # [id number]
== END ==
LOC: RAD 13:57
PROVIDERS: ATTEND Internal Medicine
DX: D17.79 Benign lipomatous neoplasm of other sites (principal); N63.10 Unspecified lump in the right breast, unspecified quadrant

== ENCOUNTER → 2022-09-17 | Outpatient (CLI) | payer MEDICARE ==
[~2022-09-17] VITALS: Ht 154 cm; Wt 69.0 kg
[~2022-09-17] MED LIST changes: +CATHETER FLUSH 10 ML SYR IVP PRN; -LIDOCAINE 1% INJ 30 ML (XYLOCAINE) VIAL INJ ONE; +REGADENOSON 0.4 MG/5 ML SYR (LEXISCAN) IV ONE
[2022-09-17 09:36] VITALS: BP 174/69
--- NOTE | 2022-09-17 21:10 | STRESS TEST ---
DATE OF SERVICE: 09/17/2022 RESTING AND POST REGADENOSON TECHNETIUM-99M TETROFOSMIN SPECT CT IMAGING ORDERING PHYSICIAN: Keshia Fenton APRN PRIMARY PHYSICIAN: Dr. Webster. CLINICAL DIAGNOSIS: Shortness of breath. Baseline images were carried out after injection of 10.42 mCi of technetium-99m tetrofosmin. This was followed by 0.4 mg regadenoson and 29.7 mCi technetium-99m tetrofosmin for stress imaging. The electrocardiogram showed sinus rhythm at baseline. It did not change significantly with regadenoson infusion. The patient noted shortness of breath following regadenoson infusion, which resolved in a few minutes. Review of images at rest and following stress does not indicate any significant perfusion defects consistent with myocardial ischemia or infarction. Gated images show normal global left ventricular systolic function with normal regional wall motion. Left ventricular ejection fraction is calculated to be 69%. CONCLUSIONS: 1. No evidence of any significant myocardial ischemia or infarction on this study. 2. Normal regional wall motion. 3. Normal global left ventricular systolic function with a calculated ejection fraction 69%. Job ID: [id number] DocumentID: [id number] Dictated Date: 09/17/2022 18:38:22 Federal Mediator Date: 09/17/2022 21:09:00 Dictated By: JANES CID MD; RANDOLPH; FACP; FACC;
== END ==
LOC: CARD 07:52
PROVIDERS: ATTEND Nurse Practitioner Family
DX: R06.02 Shortness of breath (principal)
CPT/HCPCS: 78452; 93017; A9502

== ENCOUNTER 2022-11-19 09:53 | Day surgery (SDC) | payer MEDICARE ==
[~2022-11-19] VITALS: Ht 152 cm; Wt 70.0 kg
[2022-11-19] VITALS (14 sets, daily range): BP systolic 108–169; BP diastolic 51–90
[~2022-11-19 09:53] MED LIST changes: -CATHETER FLUSH 10 ML SYR IVP PRN; -REGADENOSON 0.4 MG/5 ML SYR (LEXISCAN) IV ONE
[2022-11-19] MEDS ORDERED: LIDOCAINE 1% INJ 20 ML VIAL ONE ×2 (10:22→10:24)
[2022-11-19] MEDS ORDERED: HEParin (CATH LAB) 1,000 ML IV ONE (10:22)
[2022-11-19] MEDS ORDERED: NS IV 1000 ML 1,000 ML ONE (10:24)
[2022-11-19] MEDS ORDERED: NS IV 1000 ML 1,000 ML IV ONE (10:30)
[2022-11-19 10:50] LABS: HEMATOCRIT 39 % (35-52); MEAN CORPUSCULAR HEMOGLOBIN 31 pg (25-34); MEAN CORPUSCULAR HGB CONC 33 g/dL (32-36); MEAN CORPUSCULAR VOLUME 93 fL (80-99); MEAN PLATELET VOLUME 9.4 fL (9.0-12.2); PLATELET COUNT 246 10^3/uL (130-400); WHITE BLOOD COUNT 4.8 10^3/uL (4.3-11.0)
[2022-11-19 10:59] LABS: INR 0.9 (0.8-1.4); PROTHROMBIN TIME PATIENT 12.7 SEC (12.2-14.7)
[2022-11-19 11:07] LABS: ALBUMIN 4.1 GM/DL (3.2-4.5); BILIRUBIN,TOTAL 0.5 MG/DL (0.1-1.0); CALCIUM 9.4 MG/DL (8.5-10.1); CREATININE SERUM 1.93 MG/DL (0.60-1.30); POTASSIUM 4.1 MMOL/L (3.6-5.0); TOTAL PROTEIN 6.8 GM/DL (6.4-8.2)
[2022-11-19] MEDS ORDERED: EMPA10TA PO (11:10)
[2022-11-19] MEDS ORDERED: INSU100V52 SQ (11:12)
[2022-11-19] MEDS ORDERED: fentaNYL INJ 100 MCG/2 ML AMP ONE ×2 (13:26→14:47)
[2022-11-19] MEDS ORDERED: MIDAZOLAM 5 MG/5 ML (VERSED) VIAL ONE ×2 (13:26→14:47)
[2022-11-19] MEDS ORDERED: ceFAZolin INJECTION 1,000 MG ONE (13:26)
--- NOTE | 2022-11-19 16:02 | Cardiac Procedure Note-CS/ASA ---
Pre-Procedure Note Pre-Op Procedure Note Date of Available H&P: Oct 04, 2022 Date H&P Reviewed: November 19, 2022 Time H&P Reviewed: 13:15 History & Physical: H&P Reviewed Changes from last HP ILR transmission demonstrated a 4 second pause at 0819 on 11/07/22 (off any rate- lowering meds) Moderate Sedation PreProcedure ASA Score 3 Airway Lungs Heart ASA score ASA 1: a normal healthy patient ASA 2: a patient with a mild systemic disease (mid diabetes, controlled hypertension, obesity ASA 3: a patient with a severe systemic disease that limits activity (angina, COPD, prior Myocardial infarction) ASA 4: a patient with an incapacitating disease that is a constant threat to life (CHF, renal failure) ASA 5: a moribund patient not expected to survive 24 hrs. (ruptured aneurysm) ASA 6: a declared brain- patient whose organs are being harvested. For emergent operations, add the letter E after the classification Mallampati Classification Grade 2 Sedation Plan Analgesia, Amnesia, Plan communicated to team members The patient is an appropriate candidate to undergo the planned procedure, sedation, and anesthesia. The patient immediately re-assessed prior to indication. JANES CID MD FACP FAC CCDS November 19, 2022 16:02
[2022-11-19] MEDS ORDERED: NS IV 1000 ML 1,000 ML IV SCH (16:15)
[2022-11-19] MEDS ORDERED: ACETAMINOPHEN 325 MG TABLET PO PRN (16:15)
[2022-11-19] MEDS ORDERED: oxyCODONE/APAP 5/325MG (PERCOCET 5) TABLET PO PRN (16:15)
[2022-11-19] MEDS ORDERED: PATIENT MAY USE OWN MEDS, ALL PO SCH (16:15)
[2022-11-19] MEDS ORDERED: MECLIZINE 25 MG (ANTIVERT) TAB PO PRN (16:15)
--- NOTE | 2022-11-19 18:41 | Diagnostic Imaging Report ---
INDICATION: Post device placement. PA and lateral chest obtained at 04:19 p.m. and compared with 02/20/2020. There is a dual-lead pacemaker in place over the left chest, with right atrial and ventricular leads. There is a loop recorder device in place. There is no pneumothorax or pleural fluid. There is poor inspiration with some central vascular congestion noted. IMPRESSION: Pacemaker in place as above with some central vascular congestion but no pneumothorax or pleural fluid or focal infiltrate. Dictated by: Dictated on workstation # [id number]
--- NOTE | 2022-11-19 20:01 | OPERATIVE REPORT ---
DATE OF SERVICE: 11/19/2022 PREOPERATIVE DIAGNOSIS: Sinus node dysfunction with symptomatic bradycardia. POSTOPERATIVE DIAGNOSIS: Sinus node dysfunction with symptomatic bradycardia. PROCEDURE: Dual-chamber pacemaker implantation. The patient is an 82-year-old lady who has a history of syncope and has not had pauses causing bradycardia. Beta blockers were discontinued a few months ago and the pauses seem to have resolved, but now she has had recurrence of pauses as documented on implantable loop recorder transmission, which indicated a 4-second pause at 8:19 a.m. on 11/07/2022. Dual chamber pacemaker implantation was carried out today after having obtained an informed consent. DESCRIPTION OF PROCEDURE: [facility] The left prepectoral area was prepared and draped in the usual sterile fashion. A 1% lidocaine used for local anesthesia. Modified Seldinger technique was used to advance guidewires into the left subclavian vein and the tips of the wires were placed in the right atrium. To make sure that the correct vessel has been entered, we did inject approximately 8 mL of contrast through the access needle into the vein prior to advancing the second wire. Subsequently, sharp and blunt dissection was used to make a pacemaker pocket. Good hemostasis was assured. The pocket was packed with gauze, soaked in saline. The wires were used to advance sheaths and wires were removed. The sheaths were used to advance leads and the sheaths were removed. All lead manipulation was carried out under fluoroscopy. These are active fixation leads. The ventricular lead was placed at the right ventricular apex against the intraventricular septum. The right atrial lead was placed at the right atrial appendage. Good sensing and capture thresholds were obtained. There was no diaphragmatic stimulation at maximum output. The leads were attached to the prepectoral fascia using sleeves. The pocket was thoroughly irrigated with saline after the gauze had been removed. Good hemostasis was again assured. The leads were attached to a dual chamber pacemaker and the pacemaker was placed in a Tyrx pouch and the pacemaker and the leads were placed in the pacemaker pocket. The pacemaker pocket was closed using 3-0 Vicryl. For securing the sleeves and the leads to prepectoral fascia, we had used 0 Ethibond. The patient tolerated the procedure well. Through the device, the right atrial capture threshold is 0.75 volts at 0.4 milliseconds. Right ventricular capture threshold is 0.5 volts at 0.4 milliseconds. R waves are measured at 7.5 millivolts. P waves are measured at 2.8 millivolts. Atrial pacing impedance is 627 ohms. Ventricular pacing impedance is 722 ohms. The pacemaker is in the AAIR to DDDR mode. Lower rate is 60 beats per minute. Upper tracking rate is 130 beats per minute. The atrial lead is Medtronic model 563863 with serial number [id number]. Ventricular lead is Medtronic model 739449 with serial number [id number]. The pacemaker is Medtronic model W1DR01 with serial number [id number]. Job ID: [id number] DocumentID: [id number] Dictated Date: 11/19/2022 15:54:29 Wax Cutter Date: 11/19/2022 19:59:00 Dictated By: JANES CID MD; RANDOLPH; FACP; FACC;
[2022-11-19] MEDS: ceFAZolin INJECTION 1,000 MG in NS (IVPB) 50 ML IV SCH (20:58)
[2022-11-19] MEDS: glipiZIDE XL 5 MG (GLUCOTROL XL) TAB PO SCH (20:58)
[2022-11-20] VITALS: BP 120/83
[2022-11-20 02:00] VITALS: BP 154/74
[2022-11-20 04:00] VITALS: BP 150/74
[2022-11-20] MEDS: ceFAZolin INJECTION 1,000 MG in NS (IVPB) 50 ML IV SCH ×2 (05:17→13:58)
[2022-11-20 05:18] LABS: HEMATOCRIT 37 % (35-52); HEMOGLOBIN 12.3 g/dL (11.5-16.0); MEAN CORPUSCULAR HEMOGLOBIN 31 pg (25-34); MEAN CORPUSCULAR HGB CONC 34 g/dL (32-36); MEAN CORPUSCULAR VOLUME 93 fL (80-99); MEAN PLATELET VOLUME 9.7 fL (9.0-12.2); PLATELET COUNT 233 10^3/uL (130-400); WHITE BLOOD COUNT 6.2 10^3/uL (4.3-11.0)
[2022-11-20 06:04] LABS: ALBUMIN 3.8 GM/DL (3.2-4.5); BILIRUBIN,TOTAL 0.3 MG/DL (0.1-1.0); CALCIUM 8.9 MG/DL (8.5-10.1); CREATININE SERUM 1.54 MG/DL (0.60-1.30); POTASSIUM 4.3 MMOL/L (3.6-5.0); TOTAL PROTEIN 6.3 GM/DL (6.4-8.2)
[2022-11-20 07:35] VITALS: BP 138/67
--- NOTE | 2022-11-20 07:56 | Progress Note - Cardiology ---
Cardiology SOAP Progress Note Subjective: Sitting up in bed States she feels good Mild discomfort at pacemaker insertion site No c/o CP, palpitations, SOB Objective: I&O/Vital Signs Side: left Swelling: without swelling Drainage: No Bruising: mild bruising Constitutional: AAO x 3, well-developed, well-nourished Respiratory: No accessory muscle use, No respiratory distress; chest expansion is symmetric, chest is bilaterally symmetric, lungs clear to auscultation Cardiovascular: regular rate-rhythm; No JVD; S1 and S2 Gastrointestional: No tender; soft, round; No guarding; audible bowel sounds Extremities: no lower extremity edema bilateral Neurologic/Psychiatric: grossly intact (moves all extremities) Skin: No rash on exposed areas, No ulcerations on exposed areas Results/Procedures: Labs Microbiology 11/19/22 MRSA Screen - Final, Complete MRSA not isolated Procedures NAME: YADI REDDING [facility] REC#: [id number] PT STATUS: REG [facility] : 1940 PHYSICIAN: JANES CID MD, MA, FACP, FACC, FSCAI, CCDS ADMIT DATE: 11/19/22/[facility] Signed Date of Exam:11/19/22 CHEST PA/LAT (2 VIEW) INDICATION: Post device placement. PA and lateral chest obtained at 04:19 p.m. and compared with 02/20/2020. There is a dual-lead pacemaker in place over the left chest, with right atrial and ventricular leads. There is a loop recorder device in place. There is no pneumothorax or pleural fluid. There is poor inspiration with some central vascular congestion noted. IMPRESSION: Pacemaker in place as above with some central vascular congestion but no pneumothorax or pleural fluid or focal infiltrate. Dictated by: Dictated on workstation # [id number] Dict: 11/19/22 1628 Trans: 11/20/22 0746 [facility] [id number] Interpreted by: ANGELA SIERRA MD Electronically signed by: ANGELA SIERRA MD 11/20/22 0746 A/P: Assessment: SSS with symptomatic pauses - Beta blockers were discontinued a few months ago and the pauses seem to have resolved, but now she has had recurrence of pauses as documented on implantable loop recorder transmission, which indicated a 4-second pause at 8:19 a.m. on 0 11/07/2022. - S/P Dual chamber pacemaker implantation on 11-19-22 H/o syncope, near-syncope - none since the later part of February 2020 - S/p ILR on 03/28/20 - showed a 3.0 pause on Apr 04, 2020 during which she was symptomatic - occurred in the presence of BB tx (Coreg 25mg BID) - Vertigo with no correlation on ILR of any arrhythmia: bradycardia, tachycardia, or pauses - MRI of the brain on Mar 23, 2020: Small punctate focus of restricted diffusion in the anterior medial aspect of the right frontal lobe with more faint areas of restricted diffusion in the left basal ganglia and left thalamus, which may represent foci of acute/subacute ischemia. No associated mass effect or hemorrhage is seen. . - Echocardiogram of 09-04-22 showed LVEF 60-65%. Grade 1 diastolic dysfunction. PASP 30-35 mmHg - MPI of 09-17-22 showed no evidence of ischemia or infarction. No regional wall motion abnormality. LVEF 69% - No significant stenosis seen on carotid u/s of Mar 23, 2020 DM 2 - management per PCP HTN - controlled GERD - managed by PCP Plan: S/P PPM implant on 11-19-22 - device functioning normally per interrogation carried out today Ok to discharge home today Continue home medications F/U on this Friday for dressing change F/U in 4-6 weeks for an appt with ISABELLA Copeland November 20, 2022 07:56
[2022-11-20] MEDS ORDERED: CEFU500T63 PO (07:57)
[2022-11-20] MEDS ORDERED: ASPIRIN 81 MG CHEW (CHILDREN'S ASA) PO SCH (09:00)
[2022-11-20] MEDS ORDERED: amLODIPine 5 MG (NORVASC) TAB PO SCH (09:00)
[2022-11-20] MEDS ORDERED: LOSARTAN 25 MG (COZAAR) TAB PO SCH (09:00)
[2022-11-20] MEDS ORDERED: ROSUVASTATIN 5 MG (CRESTOR) TABLET PO SCH (09:00)
[2022-11-20] MEDS ORDERED: EMPAGLIFLOZIN 10 MG TABLET (JARDIANCE) PO SCH (09:00)
[2022-11-20] MEDS ORDERED: VITAMIN D3 10 MCG (400 UNITS) TABLET PO SCH (09:00)
[2022-11-20] MEDS ORDERED: LORATADINE (CLARITIN) 10 MG TAB PO SCH (09:00)
[2022-11-20] MEDS: glipiZIDE XL 5 MG (GLUCOTROL XL) TAB PO SCH (09:38)
[2022-11-20 09:39] VITALS: BP 163/72
[2022-11-20 11:54] VITALS: BP 156/81
--- NOTE | 2022-11-20 17:55 | Progress Note - Cardiology ---
Cardiology SOAP Progress Note Subjective: No cp or palp or syncope or shortness of breath or focal weakness or discomfort at site of pacemaker implantation Objective: I&O/Vital Signs 11/20/22 11/20/22 11/20/22 11/20/22 07:29 07:35 08:00 09:39 Temp 37.2 Pulse 70 69 73 Resp 12 16 B/P (MAP) 138/67 (90) 163/72 (102) Pulse Ox 94 O2 Delivery Room Air Room Air Room Air 11/20/22 11/20/22 11:54 12:21 Temp 37.2 Pulse 79 76 Resp 12 B/P (MAP) 156/81 (106) Pulse Ox 91 O2 Delivery Room Air 11/20/22 00:00 Intake Total 650 ml Output Total 500 ml Balance 150 ml Side: left Swelling: without swelling Drainage: No Bruising: mild bruising Constitutional: AAO x 3, well-developed, well-nourished Respiratory: No accessory muscle use, No respiratory distress; chest expansion is symmetric, chest is bilaterally symmetric, lungs clear to auscultation Cardiovascular: regular rate-rhythm; No JVD; S1 and S2 Gastrointestional: No tender; soft, round; No guarding; audible bowel sounds Extremities: no lower extremity edema bilateral Neurologic/Psychiatric: grossly intact (moves all extremities) Skin: No rash on exposed areas, No ulcerations on exposed areas Results/Procedures: Labs Laboratory Tests 11/19/22 21:03: Glucometer 131H 11/20/22 05:10: White Blood Count 6.2, Red Blood Count 3.94, Hemoglobin 12.3, Hematocrit 37, Mean Corpuscular Volume 93, Mean Corpuscular Hemoglobin 31, Mean Corpuscular Hemoglobin Concent 34, Red Cell Distribution Width 12.5, Platelet Count 233, Mean Platelet Volume 9.7, Sodium Level 139, Potassium Level 4.3, Chloride Level 107, Carbon Dioxide Level 22, Anion Gap 10, Blood Urea Nitrogen 23H, Creatinine 1.54H, Estimat Glomerular Filtration Rate 34, BUN/Creatinine Ratio 15, Glucose Level 76, Calcium Level 8.9, Corrected Calcium 9.1, Total Bilirubin 0.3, Aspartate Amino Transf (AST/SGOT) 17, Alanine Aminotransferase (ALT/SGPT) 9, Alkaline Phosphatase 54, Total Protein 6.3L, Albumin 3.8 Microbiology 11/19/22 MRSA Screen - Final, Complete MRSA not isolated Laboratory Tests 11/19/22 10:35 11/20/22 05:10 A/P: Assessment: SSS with symptomatic pauses - Beta blockers were discontinued a few months ago and the pauses seem to have resolved, but now she has had recurrence of pauses as documented on implantable loop recorder transmission, which indicated a 4-second pause at 8:19 a.m. on 11/07/2022. - S/P Dual chamber pacemaker implantation on 11-19-22 H/o syncope, near-syncope - none since the later part of February 2020 - S/p ILR on 03/28/20 - showed a 3.0 pause on Apr 04, 2020 during which she was symptomatic - occurred in the presence of BB tx (Coreg 25mg BID) - Vertigo with no correlation on ILR of any arrhythmia: bradycardia, tachycardia, or pauses - MRI of the brain on Mar 23, 2020: Small punctate focus of restricted diffusion in the anterior medial aspect of the right frontal lobe with more faint areas of restricted diffusion in the left basal ganglia and left thalamus, which may represent foci of acute/subacute ischemia. No associated mass effect or hemorrhage is seen. . - Echocardiogram of 09-04-22 showed LVEF 60-65%. Grade 1 diastolic dysfunction. PASP 30-35 mmHg - MPI of 09-17-22 showed no evidence of ischemia or infarction. No regional wall motion abnormality. LVEF 69% - No significant stenosis seen on carotid u/s of Mar 23, 2020 DM 2 - management per PCP HTN - controlled GERD - managed by PCP Plan: S/P PPM implant on 11-19-22 - device functioning normally per interrogation carried out today Ok to discharge home today Continue home medications F/U on this Friday for dressing change F/U in 4-6 weeks for an appt with JANES Joseph MD [facility] FAC CCDS November 20, 2022 17:55
== END 2022-11-20 14:35 ==
LOC: CATH 09:53 → CSD 16:35 → CATH 11-20 14:35
PROVIDERS: ATTEND Internal Medicine Cardiovascular Disease
DX: I49.5 Sick sinus syndrome (principal); E11.9 Type 2 diabetes mellitus without complications; I10 Essential (primary) hypertension; R42 Dizziness and giddiness; K21.9 Gastro-esophageal reflux disease without esophagitis; Z79.84 Long term (current) use of oral hypoglycemic drugs; Z86.79 Personal history of other diseases of the circulatory system; Z79.4 Long term (current) use of insulin; Z79.899 Other long term (current) drug therapy
CPT/HCPCS: 33208; 71046; 80053 ×2; 80061; 82947; 85027 ×2; 85610; 85730; 87081; 93005 ×2; C1785; C1898 ×2; 36415